=== PATIENT | male | born 1965 | race Caucasian/White ===

== ENCOUNTER → 2020-05-12 07:14 | Outpatient (CLI) | payer BC, SELFPAY ==
--- NOTE | 2020-05-12 07:21 | CT_ITS ---
PROCEDURE: CT LUNG SCREENING CLINICAL INDICATION: H/O NICOTINE DEPENDENCE COMPARISON: No exams were available for comparison TECHNIQUE: The exam was performed on a GE Light Speed [address] scanner using 2.90 mGy CTDI. A low dose helical CT CHEST was performed on a multi-detector scanner. All CT scans at the facility use one or more dose reduction, viz: automated exposure control, ma/kV adjustment per patient size (including targeted exams where dose is matched to indication, i.e. head), or iterative reconstruction technique. The LDCT was performed in a facility that meets the criteria for the screening program. Data regarding this exam was submitted to ACR which is an approved registry. The order for this exam indicates that it came as a result of a lung cancer screening counseling shard decision-making visit that included all the elements required of such a visit including smoking cessation. The radiologist interpreting this exam meets the CMS criteria for the LDCT lung cancer screening program. The exam is reported using the Lung-RADS classification scale and reported to the ACR registry. NOTE: This study was performed for the specific purposes of lung cancer screening and is not an alternative to diagnostic chest CT. RADIATION DOSE: CTDI vol(CT dose Index-volume) = 2.90mG DLP (Dose Length Product) = mGcm FINDINGS: Centrilobular and paraseptal emphysematous changes are noted bilaterally. Calcified granuloma in the left upper lobe. No lobar consolidation, pleural effusions or pneumothorax. The central tracheobronchial tree is patent. No suspicious lung nodules. The heart size is normal. Atherosclerotic vascular calcification of the thoracic aorta and the coronary arteries. No significant mediastinal adenopathy. Evaluation of hilar is limited due to lack of intravenous contrast although no gross lymphadenopathy is noted. Cholecystectomy is noted. Otherwise the visualized upper abdominal solid organs are unremarkable within the limitations of unenhanced low-dose study. Visualized osseous structures are unremarkable. The visualized thyroid gland is unremarkable. IMPRESSION: Lung-RADS Category 1 Negative Follow-up: Follow-up low-dose CT in 12 months. Dictated by: Luz King 05/12/2020 12:47 Luz King in [place] 05/12/2020 12:47
== END ==
PROVIDERS: PCP Family Medicine; Visit Provider Family Medicine
DX: Z87.891 Personal history of nicotine dependence (principal); Z12.2 Encounter for screening for malignant neoplasm of respiratory organs
CPT/HCPCS: 71271

== ENCOUNTER → 2021-05-21 15:13 | Outpatient (CLI) | payer BC, SELFPAY ==
--- NOTE | 2021-05-21 15:16 | CT_ITS ---
FINAL REPORT CLINICAL HISTORY: smoker 1 ppd x 40 years. copd, cad COMPARISON: May 12, 2020 FINDINGS: Low-Dose Chest CT CTDI vol (mGy): 2.90 DLP (mGy-cm): 98.47 Axial images were obtained from the lung apex to the mid abdomen by computed tomography. Low-dose protocol was utilized. FINDINGS: CHEST: There is no axillary adenopathy. There is no hilar or mediastinal adenopathy. The heart is proper size. There are moderate coronary artery calcifications. There is no pericardial or pleural effusion. Limited images of the upper abdomen are unremarkable. Lung window images demonstrate no suspicious infiltrate or nodule. There are mild changes of emphysema with mild pulmonary scarring. There is calcified granuloma in the left lung. IMPRESSION: Lung RADS category 1. Recommend 12 month follow-up low-dose chest CT. Reviewed, Interpreted and Dictated by Filipe Brown III, MD Transcribed by Piper Tolbert Authenticated by Filipe Brown III, MD on 05/21/2021 04:30:[address] [facility]
== END ==
PROVIDERS: PCP Family Medicine; Visit Provider Nurse Practitioner
DX: Z87.891 Personal history of nicotine dependence (principal); Z12.2 Encounter for screening for malignant neoplasm of respiratory organs
CPT/HCPCS: 71271

== ENCOUNTER → 2021-05-31 16:45 | Outpatient (CLI) | payer BC, SELFPAY | PROVIDERS: PCP Family Medicine; Visit Provider Internal Medicine | DX: Z11.52 Encounter for screening for COVID-19 (principal) | CPT/HCPCS: C9803; U0003; U0005 ==

== ENCOUNTER 2021-06-02 08:46 | Day surgery (SDC) | payer BC, SELFPAY ==
[2021-05-31 13:29] VITALS: BMI 26.4
[2021-06-02 09:12] VITALS: BP 147/99; PULSE 79; RESP 18; TEMP 36.7; O2SAT 96
--- NOTE | 2021-06-02 10:17 | HMH.ANESCL ---
[facility] Anesthesia Checklist - Patient Identification Patient Identification: Arm Band - Structural Data Admitted From: Home Planned Operative Procedure/s: colonoscopy Consent for Planned Operative Procedure(s) Verified: Yes Verified Documents: Surgical Consent, History and Physical - NPO Status Verified Time NPO: 00:00 - Additional verifications Anesthesia Reactions: No - Airway Assessment C-Spine Mobility Assessed: Yes (mp2) TMJ Mobility Assessed: Yes Dentition: Good Dentition - Neurological Assessment Level of Consciousness: Awake, Alert - Anesthesia Plan Anesthesia Risk discussed: Yes Anesthesia Plan: Verified ASA Class: III Anesthesia Type: MAC [facility] History I have reviewed the patient's past medical history: Yes Medical History: Reports:: Cancer (lung), Coronary Artery Disease, Diabetes Mellitus Type 2, Hyperlipidemia, Hypertension Denies:: Diabetes Mellitus Type 1, Internal Pacemaker, MRSA, Seizures *Have you ever received a pneumonia vaccine?: No *Have you received a flu vaccine this season?: No Anesthesia experience/problems:: nac Laterality Cases: Left: Arthroscopy Knee, Bilateral: Tonsillectomy Other Surgeries: Yes: Cholecystectomy. No: Pacemaker Amputation: No - *Social History Last grade of school completed: High school graduate Smoking Status: Current every day smoker Tobacco Type: cigarettes # Packs/Day (cigarettes): 1 Alcohol Intake: never Substance Use Type: denies use *Occupational Status:: employed Housing: house Household Members: spouse *Travel in the last 8 weeks: None Family Hx:: No significant family history
[2021-06-02 10:22] VITALS: O2SAT 96
[2021-06-02 11:00] VITALS: BP 108/68; PULSE 76; RESP 18; TEMP 36.4; O2SAT 94
--- NOTE | 2021-06-02 11:00 | HMH.SCOPE ---
- Procedure: Date: 06/02/21 Patient Date of :: 1965 Procedure Performed:: Colonoscopy Indications:: The patient is a 55 year old with a positive cologuard test Performing Provider:: Deejay Burrell MD Referring Provider:: Jorge Ling MD Sedation:: See RN notes Procedure:: After placing the patient in the left lateral decubitus position, the colonoscopy was gently inserted into the rectum and under direct visualization advanced to the cecum which was identified by transillumination in the right lower quadrant, identification of the ileocecal valve, appendiceal orifice, and cecal strap. Color, texture, mucosa, and anatomy of the colon were carefully examined with the scope. Findings:: Anal canal: normal Rectum: Internal hemorrhoids Sigmoid colon: Pedunculatd polyp approximately 2-2.5 cm in size at rectosigmoid junction. Removed with snare cautery polypectomy. Polyp was retrieved. Sessile polyp 5-6 mm in size. Removed with snare cautery polypectomy. Polyp was retrieved. Few small diverticula Descending colon: Sessile polyp 5 mm in size. Removed with snare cautery polypectomy. Polyp was retrieved Splenic flexure: normal Transverse colon: normal without polyps or inflammatory changes Hepatic flexure: normal Ascending colon: normal without polyps or inflammatory changes Cecum: normal Terminal ileum: not visualized Fair bowel preparation. Time was spent irrigating and cleansing mucosa Recommendations:: Await pathology results Repeat colonoscopy in 2 years Complications:: None Estimated blood obtained (mL): 0
[2021-06-02 11:10] VITALS: BP 117/76; PULSE 71; RESP 18; TEMP 36.4; O2SAT 97
[2021-06-02 11:20] VITALS: BP 109/68; PULSE 70; RESP 18; TEMP 36.4; O2SAT 96
[2021-06-02 11:30] VITALS: BP 111/68; PULSE 68; RESP 18; TEMP 36.4; O2SAT 97
[2021-11-11 10:59] LABS: POC Glucose,Bedside 178 (70-110)
== END 2021-06-02 11:30 | disposition home or self-care (01) ==
LOC: OUTP 08:47
PROVIDERS: PCP Family Medicine; Visit Provider Internal Medicine
PROC: 0DJD8ZZ Inspection of Lower Intestinal Tract, Via Natural or Artificial Opening Endoscopic (ICD-10-PCS; CPT 45378; principal; 2021-06-02 10:00)
DX: K64.9 Unspecified hemorrhoids (principal); K63.5 Polyp of colon; K57.32 Diverticulitis of large intestine without perforation or abscess without bleeding; I25.10 Atherosclerotic heart disease of native coronary artery without angina pectoris; E11.9 Type 2 diabetes mellitus without complications; E78.5 Hyperlipidemia, unspecified; I10 Essential (primary) hypertension; Z85.118 Personal history of other malignant neoplasm of bronchus and lung; Z72.0 Tobacco use; Z79.82 Long term (current) use of aspirin; Z79.899 Other long term (current) drug therapy
CPT/HCPCS: 45385; 45380; 82962; J2704

== ENCOUNTER → 2021-06-29 08:12 | Outpatient (CLI) | payer BC, SELFPAY | PROVIDERS: Visit Provider Internal Medicine | DX: Z01.812 Encounter for preprocedural laboratory examination (principal); Z11.52 Encounter for screening for COVID-19; Z86.010 Personal history of colon polyps | CPT/HCPCS: C9803; U0003; U0005 ==

== ENCOUNTER 2021-06-30 08:40 | Day surgery (SDC) | payer BC, SELFPAY ==
[2021-06-29 08:21] VITALS: BMI 26.4
[2021-06-30 08:53] VITALS: BP 157/98; PULSE 92; RESP 16; TEMP 36.5; O2SAT 98
--- NOTE | 2021-06-30 08:59 | HMH.ANESCL ---
[facility] Anesthesia Checklist - Patient Identification Patient Identification: Arm Band - Structural Data Admitted From: Home Planned Operative Procedure/s: Flex. sig Consent for Planned Operative Procedure(s) Verified: Yes - NPO Status Verified Time NPO: 00:00 - Additional verifications Anesthesia Reactions: No - Airway Assessment C-Spine Mobility Assessed: Yes TMJ Mobility Assessed: Yes Dentition: Dentures-good fit - Neurological Assessment Level of Consciousness: Awake Hx Seizures: No Numbness or tingling in extremities: No - Anesthesia Plan Anesthesia Risk discussed: Yes Anesthesia Plan: Verified ASA Class: III Anesthesia Type: MAC [facility] History I have reviewed the patient's past medical history: Yes Medical History: Reports:: Coronary Artery Disease, Diabetes Mellitus Type 2, Gastroesophageal Reflux Disease(GERD), Hyperlipidemia, Hypertension Denies:: Cancer, Diabetes Mellitus Type 1, Internal Pacemaker, MRSA, Seizures *Have you ever received a pneumonia vaccine?: No *Have you received a flu vaccine this season?: Yes Anesthesia experience/problems:: None Laterality Cases: Left: Arthroscopy Knee, Bilateral: Tonsillectomy Other Surgeries: Yes: Cholecystectomy. No: Pacemaker Amputation: No - *Social History Last grade of school completed: High school graduate Smoking Status: Current every day smoker Tobacco Type: cigarettes # Packs/Day (cigarettes): 1 Alcohol Intake: never Substance Use Type: denies use *Occupational Status:: employed Housing: house Household Members: spouse *Travel in the last 8 weeks: None Family Hx:: No significant family history
[2021-06-30 09:05] LABS: POC Glucose,Bedside 324 (70-110)
[2021-06-30 09:31] VITALS: O2SAT 98
--- NOTE | 2021-06-30 09:46 | HMH.SCOPE ---
- Procedure: Date: 06/30/21 Patient Date of :: 1965 Procedure Performed:: Flexible sigmoidoscopy Indications:: The patient had a screening colonoscopy recently and showed a large polyp at 25 cm. 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 Color, texture, mucosa, and anatomy of the colon were carefully examined with the scope. Findings:: At approximately 25 cm there was residual polyp tissue encountered which was less than 10 mm in size. Residual polyp was removed completely with snare cautery polypectomy and the polyp was retrieved. Recommendations:: Await pathology results Repeat fulll colonoscopy in 1 year Complications:: None Estimated blood obtained (mL): 0
[2021-06-30 09:47] VITALS: BP 124/79; PULSE 77; RESP 18; TEMP 36.3; O2SAT 96
[2021-06-30 09:57] VITALS: BP 121/80; PULSE 73; RESP 18; TEMP 36.3; O2SAT 98
[2021-06-30 10:07] VITALS: BP 121/72; PULSE 74; RESP 18; TEMP 36.3; O2SAT 98
[2021-06-30 10:17] VITALS: BP 130/81; PULSE 77; RESP 18; TEMP 36.3; O2SAT 99
== END 2021-06-30 10:17 | disposition home or self-care (01) ==
LOC: OUTP 08:42
PROVIDERS: PCP Family Medicine; Visit Provider Internal Medicine
PROC: 0DJD8ZZ Inspection of Lower Intestinal Tract, Via Natural or Artificial Opening Endoscopic (ICD-10-PCS; CPT 45330; principal; 2021-06-30 09:30)
DX: Z86.010 Personal history of colon polyps (principal); K63.5 Polyp of colon; I25.10 Atherosclerotic heart disease of native coronary artery without angina pectoris; E11.9 Type 2 diabetes mellitus without complications; K21.9 Gastro-esophageal reflux disease without esophagitis; E78.5 Hyperlipidemia, unspecified; I10 Essential (primary) hypertension; Z72.0 Tobacco use; Z79.82 Long term (current) use of aspirin; Z79.899 Other long term (current) drug therapy
CPT/HCPCS: 45338; 82962; J2704

== ENCOUNTER → 2022-02-07 10:30 | Outpatient (CLI) | payer BC, SELFPAY | PROVIDERS: PCP Nurse Practitioner; Visit Provider Nurse Practitioner | DX: R42 Dizziness and giddiness (principal) ==

== ENCOUNTER 2022-02-07 11:38 | Observation (INO) | payer BC, SELFPAY ==
[2022-02-07] VITALS (13 sets, daily range): BP systolic 146–175; BP diastolic 87–105; PULSE 68–94; RESP 18; TEMP 36.5–37.2; O2SAT 95–100; BMI 25.9
--- NOTE | 2022-02-07 11:53 | PC.NURSE ---
Checked patients blood sugar in [facility], it read HI. Pt is very unsteady and has been using a cane to get around which is not his normal.
--- NOTE | 2022-02-07 12:00 | ECG_ITS ---
APPROVED REPORT Exam: Resting ECG HR:73 bpm ECG Measurements Heart Rate 73 AXES MI 199 P 54 QRSd 96 QRS -10 QT 409 T -7 QTc 435 Conclusion SINUS RHYTHM MODERATE VOLTAGE CRITERIA FOR LVH, CONSIDER NORMAL VARIANT [MEETS CRITERIA IN ONE OF: R(aVL), S(V1), R(V5), R(V5/V6)+S(V1)] POSSIBLE SEPTAL MYOCARDIAL INFARCTION , PROBABLY OLD [30 ms Q WAVE IN V1/V2] BORDERLINE ECG UNCONFIRMED REPORT Electronically signed by : Ayo Guerrero MD 02/08/2022 20:12:27
[2022-02-07 12:07] LABS: VBG Base Excess 0.7 mmol/L (-2.4-2.3); VBG HCO3 26.9 mmol/L (23-30); VBG Oxygen Saturation 39.3 % (50-70); VBG PH 7.31 mmol/L (7.31-7.41); VBG Total CO2 28.6 mmol/L (23-27)
[2022-02-07 12:12] LABS: Chloride 85 mmol/L (98-107); Sodium 125 mmol/L (136-145)
[2022-02-07 12:14] LABS: Alanine Aminotransferase 43 U/L (12-78); Aspartate Amino Transferase 50 U/L (17-59); Blood Urea Nitrogen 13 mg/dl (9-20); Creatinine Clearance Estimated 147 mL/min (50-200); Estimated Glomerular Filt Rate 116 ml/min (>60); GFR (African American) 141 ML/MIN (>60)
[2022-02-07 12:15] LABS: Albumin Level 3.8 g/dl (3.5-5.0); Albumin/Globulin Ratio 1.2 (1.1-1.8); Alkaline Phosphatase 249 U/L (38-126); Bilirubin,Total 0.6 mg/dl (0.2-1.3); Calcium 9.7 mg/dl (8.4-10.2); Carbon Dioxide 32 mmol/L (22.0-30.0); Globulin 3.2 g/dL (1.3-3.2)
[2022-02-07 12:16] LABS: Basophils # 0.2 K/mm3 (0-0.2); Basophils % 1.4 % (0.1-2.0); Eosinophils # 0.2 K/mm3 (0.0-0.4); Eosinophils % 1.8 % (0.1-12.0); Hemoglobin 15.8 g/dL (14.1-18.0); Lymphocytes # 2.8 K/mm3 (0.7-4.5); Lymphocytes % 23.1 % (10-50); Mean Corpuscular HGB Conc 33.7 g/dL (31.8-35.4); Mean Corpuscular Hemoglobin 28.3 pg (27.0-31.2); Mean Platelet Volume 7.6 fl (7.4-10.4); Monocytes # 0.3 K/mm3 (0.1-1.0); Monocytes % 2.9 % (1.7-9.3); Neutrophils # 8.4 K/mm3 (1.8-7.8); Neutrophils % 70.8 % (37.0-80.0); Platelet Count 326 K/mm3 (142-424); Red Blood Count 5.59 M/mm3 (4.60-6.20); White Blood Count 11.9 K/mm3 (4.8-10.8)
[2022-02-07 12:24] LABS: Glucose 670 mg/dl (74-100)
--- NOTE | 2022-02-07 12:25 | PC.NURSE ---
CRITICAL LAB RECEIVED FROM [facility] IN LAB. GLUCOSE 670. PT NAME AND R/V. DR. HUFFMAN NOTIFIED
[2022-02-07 12:31] LABS: Acetone, Serum (Rapid) None Detected (None Detect)
[2022-02-07 12:40] LABS: Lactic Acid 2.4 mmol/L (0.7-2.1)
--- NOTE | 2022-02-07 12:52 | PC.NURSE ---
Pt up to the restroom to void at this time. Urine specimen collected and sent to lab.
[2022-02-07 12:55] LABS: Microscopic, Urine URINE MICROSCOPIC (MICROSCOPIC)
[2022-02-07 12:58] LABS: Appearance,Urine CLEAR (Clear); Bilirubin,Urine Negative (Negative); Blood, Urine Negative (Negative); Color,Urine YELLOW (Yellow); Glucose,Urine (UA) 3+ (Negative); Ketones,Urine Negative (Negative); Leukocyte Esterase,Urine Negative (Negative); Nitrate,Urine Negative (Negative); PH,Urine 5.5 (5.0-8.5); Protein,Urine Negative (Negative); Specific Gravity, Urine <= 1.005 (1.005-1.030); Urobilinogen,Urine 0.2 EU/dl (0.2)
[2022-02-07 13:10] LABS: Squamous Epithelial Cell,Urine Occasional #/hpf (0-5)
--- NOTE | 2022-02-07 13:22 | XR_ITS ---
PROCEDURE INFORMATION: Exam: XR Chest Exam date and time: 02/07/2022 1:47 PM Age: 56 years old Clinical indication: Cough TECHNIQUE: Imaging protocol: Radiologic exam of the chest. Views: 1 view. COMPARISON: CT LUNG SCREENING 05/21/2021 3:21 PM FINDINGS: Lungs: Unremarkable. No consolidation. Pleural spaces: Unremarkable. No pleural effusion. No pneumothorax. Heart/Mediastinum: Unremarkable. No cardiomegaly. Bones/joints: Unremarkable. IMPRESSION: No acute findings.
--- NOTE | 2022-02-07 13:22 | PC.NURSE ---
notified pharmacy of need for insulin drip for pt
--- NOTE | 2022-02-07 13:24 | CT_ITS ---
PROCEDURE INFORMATION: Exam: CT Head Without Contrast Exam date and time: 02/07/2022 1:39 PM Age: 56 years old Clinical indication: Dizziness; Additional info: Glucose >600, bidirectional nystagmus TECHNIQUE: Imaging protocol: Computed tomography of the head without contrast. Radiation optimization: All CT scans at this facility use at least one of these dose optimization techniques: automated exposure control; mA and/or kV adjustment per patient size (includes targeted exams where dose is matched to clinical indication); or iterative reconstruction. COMPARISON: No relevant prior studies available. FINDINGS: Brain: There is no acute intracranial hemorrhage or mass effect. Mild diffuse volume loss is within the range of normal for patient age. There are small vessel ischemic changes within the periventricular and subcortical white matter, but the normal pearce/white matter delineation is maintained. Cerebral ventricles: No ventriculomegaly. Paranasal sinuses: There is moderate right frontal sinus mucosal thickening. There is opacification of left scattered ethmoid air cells. There is moderate left sphenoid sinus mucosal thickening. Mastoid air cells: Visualized mastoid air cells are well aerated. Bones/joints: Unremarkable. No acute fracture. Soft tissues: Unremarkable. IMPRESSION: No acute hemorrhage or edema.
--- NOTE | 2022-02-07 13:25 | HMH.EDGENADL ---
Discharge Plan Disposition Patient Disposition: Admitted As Inpatient Condition: Serious Clinical Impressions Clinical Impression: Hyperosmolar hyperglycemic state (HHS) Discharge ED Provider: Tru Ponce General Adult HPI General Chief complaint: Hyper/Hypoglycemia Stated complaint: high sugar Time Seen by Provider: 02/07/22 13:00 History of Present Illness HPI narrative: Patient is a 56-year-old gentleman with past medical history of COPD not on home oxygen, [id number] diabetes on multimodal drug therapy who presents emergency department for evaluation of weakness. Over the last 48 hours patient has had dizziness, intermittent blurry vision, intermittent encephalopathy in the middle of the night transiently and oriented with return to baseline, patient has polyuria. Denies fevers, abdominal pain, vomiting. Patient states that he has a mild cough. No other acute complaints at this time. Related Data Home Medications Medication Instructions Recorded Confirmed aspirin 81 mg chewable tablet 81 mg PO DAILY heart health 06/01/21 02/07/22 zaleplon 5 mg capsule 5 mg PO HS sleep 06/01/21 02/07/22 amlodipine 10 mg-benazepril 20 mg 1 cap PO DAILY Hypertension 02/07/22 02/07/22 capsule cholecalciferol (vitamin D3) 1,250 1,250 mcg PO WEEKLY Supplement 02/07/22 02/07/22 mcg (50,000 unit) capsule clopidogrel 75 mg tablet 75 mg PO DAILY PLATELET INHIB[employer]OR 02/07/22 02/07/22 metoprolol tartrate 100 mg tablet 100 mg PO BID Hypertension 02/07/22 02/07/22 semaglutide 0.25 mg or 0.5 mg (2 0.25 mg SQ WEEKLY Diabetes 02/07/22 02/07/22 mg/1.5 mL) subcutaneous pen injector (Ozempic) Previous Rx's Medication Instructions Recorded cetirizine 10 mg capsule 10 mg PO DAILY allergies #90 caps 02/07/22 empagliflozin 25 mg tablet 25 mg PO DAILY Diabetes #90 tabs 02/07/22 fenofibric acid (choline) 135 mg 135 mg PO DAILY Cholesterol #90 02/07/22 capsule,delayed release caps glimepiride 2 mg tablet 2 mg PO BID Diabetes #180 tabs 02/07/22 lansoprazole 30 mg delayed 30 mg PO DAILY GERD #90 tabs 02/07/22 release,disintegrating tablet metformin 1,000 mg tablet 1,000 mg PO BID Diabetes #180 tabs 02/07/22 methocarbamol 750 mg tablet 750 mg PO TID PRN pain #270 tabs 02/07/22 rosuvastatin 40 mg tablet 40 mg PO DAILY Cholesterol #90 tabs 02/07/22 Allergies Allergy/AdvReac Type Severity Reaction Status Date / Time No Known Allergies Allergy Verified 02/07/22 10:17 [facility] Disclaimer: The information contained in this section may have been updated after the patient was seen, as this information can be updated by other users. Medical History (Updated 02/07/22 @ 18:15 by Kelton Aguirre MD) Allergic rhinitis Colon cancer COPD (chronic obstructive pulmonary disease) Diabetes mellitus, type 2 Dyslipidemia Essential hypertension GERD (gastroesophageal reflux disease) History of ASCVD History of gastroesophageal reflux (GERD) History of heart attack History of left heart catheterization (LHC) Hyperlipidemia Hypertension Osteoarthritis Pneumonia Primary generalized (osteo)arthritis Sleep apnea Tobacco use disorder Type 2 diabetes mellitus without complications Vitamin B12 deficiency Vitamin D deficiency Surgical History (Updated 02/07/22 @ 16:56 by Lissa Phan RN) History of cholecystectomy History of colonoscopy History of left knee surgery Family History (Updated 02/07/22 @ 16:57 by Lissa Phan RN) Father Family history of stroke Grandmother Family history of Alzheimer's disease Social History (Updated 02/07/22 @ 16:57 by Lissa Phan RN) Smoking Status: Current every day smoker tobacco type: cigarettes packs per day: 1 alcohol intake: never substance use type: denies use current occupational status: retired Travel in the last 8 weeks: None household members: spouse housing: house current occupational exposures/hazards: No caffeine: Yes ROS Obtained: Yes Systems r
--- NOTE | 2022-02-07 13:42 | PC.NURSE ---
Addendum entered by Winsome Eaton RN 02/07/22 13:42: PT BACK IN ROOM FROM CT Original Note: PT IN CT
--- NOTE | 2022-02-07 14:05 | PC.NURSE ---
CLARIFIED ORDER WITH ER MD FOR INSULIN DRIP AT 9 UNITS/HR, STATES TO RECHECK PT FSBS IN 30 MINUTES AFTER STARTING DRIP
[2022-02-07 14:07] LABS: Coronavirus 19, PCR Not Detected (NotDetected); Influenza A, PCR Not Detected (NotDetected); Influenza B, PCR Not Detected (NotDetected)
--- NOTE | 2022-02-07 14:39 | PC.NURSE ---
fsbs 532
[2022-02-07 14:43] LABS: POC Glucose,Bedside 538 (70-110)
--- NOTE | 2022-02-07 14:53 | PC.NURSE ---
notified ER of fsbs 538 states to decrease insulin drip rate to 5 units/hr
--- NOTE | 2022-02-07 15:07 | PC.NURSE ---
Spoke with trevor in care management regarding admission
[2022-02-07 15:18] LABS: POC Glucose,Bedside 523 (70-110)
--- NOTE | 2022-02-07 15:31 | HMH.PHAINT1 ---
Pharmacy Intervention Comments: MEDICATION RECONCILIATION COMPLETED ON PATIENT USING EXTERNAL FILL HISTORY FROM PHARMACY AND LIST FROM VISIT TODAY WITH MATA TORO. -THEA AYALA, JEWELLD
--- NOTE | 2022-02-07 15:44 | PC.NURSE ---
per supervisor wash house pt will be assigned to room 207, room will need to be cleaned first
--- NOTE | 2022-02-07 16:23 | PC.NURSE ---
re-checked blood sugar: 417 RODO vinson notified. pt given some more water, lights turned off and no other needs at this time
--- NOTE | 2022-02-07 16:24 | PC.NURSE ---
SPOKE WITH DR. QUIGLEY. HE STATED INSULIN GTT COULD BE D/C'D. HE WOULD TREAT PATIENT WITH IVF.
[2022-02-07 16:28] LABS: POC Glucose,Bedside 417 (70-110)
[2022-02-07 16:30] LABS: Reflex Lactic Add Lactic Reflex
--- NOTE | 2022-02-07 16:30 | PC.NURSE ---
report called to RODO Beckman on second floor at this time. States she will come down to transport pt.
--- NOTE | 2022-02-07 16:40 | PC.NURSE ---
pt to 2nd floor via WC with RN
--- NOTE | 2022-02-07 16:44 | PC.NURSE ---
patient arrived by wheelchair to floor from ED
--- NOTE | 2022-02-07 18:06 | EXP.HP ---
History of Present Illness *Admission Date: 02/07/22 *Reason for visit:: Weakness, dizziness, blurry vision *History of present illness: Patient is a 56-year-old male with past medical history of hypertension, type 2 diabetes, and COPD who came to the ER for feeling dizzy, tired, and intermittent blurry vision over the last 2 days. Patient is well sometimes feels confused and is urinating a lot. He is on several different medications for type 2 diabetes, although he has been out of his Jardiance as he is changing insurance. Patient reports he does not check his blood sugar very often. Review of systems is otherwise negative, no fever, chills, chest pain, shortness of breath. [facility] Disclaimer: The information contained in this section may have been updated after the patient was seen, as this information can be updated by other users. Medical History (Updated 02/07/22 @ 18:15 by Kelton Aguirre MD) Allergic rhinitis Colon cancer COPD (chronic obstructive pulmonary disease) Diabetes mellitus, type 2 Dyslipidemia Essential hypertension GERD (gastroesophageal reflux disease) History of ASCVD History of gastroesophageal reflux (GERD) History of heart attack History of left heart catheterization (LHC) Hyperlipidemia Hypertension Osteoarthritis Pneumonia Primary generalized (osteo)arthritis Sleep apnea Tobacco use disorder Type 2 diabetes mellitus without complications Vitamin B12 deficiency Vitamin D deficiency Surgical History (Updated 02/07/22 @ 16:56 by Lissa Phan RN) History of cholecystectomy History of colonoscopy History of left knee surgery Family History (Updated 02/07/22 @ 16:57 by Lissa Phan RN) Father Family history of stroke Grandmother Family history of Alzheimer's disease Social History (Updated 02/07/22 @ 16:57 by Lissa Phan RN) Smoking Status: Current every day smoker tobacco type: cigarettes packs per day: 1 alcohol intake: never substance use type: denies use current occupational status: retired Travel in the last 8 weeks: None household members: spouse housing: house current occupational exposures/hazards: No caffeine: Yes Review of Systems Constitutional Constitutional: Reports system reviewed and no additional complaints, except as documented, Denies anorexia, Denies body ache(s), Denies chills, Reports fatigue, Denies fever(s), Denies frequent falls, Denies headache(s), Reports lethargy and Reports weakness Eyes Eyes: Reports blurry vision and Reports change in vision ENT Ears, Nose, Mouth, and Throat: Reports disequilibrium, Reports dizziness and Denies headache(s) *Cardiovascular Cardiovascular: Denies chest pain, Denies chest pain at rest, Denies chest pain with activity, Denies claudication, Denies dyspnea, Denies dyspnea on exertion, Denies edema and Denies leg edema *Respiratory Respiratory: Denies chest congestion, Denies cough, Denies dyspnea, Denies dyspnea on exertion, Denies excessive phlegm production and Denies hemoptysis *Gastrointestinal Gastrointestinal: Denies abdominal pain, Denies belching, Denies bloating, Denies change in bowel habits, Denies constipation, Denies diarrhea, Denies dyspepsia, Denies heartburn, Denies hematemesis and Denies loose stools *Genitourinary Genitourinary: Denies difficulty urinating and Reports urinary frequency *Musculoskeletal Musculoskeletal: Reports abnormal gait and Denies myalgias *Neurologic Neurologic: Reports abnormal gait, Denies abnormal speech, Reports confusion, Reports disequilibrium, Reports dizziness, Denies localized weakness, Denies frequent falls, Denies headache(s) and Reports weakness Psychiatric Psychiatric: Denies anxiety, Reports confusion and Denies depression Endocrine Endocrine: Reports fatigue Meds Home Medications and Allergies Home Medications Medication Instructions Recorded Confirmed Type aspirin 81 mg chewable tablet 81 mg PO DAILY heart health 06/01/21 02/07/22 History zaleplon 5 mg
[2022-02-07 18:29] LABS: POC Glucose,Bedside 312 (70-110)
--- NOTE | 2022-02-07 18:47 | ECG_ITS ---
APPROVED REPORT Exam: Resting ECG HR:88 bpm ECG Measurements Heart Rate 88 AXES WA 179 P 62 QRSd 106 QRS -29 QT 386 T 67 QTc 431 Conclusion SINUS RHYTHM SEPTAL MYOCARDIAL INFARCTION , OF INDETERMINATE AGE [40+ ms Q WAVE IN V1/V2] ABNORMAL ECG UNCONFIRMED REPORT Electronically signed by : Ayo Guerrero MD 02/08/2022 20:11:30
[2022-02-07 19:00] LABS: Anion Gap 6.9 mEq/L (5-15); Blood Urea Nitrogen 12 mg/dl (9-20); Calcium 8.8 mg/dl (8.4-10.2); Carbon Dioxide 29 mmol/L (22.0-30.0); Chloride 99 mmol/L (98-107); Creatinine Clearance Estimated 171 mL/min (50-200); Estimated Glomerular Filt Rate 139 ml/min (>60); GFR (African American) 168 ML/MIN (>60); Glucose 345 mg/dl (74-100); Potassium 3.9 mmoL/L (3.5-5.1); Sodium 131 mmol/L (136-145)
[2022-02-07 20:56] LABS: Hemoglobin A1C > 14.0 % (4.0-6.0)
[2022-02-07 21:53] LABS: POC Glucose,Bedside 355 (70-110)
[2022-02-07 22:17] LABS: Chloride 99 mmol/L (98-107)
[2022-02-07 22:18] LABS: Potassium 3.2 mmoL/L (3.5-5.1); Sodium 132 mmol/L (136-145)
[2022-02-07 22:21] LABS: Anion Gap 9.2 mEq/L (5-15); Blood Urea Nitrogen 8 mg/dl (9-20); Calcium 8.5 mg/dl (8.4-10.2); Carbon Dioxide 27 mmol/L (22.0-30.0); Creatinine Clearance Estimated 205 mL/min (50-200); Estimated Glomerular Filt Rate 171 ml/min (>60); GFR (African American) 207 ML/MIN (>60); Glucose 289 mg/dl (74-100)
[2022-02-08] VITALS: BP 155/89; PULSE 71; RESP 20; TEMP 36.6; O2SAT 97
[2022-02-08 00:11] LABS: POC Glucose,Bedside 273 (70-110)
[2022-02-08 02:23] LABS: Anion Gap 8.4 mEq/L (5-15); Blood Urea Nitrogen 6 mg/dl (9-20); Calcium 8.5 mg/dl (8.4-10.2); Carbon Dioxide 24 mmol/L (22.0-30.0); Chloride 101 mmol/L (98-107); Creatinine Clearance Estimated 205 mL/min (50-200); Estimated Glomerular Filt Rate 171 ml/min (>60); GFR (African American) 207 ML/MIN (>60); Glucose 255 mg/dl (74-100); Potassium 3.4 mmoL/L (3.5-5.1); Sodium 130 mmol/L (136-145)
[2022-02-08 04:00] VITALS: BP 163/93; PULSE 77; RESP 18; TEMP 36.6; O2SAT 99; BMI 26.1
--- NOTE | 2022-02-08 04:11 | PC.NURSE ---
Pt. alert and oriented times 4. He is now a q6 hour finger sticke while he is NPO. He has iv fluids at 250 ML / HR. He is on Plavix and uses a cane to go to the restroom. He pulled out his iv last night and we started an new one in the Right AC 20G one stick.
[2022-02-08 05:50] LABS: POC Glucose,Bedside 276 (70-110)
--- NOTE | 2022-02-08 05:57 | PC.NURSE ---
Pt. had some slight swelling in his hands and feet. He wanted the fluids stopped and refused to have them going.
[2022-02-08 06:51] LABS: Basophils # 0.1 K/mm3 (0-0.2); Basophils % 1.2 % (0.1-2.0); Eosinophils # 0.2 K/mm3 (0.0-0.4); Eosinophils % 1.7 % (0.1-12.0); Hematocrit 43.4 % (42.0-52.0); Hemoglobin 14.6 g/dL (14.1-18.0); Lymphocytes # 2.6 K/mm3 (0.7-4.5); Lymphocytes % 22.9 % (10-50); Mean Corpuscular HGB Conc 33.7 g/dL (31.8-35.4); Mean Corpuscular Hemoglobin 27.8 pg (27.0-31.2); Mean Corpuscular Volume 82.5 fl (80-94); Mean Platelet Volume 7.2 fl (7.4-10.4); Monocytes # 0.3 K/mm3 (0.1-1.0); Monocytes % 2.4 % (1.7-9.3); Neutrophils # 8.2 K/mm3 (1.8-7.8); Neutrophils % 71.8 % (37.0-80.0); Platelet Count 306 K/mm3 (142-424); Red Blood Count 5.26 M/mm3 (4.60-6.20); Red Cell Distribution Width 13.4 % (11.5-17.5); White Blood Count 11.4 K/mm3 (4.8-10.8)
[2022-02-08 07:16] LABS: Chloride 98 mmol/L (98-107); Potassium 3.4 mmoL/L (3.5-5.1); Sodium 129 mmol/L (136-145)
[2022-02-08 07:18] LABS: Alanine Aminotransferase 30 U/L (12-78); Aspartate Amino Transferase 34 U/L (17-59); Blood Urea Nitrogen 5 mg/dl (9-20); Creatinine Clearance Estimated 258 mL/min (50-200); Estimated Glomerular Filt Rate 222 ml/min (>60); GFR (African American) 268 ML/MIN (>60); Magnesium 1.6 mg/dl (1.6-2.3)
[2022-02-08 07:19] LABS: Albumin Level 3.3 g/dl (3.5-5.0); Albumin/Globulin Ratio 1.3 (1.1-1.8); Alkaline Phosphatase 199 U/L (38-126); Anion Gap 10.4 mEq/L (5-15); Bilirubin,Total 0.6 mg/dl (0.2-1.3); Calcium 8.8 mg/dl (8.4-10.2); Carbon Dioxide 24 mmol/L (22.0-30.0); Globulin 2.6 g/dL (1.3-3.2); Glucose 255 mg/dl (74-100); Total Protein,Serum 5.9 g/dl (6.3-8.2)
--- NOTE | 2022-02-08 07:42 | EXP.ACUTE.PN ---
Subjective *Date: 02/08/22 *Time: 07:42 Medical Exam Vital signs and Labs for Last 24 Hours: Vital Signs Temp Pulse Pulse Resp BP BP Pulse Ox 02/08/22 04:00 97.9 F 77 18 163/93 H 99 02/08/22 00:00 97.9 F 71 20 155/89 H 97 02/07/22 23:17 68 02/07/22 23:17 68 02/07/22 20:00 98.0 F 94 H 18 165/101 H 96 02/07/22 16:00 97.7 F 77 18 155/90 H 100 02/07/22 16:31 75 18 151/94 H 95 02/07/22 16:01 80 18 146/98 H 95 02/07/22 15:00 82 18 162/87 H 95 02/07/22 14:30 82 18 157/90 H 98 02/07/22 16:44 98.9 F 75 18 151/94 H 02/07/22 11:39 98.9 F 75 18 175/105 H 97 02/07/22 14:09 70 02/07/22 14:09 79 02/07/22 14:00 78 161/95 H 96 02/07/22 13:30 77 150/96 H 98 02/07/22 12:30 75 163/92 H 96 Intake and Output 02/07/22 02/07/22 02/08/22 15:59 23:59 07:59 Intake Total 355 / 355 1999 Output Total 700 / 1000 100 / 1000 200 / 200 Balance -700 / -645 255 / -645 1800 / 1800 Intake: Intake, Total IV Amount 355 / 355 1999 / 1999 0.9 % Sodium Chloride 1,000 ml 355 / 355 1999 / 1999 @ 250 mls/hr IV .Q4H [facility] Rx#: [id number] Output: Output, Urine Amount 700 / 1000 100 / 1000 200 / 200 Other: Weight 89.358 kg 89.086 kg 89.403 kg Patient Weight 02/08/22 23:59 Weight 89.403 kg Laboratory Results - last 24 hr 02/07/22 10:30: Urine Microalbumin 60.900 H 02/07/22 11:55: WBC 11.9 H, RBC 5.59, Hgb 15.8, Hct 47.0, MCV 84.0, MCH 28.3, MCHC 33.7, RDW 13.0, Plt Count 326, MPV 7.6, Neut % (Auto) 70.8, Lymph % (Auto) 23.1, [place] % (Auto) 2.9, Eos % (Auto) 1.8, Baso % (Auto) 1.4, Neut # (Auto) 8.4 H, Lymph # (Auto) 2.8, [place] # (Auto) 0.3, Eos # (Auto) 0.2, Baso # (Auto) 0.2 02/07/22 11:55: Sodium 125 L, Potassium 4.0, Chloride 85 L, Carbon Dioxide 32 H, Anion Gap 12.0, BUN 13, Creatinine 0.70, Estimated Creat Clear 147, Estimated GFR 116, Est GFR ( Amer) 141, Glucose 670 H*, Calcium 9.7, Total Bilirubin 0.6, AST 50, ALT 43, Alkaline Phosphatase 249 H, Total Protein 7.0, Albumin 3.8, Globulin 3.2, Albumin/Globulin Ratio 1.2, Acetone Level None detected 02/07/22 11:55: SARS-CoV-2 (PCR) Not detected, Influenza A Untype (PCR) Not detected, Influenza Type B (PCR) Not detected 02/07/22 12:03: VBG pH 7.31, VBG pCO2 55.0 H, VBG pO2 21.0 L, VBG HCO3 26.9, VBG Total CO2 28.6 H, VBG O2 Saturation 39.3 L, VBG Base Excess 0.7 02/07/22 12:17: Lactate 2.4 H 02/07/22 12:46: Urine Color Yellow, Urine Appearance Clear, Urine pH 5.5, Ur Specific [place] <= 1.005, Urine Protein Negative, Urine Glucose (UA) 3+, Urine Ketones Negative, Urine Blood Negative, Urine Nitrate Negative, Urine Bilirubin Negative, Urine Urobilinogen 0.2, Ur Leukocyte Esterase Negative, Urine RBC None, Urine WBC None, Ur Squamous Epith Cells Occasional 02/07/22 14:36: POC Glucose 538 H* 02/07/22 15:11: POC Glucose 523 H* 02/07/22 16:21: POC Glucose 417 H* 02/07/22 18:16: POC Glucose 312 H* 02/07/22 18:33: Lactate 1.0 02/07/22 18:33: Hemoglobin A1c > 14.0 H 02/07/22 18:33: Sodium 131 L, Potassium 3.9, Chloride 99, Carbon Dioxide 29, Anion Gap 6.9, BUN 12, Creatinine 0.60 L, Estimated Creat Clear 171, Estimated GFR 139, Est GFR ( Amer) 168, Glucose 345 H D, Calcium 8.8 02/07/22 20:11: POC Glucose 355 H* 02/07/22 22:00: Sodium 132 L, Potassium 3.2 L, Chloride 99, Carbon Dioxide 27, Anion Gap 9.2, BUN 8 L D, Creatinine 0.50 L, Estimated Creat Clear 205, Estimated GFR 171, Est GFR ( Amer) 207 D, Glucose 289 H, Calcium 8.5 02/08/22 00:02: POC Glucose 273 H 02/08/22 02:05: Sodium 130 L, Potassium 3.4 L, Chloride 101, Carbon Dioxide 24, Anion Gap 8.4, BUN 6 L, Creatinine 0.50 L, Estimated Creat Clear 205, Estimated GFR 171, Est GFR ( Amer) 207, Glucose 255 H, Calcium 8.5 02/08/22 05:36: POC Glucose 276 H 02/08/22 06:40: WBC 11.4 H, RBC 5.26, Hgb 14.6, Hct 43.4, MCV 82.5, MCH 27.8, MCHC 33.7, RDW 13.4, Plt Count 306, MPV 7.2 L, Neut % (Auto
[2022-02-08 08:00] VITALS: BP 178/101; PULSE 91; RESP 22; TEMP 36.3; O2SAT 97
--- NOTE | 2022-02-08 10:54 | PC.NURSE ---
Notified Dr. Serra of [facility]. Told to give sliding scale insulin as ordered.
[2022-02-08 11:13] LABS: POC Glucose,Bedside 493 (70-110)
[2022-02-08 11:33] VITALS: PULSE 87
--- NOTE | 2022-02-08 14:13 | EXP.DC.SUM ---
General Admission date:: 02/07/22 Discharge date: 02/08/22 HPI HPI HPI: Patient is a 56-year-old male with past medical history of hypertension, type 2 diabetes, and COPD who came to the ER for feeling dizzy, tired, and intermittent blurry vision over the last 2 days. Patient is well sometimes feels confused and is urinating a lot. He is on several different medications for type 2 diabetes, although he has been out of his Jardiance as he is changing insurance. Patient reports he does not check his blood sugar very often. Review of systems is otherwise negative, no fever, chills, chest pain, shortness of breath. Hospital Course Hospital Course Hospital Course: Patient is a 56-year-old male with past medical history of hypertension, type 2 diabetes, and COPD who is admitted for hyperosmolar hyperglycemic state. Responded well to Enslin drip with improvement in glucose. Initiated on basal regimen. Recommend resuming remainder of home diabetes regimen and having close follow-up with his PCP. Medically stable for discharge. Problems addressed as follows: //HHS -Initial presentation with glucose of 670. No acidosis on VBG. Was initiated on insulin drip and IV fluids and monitored overnight. Patient responded very well with no significant anion gap. Initiated on insulin glargine morning after admission, tolerated well. Has the ability to check his blood sugar at home. As he is feeling better he is requesting to go home. Recommended increasing his Lantus this evening to 20 units. Had extensive discussion with about insulin regimen adjustments. Goal is to have morning glucose between 100-150. Recommend increasing to 30 units Monday evening. Starting morning if morning glucose is above 150, increase by 5 units of Lantus daily with a goal of morning glucose less than 150. Hold at 50 units nightly if achieves this level without quite being at goal yet. Further management per PCP in the outpatient setting. Resume home regimen including glimepiride, metformin, Ozempic. -No confusion on day of discharge. Baseline mentation - Of note, A1c greater than 14 on presentation. Will need close follow-up and further monitoring in the outpatient //COPD - VBG does show some hypercapnia, additionally patient is a current smoker with wheezes on exam. -Started on duo nebs, responded well. Sent home with patient, has a nebulizer at home. //HTN -Resumed home medications including amlodipine/benazepril 10?20, metoprolol tartrate 100 mg p.o. twice daily. Exam Data for Last 24 hours Vital signs and Labs for Last 24 Hours: Temp Pulse Resp BP Pulse Ox 97.3 F L 87 22 178/101 H 97 02/08/22 08:00 02/08/22 11:33 02/08/22 08:00 02/08/22 08:00 02/08/22 08:00 Laboratory Results - last 24 hr 02/07/22 10:30: Urine Microalbumin 60.900 H 02/07/22 11:55: SARS-CoV-2 (PCR) Not detected, Influenza A Untype (PCR) Not detected, Influenza Type B (PCR) Not detected 02/07/22 14:36: POC Glucose 538 H* 02/07/22 15:11: POC Glucose 523 H* 02/07/22 16:21: POC Glucose 417 H* 02/07/22 18:16: POC Glucose 312 H* 02/07/22 18:33: Lactate 1.0 02/07/22 18:33: Hemoglobin A1c > 14.0 H 02/07/22 18:33: Sodium 131 L, Potassium 3.9, Chloride 99, Carbon Dioxide 29, Anion Gap 6.9, BUN 12, Creatinine 0.60 L, Estimated Creat Clear 171, Estimated GFR 139, Est GFR ( Amer) 168, Glucose 345 H D, Calcium 8.8 02/07/22 20:11: POC Glucose 355 H* 02/07/22 22:00: Sodium 132 L, Potassium 3.2 L, Chloride 99, Carbon Dioxide 27, Anion Gap 9.2, BUN 8 L D, Creatinine 0.50 L, Estimated Creat Clear 205, Estimated GFR 171, Est GFR ( Amer) 207 D, Glucose 289 H, Calcium 8.5 02/08/22 00:02: POC Glucose 273 H 02/08/22 02:05: Sodium 130 L, Potassium 3.4 L, Chloride 101, Carbon Dioxide 24, Anion Gap 8.4, BUN 6 L, Creatinine 0.50 L, Estimated Creat Clear 205, Estimated GFR 171, Est GFR ( Amer) 207, Glucose 255 H, Calcium 8.5 02/08/22 05:36: POC Glucose 276 H 02/08/22 06:
[2022-02-08 14:44] VITALS: BP 139/91
--- NOTE | 2022-02-09 14:02 | CARE MANAGER ---
Spoke with patient for post-discharge phone interview, patient is aware of appointment and has his medications.
== END 2022-02-08 15:01 | disposition home or self-care (01) ==
LOC: ER 13:23 → 2ND 17:11
PROVIDERS: Admitting Provider Emergency Medicine; Emergency Provider Emergency Medicine; PCP Nurse Practitioner; Visit Provider Emergency Medicine
DX: R42 Dizziness and giddiness (principal); J44.9 Chronic obstructive pulmonary disease, unspecified; F17.210 Nicotine dependence, cigarettes, uncomplicated; K21.9 Gastro-esophageal reflux disease without esophagitis; I10 Essential (primary) hypertension; Z79.02 Long term (current) use of antithrombotics/antiplatelets; Z79.84 Long term (current) use of oral hypoglycemic drugs; Z79.899 Other long term (current) drug therapy; E11.00 Type 2 diabetes mellitus with hyperosmolarity without nonketotic hyperglycemic-hyperosmolar coma (NKHHC); E55.9 Vitamin D deficiency, unspecified; E53.8 Deficiency of other specified B group vitamins
CPT/HCPCS: 36415; 70450; 71045; 80048; 80053; 81001; 82009; 82043; 82803; 82962; 83036; 83605; 83735; 85025; 87040; 93005; 94640; 99285; C9803; G0378; U0003; U0005

== ENCOUNTER → 2022-02-15 12:30 | Outpatient (CLI) | payer BC, SELFPAY ==
[2022-02-15 20:06] LABS: Basophils # 0.1 K/mm3 (0-0.2); Basophils % 0.7 % (0.1-2.0); Eosinophils # 0.2 K/mm3 (0.0-0.4); Eosinophils % 1.1 % (0.1-12.0); Hematocrit 48.2 % (42.0-52.0); Hemoglobin 15.5 g/dL (14.1-18.0); Lymphocytes # 3.7 K/mm3 (0.7-4.5); Lymphocytes % 27.8 % (10-50); Mean Corpuscular HGB Conc 32.2 g/dL (31.8-35.4); Mean Corpuscular Hemoglobin 28.1 pg (27.0-31.2); Mean Corpuscular Volume 87.2 fl (80-94); Mean Platelet Volume 8.6 fl (7.4-10.4); Monocytes # 0.5 K/mm3 (0.1-1.0); Monocytes % 3.9 % (1.7-9.3); Neutrophils # 8.9 K/mm3 (1.8-7.8); Neutrophils % 66.5 % (37.0-80.0); Platelet Count 448 K/mm3 (142-424); Red Blood Count 5.53 M/mm3 (4.60-6.20); White Blood Count 13.4 K/mm3 (4.8-10.8)
[2022-02-15 20:08] LABS: Alanine Aminotransferase 29 U/L (12-78); Albumin/Globulin Ratio 1.3 (1.1-1.8); Alkaline Phosphatase 182 U/L (38-126); Anion Gap 15.1 mEq/L (5-15); Aspartate Amino Transferase 31 U/L (17-59); Bilirubin,Total 0.4 mg/dl (0.2-1.3); Blood Urea Nitrogen 21 mg/dl (9-20); Calcium 9.9 mg/dl (8.4-10.2); Carbon Dioxide 23 mmol/L (22.0-30.0); Chloride 100 mmol/L (98-107); Estimated Glomerular Filt Rate 116 ml/min (>60); GFR (African American) 141 ML/MIN (>60); Glucose 208 mg/dl (74-100); Potassium 4.1 mmoL/L (3.5-5.1); Sodium 134 mmol/L (136-145)
== END ==
PROVIDERS: PCP Nurse Practitioner; Visit Provider Nurse Practitioner
DX: E11.9 Type 2 diabetes mellitus without complications (principal); J44.9 Chronic obstructive pulmonary disease, unspecified; Z79.4 Long term (current) use of insulin
CPT/HCPCS: 80053; 85025

== ENCOUNTER 2023-03-01 18:18 | Outpatient (CLI) | payer BC, SELFPAY ==
[2023-03-01 17:41] LABS: Basophils # 0.2 K/mm3 (0-0.2); Eosinophils # 0.3 K/mm3 (0.0-0.4); Eosinophils % 2.3 % (0.1-12.0); Hematocrit 46.9 % (42.0-52.0); Hemoglobin 15.8 g/dL (14.1-18.0); Lymphocytes # 2.5 K/mm3 (0.7-4.5); Lymphocytes % 17.4 % (10-50); Mean Corpuscular HGB Conc 33.6 g/dL (31.8-35.4); Mean Corpuscular Hemoglobin 27.4 pg (27.0-31.2); Mean Corpuscular Volume 81.4 fl (80-94); Monocytes # 0.6 K/mm3 (0.1-1.0); Monocytes % 4.4 % (1.7-9.3); Neutrophils # 10.7 K/mm3 (1.8-7.8); Neutrophils % 74.9 % (37.0-80.0); Platelet Count 292 K/mm3 (142-424); Red Blood Count 5.75 M/mm3 (4.60-6.20); Red Cell Distribution Width 14.5 % (11.5-17.5); White Blood Count 14.3 K/mm3 (4.8-10.8)
[2023-03-01 18:07] LABS: Potassium 3.7 mmoL/L (3.5-5.1)
[2023-03-01 18:08] LABS: Alanine Aminotransferase 41 U/L (12-78); Albumin Level 4.1 g/dl (3.5-5.0); Albumin/Globulin Ratio 1.5 (1.1-1.8); Alkaline Phosphatase 156 U/L (38-126); Anion Gap 14.7 mEq/L (5-15); Aspartate Amino Transferase 39 U/L (17-59); Bilirubin,Total 0.5 mg/dl (0.2-1.3); Blood Urea Nitrogen 7 mg/dl (9-20); Calcium 9.1 mg/dl (8.4-10.2); Carbon Dioxide 24 mmol/L (22.0-30.0); Chloride 102 mmol/L (98-107); Chol/HDL Ratio 10.1 (1-3.5); Cholesterol 243 mg/dl (140-200); Estimated Glomerular Filt Rate 99 ml/min (>60); GFR (African American) 120 ML/MIN (>60); Globulin 2.8 g/dL (1.3-3.2); Glucose 208 mg/dl (74-100); HDL Cholesterol 24 mg/dl (40-60); Sodium 137 mmol/L (136-145); Total Protein,Serum 6.9 g/dl (6.3-8.2); Triglycerides 483 mg/dl (30-150)
[2023-03-01 18:19] LABS: Direct LDL Cholesterol 138.01 mg/dL (100-129)
[2023-03-01 18:51] LABS: 25-OH Vitamin D, Total 29.8 ng/mL (30-100)
[2023-03-01 18:54] LABS: Creatinine,Urine Random 45 mg/dL (Not Estab.); Microalbumin/Creatinine Ratio 160.2
[2023-03-01 19:03] LABS: Hemoglobin A1C 7.1 % (4.0-6.0)
[2023-03-01 19:12] LABS: Thyroid Stimulating Hormone 0.66 uIU/mL (0.465-4.68)
[2023-03-01 19:31] LABS: Vitamin B12 368 pg/mL (239-931)
== END 2023-03-01 23:59 ==
PROVIDERS: PCP Nurse Practitioner; Visit Provider Nurse Practitioner
DX: E11.9 Type 2 diabetes mellitus without complications (principal); E53.8 Deficiency of other specified B group vitamins; E55.9 Vitamin D deficiency, unspecified; E78.5 Hyperlipidemia, unspecified; I10 Essential (primary) hypertension; K21.9 Gastro-esophageal reflux disease without esophagitis; Z12.5 Encounter for screening for malignant neoplasm of prostate; Z79.84 Long term (current) use of oral hypoglycemic drugs
CPT/HCPCS: 80053; 80061; 82043; 82306; 82570; 82607; 83036; 84443; 85025; G0103

== ENCOUNTER 2023-07-31 15:09 | Outpatient (CLI) | payer BC, SELFPAY ==
--- NOTE | 2023-07-31 15:12 | XR_ITS ---
FINAL REPORT CLINICAL HISTORY: cough, decreased breath sounds LLL, congestion x 1 week. smoker. COMPARISON: 01/29/2020 FINDINGS: No acute pulmonary density is evident. There is no evidence of effusion or other pleural disease. The mediastinum has a normal appearance. The cardiac silhouette is unremarkable. IMPRESSION: Unremarkable chest exam. Reviewed, Interpreted and Dictated by Dhiraj Davenport MD Transcribed by Cheyenne Rasheed Authenticated and . [facility]
[2023-07-31 19:22] LABS: Basophils # 0.1 K/mm3 (0-0.2); Basophils % 0.6 % (0.1-2.0); Eosinophils # 0.4 K/mm3 (0.0-0.4); Eosinophils % 2.7 % (0.1-12.0); Hematocrit 46.6 % (42.0-52.0); Hemoglobin 15.7 g/dL (14.1-18.0); Lymphocytes # 2.5 K/mm3 (0.7-4.5); Mean Corpuscular HGB Conc 33.6 g/dL (31.8-35.4); Mean Corpuscular Volume 83.2 fl (80-94); Mean Platelet Volume 8.1 fl (7.4-10.4); Monocytes # 0.7 K/mm3 (0.1-1.0); Monocytes % 5.2 % (1.7-9.3); Neutrophils # 10.4 K/mm3 (1.8-7.8); Neutrophils % 73.5 % (37.0-80.0); Platelet Count 315 K/mm3 (142-424); Red Cell Distribution Width 15.1 % (11.5-17.5); White Blood Count 14.1 K/mm3 (4.8-10.8)
[2023-07-31 19:36] LABS: Alanine Aminotransferase 27 U/L (12-78); Albumin Level 4.3 g/dl (3.5-5.0); Albumin/Globulin Ratio 1.5 (1.1-1.8); Alkaline Phosphatase 142 U/L (38-126); Anion Gap 15.5 mEq/L (5-15); Aspartate Amino Transferase 24 U/L (17-59); Bilirubin,Total 0.8 mg/dl (0.2-1.3); Blood Urea Nitrogen 8 mg/dl (9-20); Carbon Dioxide 24 mmol/L (22.0-30.0); Chloride 102 mmol/L (98-107); Estimated Glomerular Filt Rate 116 ml/min (>60); GFR (African American) 140 ML/MIN (>60); Globulin 2.9 g/dL (1.3-3.2); Glucose 204 mg/dl (74-100); Potassium 3.5 mmoL/L (3.5-5.1); Sodium 138 mmol/L (136-145); Total Protein,Serum 7.2 g/dl (6.3-8.2)
[2023-07-31 19:48] LABS: 25-OH Vitamin D, Total 75.1 ng/mL (30-100)
[2023-07-31 20:18] LABS: Hemoglobin A1C 6.7 % (4.0-6.0)
== END 2023-07-31 23:59 | disposition home or self-care (01) ==
LOC: RAD 15:09
PROVIDERS: PCP Nurse Practitioner; Visit Provider Nurse Practitioner
DX: R06.89 Other abnormalities of breathing (principal); R05.9 Cough, unspecified; J44.9 Chronic obstructive pulmonary disease, unspecified; A49.9 Bacterial infection, unspecified; S90.822A Blister (nonthermal), left foot, initial encounter; E11.9 Type 2 diabetes mellitus without complications; I10 Essential (primary) hypertension; E55.9 Vitamin D deficiency, unspecified; Z79.84 Long term (current) use of oral hypoglycemic drugs; Z79.85 Long-term (current) use of injectable non-insulin antidiabetic drugs; F17.210 Nicotine dependence, cigarettes, uncomplicated
CPT/HCPCS: 71046; 80053; 82306; 83036; 85025; 87070; 87077; 87205

== ENCOUNTER 2024-02-29 18:22 | Outpatient (CLI) | payer BC, SELFPAY ==
[2024-02-29 18:44] LABS: Basophils # 0.1 K/mm3 (0-0.2); Basophils % 0.6 % (0.1-2.0); Eosinophils # 0.4 K/mm3 (0.0-0.4); Eosinophils % 2.9 % (0.1-12.0); Hematocrit 47.8 % (42.0-52.0); Hemoglobin 15.8 g/dL (14.1-18.0); Lymphocytes # 3.7 K/mm3 (0.7-4.5); Lymphocytes % 30.5 % (10-50); Mean Corpuscular HGB Conc 33.1 g/dL (31.8-35.4); Mean Corpuscular Hemoglobin 26.9 pg (27.0-31.2); Mean Corpuscular Volume 81.3 fl (80-94); Mean Platelet Volume 9.7 fl (7.4-10.4); Monocytes # 0.8 K/mm3 (0.1-1.0); Monocytes % 6.5 % (1.7-9.3); Neutrophils # 7.1 K/mm3 (1.8-7.8); Neutrophils % 59.2 % (37.0-80.0); Platelet Count 341 K/mm3 (142-424); Red Blood Count 5.88 M/mm3 (4.60-6.20); White Blood Count 12.1 K/mm3 (4.8-10.8)
[2024-02-29 19:04] LABS: Alanine Aminotransferase 37 U/L (12-78); Albumin Level 4.4 g/dl (3.5-5.0); Albumin/Globulin Ratio 1.6 (1.1-1.8); Alkaline Phosphatase 147 U/L (38-126); Anion Gap 13.1 mEq/L (5-15); Aspartate Amino Transferase 34 U/L (17-59); Bilirubin,Total 0.5 mg/dl (0.2-1.3); Blood Urea Nitrogen 15 mg/dl (9-20); Calcium 9.9 mg/dl (8.4-10.2); Carbon Dioxide 26 mmol/L (22.0-30.0); Chloride 102 mmol/L (98-107); Cholesterol 240 mg/dl (140-200); Estimated Glomerular Filt Rate 99 ml/min (>60); GFR (African American) 120 ML/MIN (>60); Globulin 2.7 g/dL (1.3-3.2); Glucose 90 mg/dl (74-100); HDL Cholesterol 24 mg/dl (40-60); Potassium 4.1 mmoL/L (3.5-5.1); Sodium 137 mmol/L (136-145); Total Protein,Serum 7.1 g/dl (6.3-8.2)
[2024-02-29 19:15] LABS: Direct LDL Cholesterol 133.88 mg/dL (100-129)
[2024-02-29 19:20] LABS: 25-OH Vitamin D, Total 29.3 ng/mL (30-100)
[2024-02-29 19:30] LABS: Triglycerides 474 mg/dl (30-150)
[2024-02-29 19:35] LABS: Prostate Specific Ag Screen 1.8 ng/ml (0.0-4.0); Thyroid Stimulating Hormone 0.78 uIU/mL (0.465-4.68)
[2024-02-29 19:43] LABS: HIV Combo NEGATIVE (Negative)
[2024-02-29 19:52] LABS: Hepatitis C Ab Qual. W/ RFX NEGATIVE (Negative)
[2024-02-29 19:54] LABS: Vitamin B12 379 pg/mL (239-931)
== END 2024-02-29 23:59 | disposition home or self-care (01) ==
LOC: LAB.DROPOF 18:24
PROVIDERS: PCP Nurse Practitioner; Visit Provider Nurse Practitioner
DX: E11.9 Type 2 diabetes mellitus without complications (principal); J44.9 Chronic obstructive pulmonary disease, unspecified; E53.8 Deficiency of other specified B group vitamins; E55.9 Vitamin D deficiency, unspecified; E78.5 Hyperlipidemia, unspecified; K21.9 Gastro-esophageal reflux disease without esophagitis; I10 Essential (primary) hypertension; Z12.5 Encounter for screening for malignant neoplasm of prostate; Z11.4 Encounter for screening for human immunodeficiency virus [HIV]; Z11.59 Encounter for screening for other viral diseases
CPT/HCPCS: 80053; 80061; 82306; 82607; 83036; 84443; 85025; 86803; 87389; G0103

== ENCOUNTER 2024-03-01 09:20 | Outpatient (CLI) | payer BC, SELFPAY | END 2024-03-01 23:59 | disposition home or self-care (01) | LOC: LAB.DROPOF 09:21 | PROVIDERS: PCP Nurse Practitioner; Visit Provider Nurse Practitioner | DX: Z02.9 Encounter for administrative examinations, unspecified (principal) ==

== ENCOUNTER 2024-03-15 12:51 | Outpatient (CLI) | payer BC, SELFPAY ==
--- NOTE | 2024-03-15 12:52 | CT_ITS ---
FINAL REPORT TECHNIQUE: Axial CT images of the chest were obtained without contrast. Low-dose protocol was utilized. This study was performed with techniques to keep radiation doses as low as reasonably achievable (ALARA). Individualized dose reduction techniques using automated exposure control or adjustment of mA and/or kV according to the patient's size were employed. CLINICAL HISTORY: lung cancer screening, smoker for 45 years, 1.5ppd COMPARISON: 05/21/2021 FINDINGS: CT CHEST WITHOUT, LOW DOSE SCREENING CT Di Vol: 2.90 mGy DLP: 106.55 mGy*cm There is no mediastinal mass or adenopathy. The heart size is normal. There is no pleural or pericardial effusion. The lung windows show no suspicious mass or nodule. Calcified granuloma is seen in the left upper lobe. Limited images of the upper abdomen demonstrate no acute findings. The gallbladder is surgically absent. IMPRESSION: No suspicious pulmonary mass or nodule. LR Category 1: 12 month follow-up low-dose chest CT is recommended per Fleischner criteria. Reviewed, Interpreted and Dictated by Andrea Giron MD Transcribed by Cheyenne Rasheed Authenticated and . [facility]
== END 2024-03-15 23:59 | disposition home or self-care (01) ==
LOC: RAD 12:52
PROVIDERS: PCP Nurse Practitioner; Visit Provider Nurse Practitioner
DX: Z87.891 Personal history of nicotine dependence (principal)
CPT/HCPCS: 71271

== ENCOUNTER 2024-04-12 07:42 | Outpatient (CLI) | payer BC, SELFPAY ==
--- NOTE | 2024-04-12 07:47 | CA_ITS ---
APPROVED REPORT EXAM: Comprehensive 2D, Doppler, and color-flow Echocardiogram Dinkey Engine Mechanic: Tiki Miramontes RT(R) Ht: 6 ft 1 in Wt: 211lbs BSA: 2.20 BP: 134/86 mmHg Indications: HTN, edema, smoker, DM, HLD, CAD, hx [place] 39 years aold, hx colon cancer 2D Dimensions LVEF (Salazar's) 44.70 % M: 52 - 72 LV Volume 115.30 mL M: 62 - 150 LV Volume Index 52.4 mL/m2 M: 34 - 74 LA Volume 44.20 mL LA Volume Index 20.09 mL/m2 (M/F) 16-34 EF AP4 50.70 % EF AP2 36.2 % EF BP 44.7 % GL Strain -13.6 % M-Mode Dimensions RVDd 4.26 cm (0.9-2.6) LA Diam 2.59 cm (1.9-4.0) LVDd 3.77 cm (3.5-5.7) LVDs 2.82 cm (3.5-5.7) IVSd 0.88 cm (0.6-1.1) PWd 0.84 cm (0.6-1.1) EF (Teich) 50.50% FS 25.20% EDV (Teich) 60.80 mL ESV (Teich) 30.10 mL LV Diastology E Decel Time 230 (160-240 msec) E/A Ratio 0.7 Aortic Valve WANDER Index 0.77 cm2/m2 AoV Peak Hiren. 199.0 (50-130 cm/s) AO Peak GR. 15.90 mmHg AO Mean GR. 7.80 (<5 mmHg) AO VTI 38.6 (18-25 cm) WANDER (VTI) 1.73 (2.5-4.5 cm2) Mitral Valve MV E Max Hiren. 68.0 (40-130 cm/s) MV A Velocity 102.0 (40-130 cm/s) E/A Ratio 0.67 MV PHT 67.0 ms Left Ventricle The left ventricle is normal size. The left ventricular systolic function is normal. The left ventricular ejection fraction is within the normal range. There is increased LV wall thickness. There is normal LV segmental wall motion. Transmitral Doppler flow pattern suggests impaired LV relaxation. LVEF is 55%. Right Ventricle The right ventricle is normal size. The right ventricular systolic function is normal. Atria The left atrium size is normal. The right atrium size is normal. No Doppler evidence of interatrial shunt. Aortic Valve The aortic valve is mildly Mild aortic stenosis is present. WANDER by continuity equation is 1.6 cm???. Peak velocity is 2.2 m/s. Mean AV gradient is 10 mmHg. Max AV gradient is 26 mmHg. Mild aortic regurgitation. Mitral Valve The mitral valve leaflets are mildly thickened. No evidence of mitral valve stenosis. Trace mitral regurgitation. Tricuspid Valve Tricuspid valve is grossly normal in structure and function. Trace tricuspid regurgitation. There is insufficient TR jet to estimate RVSP. Pulmonic Valve The pulmonary valve is normal in structure. Great Vessels The aortic root is normal in size. IVC is normal in size and collapses >50% with inspiration. Pericardium There is no pericardial effusion. Other Information Study Quality: Fair Conclusion Normal biventricular systolic function. Mild (WANDER by continuity equation is 1.6 cm???. Peak velocity is 2.2 m/s. Mean AV gradient is 10 mmHg. Max AV gradient is 26 mmHg). Mild AI, mild NV. Electronically signed by : Eunice Leos MD 04/23/2024 09:36:29
== END 2024-04-12 23:59 | disposition home or self-care (01) ==
LOC: RT 07:43
PROVIDERS: PCP Nurse Practitioner; Visit Provider Nurse Practitioner Family
DX: Z01.810 Encounter for preprocedural cardiovascular examination (principal); I35.2 Nonrheumatic aortic (valve) stenosis with insufficiency; I37.1 Nonrheumatic pulmonary valve insufficiency; R94.31 Abnormal electrocardiogram [ECG] [EKG]; R06.09 Other forms of dyspnea; E78.5 Hyperlipidemia, unspecified; K21.9 Gastro-esophageal reflux disease without esophagitis; I10 Essential (primary) hypertension; E11.9 Type 2 diabetes mellitus without complications
CPT/HCPCS: 93306

== ENCOUNTER 2024-04-16 12:12 | Outpatient (CLI) | payer BC, SELFPAY ==
--- NOTE | 2024-04-16 12:13 | NM_ITS ---
APPROVED REPORT Exam: Nuclear Stress Test Indication: high bp..high cholesterol..diabetes Patient Location: Outpatient Stress Tech: Elena Grimm AR Tech:Arielle Agustin, ARRT, RT (R)(N) Ht: 6 ft 1 in Wt: 200 lbs HR: 83 bpm BP: 155/92 mmHg BSA: 2.15 m2 TID: 1.05 BMI: 26.3 History: high bp..high cholesterol..diabetes Procedure: Patient received 0.4 mg of intravenous Lexiscan, resting heart rate 83 bpm, resting blood pressure 155/92 mmHg, with Lexiscan maximum heart rate achieved was 112 bpm which is 85 % of the maximum predicted heart rate and blood pressure was 156/91 mmHg. With Lexiscan, patient denied any complaint of chest pain. Cardiac Stress and Resting SPECT Images: Cardiac Stress and Resting SPECT images were obtained using technetium 99m Myoview 30.0 mCi stress and 10.48 mCi at rest. Resting and stress imaging in supine and prone positions demonstrate a large sized, moderate, predominantly fixed perfusion defect in the inferior LV wall. There is a small region of reversibility towards the inferoapical wall. Gated imaging demonstrates mild reduction in global LV systolic function. There is moderate hypokinesis of the basal to mid inferior LV wall. LVEF is calculated at 48%. Conclusion: Large sized, moderate, predominantly fixed perfusion defect in the inferior LV wall. There is a small region of reversibility towards the inferoapical wall. Findings are suggestive of partial reversible ischemia. Gated imaging demonstrates mild reduction in global LV systolic function. There is moderate hypokinesis of the basal to mid inferior LV wall. LVEF is calculated at 48%. Electronically signed by : Eunice Leos MD 04/17/2024 23:54:20
[2024-04-16] MEDS: REGADENOSON 0.4MG/5ML SYRINGE 0.4 MG IV (15:39)
== END 2024-04-16 23:59 | disposition home or self-care (01) ==
LOC: RAD 12:12
PROVIDERS: PCP Nurse Practitioner; Visit Provider Nurse Practitioner Family
DX: R94.31 Abnormal electrocardiogram [ECG] [EKG] (principal); I25.118 Atherosclerotic heart disease of native coronary artery with other forms of angina pectoris
CPT/HCPCS: 78452; 93017; 93018; J2785

== ENCOUNTER 2024-05-01 08:39 | Day surgery (SDC) | payer BC, SELFPAY ==
[2024-05-01] VITALS (13 sets, daily range): BP systolic 129–189; BP diastolic 77–108; PULSE 66–80; RESP 16–18; TEMP 36.9; O2SAT 91–98; BMI 27.7
--- NOTE | 2024-05-01 07:13 | IR_ITS ---
APPROVED REPORT Patient Location: Outpatient Channel Sales Manager: RAEGAN Feldman RT (R) PROCEDURES Selective coronary angiogram INDICATION Abnormal Myoview, Known ischemic heart disease, Preoperative evaluation Informed consent was obtained prior to the procedure. COMPLICATIONS NONE Estimated Blood Loss: LESS THAN 10 ML TECHNIQUE One percent lidocaine used to anesthetize the right anterior aspect of the wrist. The right radial artery was accessed via the Seldinger technique. A 6 Swedish sheath was placed in the right radial artery. 2.5 mg of Verapamil, 800 mcg of nitroglycerin, 1mg Lidocaine and 5000 U Heparin were given through the arterial sheath. The 6 Swedish JL 3 guide catheter was used to perform selective coronary angiogram. At the end of the procedure the sheath was removed good hemostasis was achieved using Traclet band, patient was transferred to the postop holding area in stable condition. ANGIOGRAPHIC RESULTS The left main artery Normal The left anterior descending artery Has a proximal eccentric 60% stenosis with mid vessel 70 and 80% stenosis The circumflex artery Is nondominant has a stent in the proximal to mid segment which has concentric 80 to 90% in-stent restenosis The right coronary artery Is dominant proximally occluded and fills via [id number] collaterals The [place] ventriculogram reveals Not performed The left ventricular end-diastolic pressure Not measured IMPRESSION Severe three-vessel coronary disease as described above PLAN 1. Recommend patient be evaluated for coronary bypass surgery at [facility] 2. LDL less than 55 to achieve that high intensity statin 3. Avoidance of tobacco products Electronically signed by : West Dunham MD 05/01/2024 15:24:46
[2024-05-01 09:06] LABS: Basophils # 0.1 K/mm3 (0-0.2); Basophils % 0.6 % (0.1-2.0); Eosinophils # 0.3 K/mm3 (0.0-0.4); Eosinophils % 2.7 % (0.1-12.0); Hematocrit 48.5 % (42.0-52.0); Lymphocytes % 29.7 % (10-50); Mean Corpuscular Hemoglobin 26.5 pg (27.0-31.2); Mean Corpuscular Volume 80.3 fl (80-94); Mean Platelet Volume 9.2 fl (7.4-10.4); Monocytes # 0.7 K/mm3 (0.1-1.0); Monocytes % 7.3 % (1.7-9.3); Neutrophils # 6.1 K/mm3 (1.8-7.8); Neutrophils % 59.5 % (37.0-80.0); Platelet Count 294 K/mm3 (142-424); Red Blood Count 6.04 M/mm3 (4.60-6.20); Red Cell Distribution Width 13.6 % (11.5-17.5); White Blood Count 10.2 K/mm3 (4.8-10.8)
[2024-05-01 09:24] LABS: Chloride 101 mmol/L (98-107); Sodium 137 mmol/L (136-145)
[2024-05-01 09:27] LABS: Blood Urea Nitrogen 12 mg/dl (9-20); Carbon Dioxide 30 mmol/L (22.0-30.0); Creatinine Clearance Estimated 107 mL/min (50-200); Estimated Glomerular Filt Rate 76 ml/min (>60); GFR (African American) 93 ML/MIN (>60)
[2024-05-01 09:28] LABS: Calcium 9.5 mg/dl (8.4-10.2); Glucose 156 mg/dl (74-100)
[2024-05-01] MEDS: LIDOCAINE 1% 10ML MDV 20 ML IJ (10:35)
[2024-05-01] MEDS: HEPARIN 1,000 UNITS/ML 10ML VIAL (CATH LAB) 10000 UNIT IV (10:36)
[2024-05-01] MEDS: VERAPAMIL 2.5MG/ML 2ML VIAL 2.5 MG IV (10:36)
[2024-05-01] MEDS: diphenhydrAMINE 50MG/ML VIAL 50 MG IV (10:36)
[2024-05-01] MEDS: HEPARIN 1,000 UNITS/500ML NS (CATH LAB) 3000 UNIT IV (10:37)
[2024-05-01] MEDS: 0.9 % SODIUM CHLORIDE 500 ML 25 ML IV (10:37)
[2024-05-01] MEDS: NITROGLYCERIN 800MCG/8ML SYR (CATH LAB) 800 MCG IA (10:38)
[2024-05-01] MEDS: FENTANYL 100MCG/2ML VIAL 50 MCG IV (11:29)
[2024-05-01] MEDS: MIDAZOLAM HCL 1MG/ML 5ML VIAL 1 MG IV (11:29)
[2024-05-01] MEDS: IOPAMIDOL-370 (76%);100ML BOTTLE 50 ML IV (13:46)
== END 2024-05-01 15:11 | disposition home or self-care (01) ==
LOC: CATHLAB 08:40
PROVIDERS: PCP Nurse Practitioner; Visit Provider Internal Medicine
DX: I25.118 Atherosclerotic heart disease of native coronary artery with other forms of angina pectoris (principal); I10 Essential (primary) hypertension; E78.5 Hyperlipidemia, unspecified; E11.9 Type 2 diabetes mellitus without complications; E55.9 Vitamin D deficiency, unspecified; J44.9 Chronic obstructive pulmonary disease, unspecified; F17.210 Nicotine dependence, cigarettes, uncomplicated; Z79.85 Long-term (current) use of injectable non-insulin antidiabetic drugs; Z79.84 Long term (current) use of oral hypoglycemic drugs; R06.02 Shortness of breath; Z79.899 Other long term (current) drug therapy
CPT/HCPCS: 80048; 85025; 93454; 99152; C1725; C1760; C1769; J1200; J1644; J3010; Q9967

== ENCOUNTER 2024-07-09 12:51 | Outpatient (RCR) | payer BC, SELFPAY | END 2024-08-08 11:00 | disposition home or self-care (01) | LOC: CR 12:51 | PROVIDERS: Visit Provider Thoracic Surgery (Cardiothoracic Vascular Surgery) | DX: Z48.812 Encounter for surgical aftercare following surgery on the circulatory system (principal); Z95.1 Presence of aortocoronary bypass graft | CPT/HCPCS: 93798 ==

== ENCOUNTER 2024-08-08 09:02 | Outpatient (CLI) | payer BC, SELFPAY ==
--- OUTSIDE RECORDS SUMMARY | 2024-06-13 14:40 | XMS_ITS | Encounter Summary ---
Author Organization [facility] Address [address] 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 (CMS/HCC) Eloise Jaramillo PA [address] [address] Phone: tel: fax: Referral ID Status Reason Start Date Expiration Date V isits Requested Visits Authorized [id number] Authorized 06/13/2024 12/13/2025 1 1 Reason for Visit * Reason Comments Diabetes * Consultation (Routine) - Closed Specialty Diagnoses / Procedures Referred By Contac t Referred To Contact Endocrinology Diagnoses Type 2 diabetes mellitus with hyperglycemia, unspecified whether skilled nursing insulin use (CMS/HCC) Jennifer Rhodes, [facility] [address] [address] Phone: tel: fax: [facility] [address] [place] [address] Phone: tel: fax: Referral ID Status Reason Start Date Expiration Date V isits Requested Visits Authorized [id number] Closed Specialty Services Required 05/30/2024 11/29/2025 1 1 Encounter Details Date Type Department Care Team (Late st Contact Info) Description 06/13/2024 2:40 PM EDT Office Visit [facility] [address] [place] [address] Eloise Jaramillo PA [address] [place] [address] Type 2 diabetes mellitus with hyperglycemia, with long-term current use of insulin (CMS/HCC) (Primary Dx); Type 2 diabetes mellitus with hyperglycemia, unspecified whether skilled nursing insulin use (CMS/HCC) Social History Tobacco Use Types Packs/Day Years Used Date Smoking Tobacco: Former Cigarettes Q uit: 1996 Passive Smoke Exposure: Past Smokeless Tobacco: Never Comments:1 ppd since 13 yo Passive Exposure Comments:Patient trying to quit. Down to 1/2 ppd Alcohol Use Standard Drinks/Week Comments Not Asked 0 (1 standard drink = 0.6 oz pur e alcohol) rare Humiliation, Afraid, Rape, and Kick questionnair e Answer Date Recorded Within the last year, have y ou been afraid of your partner or ex-partner? No 05/23/2024 Within the last year, have y ou been humiliated or emotionally abused in other ways by your partner or ex-partner? No Within the last year, have y ou been kicked, hit, slapped, or otherwise physically hurt by your partner or ex-partner? No 05/23/2024 Within the last year, have y ou been raped or forced to have any kind of sexual activity by your partner or ex-partner? No 05/23/2024 Hunger Vital Sign Answer Date Recorded Within the past 12 months, y ou worried that your food would run out before you got the money to buy more. Never true 05/24/19 25 Within the past 12 months, t he food you bought just didn't last and you didn't have money to get more. Never true 05/23/2024 PRAPARE - Transportation Answer Date Re corded In the past 12 months, has l ack of transportation kept you from medical appointments or from getting medications? No 05/14 In the past 12 months, has l ack of transportation kept you from meetings, work, or from getting things needed for daily living? No 05/23/2024 Housing Stability Vital Sign Answer Sebastien e Recorded In the last 12 months, was t here a time when you were not able to pay the mortgage or rent on time? No 05/23/2024 Number of Times Moved in the Last Year Not on fi le 05/23/2024 At any time in the past 12 m [facility], were you homeless or living in a custodial (including now)? No 05/23/2024 Utilities Answer Date Recorded In the past 12 months has th e [employer], gas, oil, or water company threatened to shut off services in your home? No 05/23/2024 Sex and Gender Information Value Date Recorded Sex Assigned at Not on file Legal Sex Male 1:17 PM EDT Gender Identity Not on file Sexual Orientation Not on file documented as of this encounter Last Filed Vital Signs Vital Sign Reading Time Taken Comments Blood Pressure 108/72 06/13/2024 2:24 PM EDT Pulse 71 06/13/2024 2:24 PM EDT Temperature - - Respiratory Rate - - Oxygen Saturation - - Inhaled Oxygen Concentration - - Weight 94 kg (207 lb 3.7 oz) 06/13/2024 2:24 PM EDT Height 185.4 cm (6' 1 ) 06/13/2024 2:24 PM EDT Body Mass Index 27.34 06/13/2024 2:24 PM EDT documented in this encounter Miscellaneous Notes * Patient Instructions - lEoise Jaramillo PA - 06/13/2024 2:40 PM EDT -Restart ozempic at 0.5 mg weekly for at least 4 weeks to get your body used to this again. Then you can increase to 1 mg (using home supply) but will also need to let us know to send you a new prescription for this dose. Watch your blood glucose with restarting as will likely need to reduce your insulin doses, but continue doses for now. -Please call the diabetes education team with any questions or concerns [phone] Goal is for A1C to be 7% or less, which corresponds to an average blood glucose of 150 OR 70% or greater Time in Range. * Progress Notes - Eloise Jaramillo PA - 06/13/2024 1:40 PM EDT Inés Duran is a 58 y.o. male who presents for a consult of Diabetes Mellitis Type 2 at the request of Jennifer Rhodes APRN. Current symptoms/problems include hyperglycemia. Past medical history includes HTN, HLD, COPD, CAD, PCI with stent to LAD, GERD, CAROLYN HPI Recent JOHNSON. Per cardiology note, underwent CABG x4 with Dr Kishan St. Operative course was non-complicated. Following the procedure, patient was taken to the CVICU where CCM was consulted for ongoing critical care management. Endocrinology consulted for glycemic management. Post-operative course was complicated by A-fib w/ RVR requiring Amiodarone bolus and load. -review of inpatient endocrinology and discharge note indicates can at reassess restarting Ozempic 1 mg weekly outpatient, appears cost was concern and had not injected in 3 weeks prior to JOHNSON. Home diabetes regimen included jardiance 25 mg once daily, Metformin 1000 mg twice daily, glimepiride 2 mgtwice daily. A1c: 7.6% on 05/09/2024 Last labs: CMP- 04/2024; TFT, fasting lipid panel not up to date Current treatment includes oral agents and intensive insulin injection program -Glargine 32 units every night, inconsistent timing when using AM. Required 40 units once daily during JOHNSON. -Lispro 12 units before meals plus CF 1:50 during JOHNSON. Admits forgetting to take out with him but only occurred 2-3 times overall since discharge. -Jardiance 25 mg once daily -Metformin 1000 mg twice daily -Holding glimepiride as instructed. Compliance at present is estimated to be good. Known diabetic complications: cardiovascular disease Cardiovascular risk factors: advanced age (older than 55 for men, 65 for women), diabetes mellitus,dyslipidemia, male gender, and smoking/ tobacco exposure Has stopped smoking. On LULA or ARB: Yes On Statin: Yes Current diet: in general, a healthy diet and on average, 3 meals per day. He she has made significant diet changes including reducing concentrated sugars and increasing vegetable/fruit intake. Drinking diet soda, previously drinking 1-2 packs of regular soda per week. Current exercise: no regular exercise Home blood sugar records: CGM data review: Dexcom Dates: 05/31-06/13 Data: AV GMI 8.8% Time in Range: 18%, high 47%, very high 35%, low 0%, very low 0% Interpretation: widespread hyperglycemia on average. Date of Last Eye Exam: 03/2024 Date of Last Foot Exam: 09/2023 When was your last flu shot?: doesn't get inj When did you have labs last?: 05/2024 The following portions of the chart were reviewed this encounter and updated as appropriate: Tobacco Allergies Meds Problems Med Hx Surg Hx Fam Hx Review of Systems Constitutional: Negative. HENT: Negative. Eyes: Negative. Respiratory: Negative. Cardiovascular: Negative. Gastrointestinal: Negative. Endocrine: See HPI Genitourinary: Negative. Musculoskeletal: Negative. Skin: Positive for wound (2/2 CABG, no concerns today, admits itching otherwise no complaints.). Neurological: Negative. Psychiatric/Behavioral: Negative. Objective Physical Exam Vitals reviewed. Constitutional: General: He is not in acute distress. Appearance: Normal appearance. He is not ill-appearing. HENT: Head: Normocephalic. Nose: Nose normal. Cardiovascular: Rate and Rhythm: Normal rate. Pulmonary: Effort: Pulmonary effort is normal. Musculoskeletal: General: Normal range of motion. Cervical back: Normal range of motion. Skin: General: Skin is warm and dry. Neurological: Mental Status: He is alert and oriented to person, place, and time. Psychiatric: Mood and Affect: Mood normal. Behavior: Behavior normal. Thought Content: Thought content normal. Judgment: Judgment normal. Lab Review Glucose, Plasma (mg/dL) Date Value 05/30/2024 223 (H) 05/29/2024 236 (H) 05/27/2024 279 (H) Hemoglobin A1c (%) Date Value 05/09/2024 7.6 (H) CO2, Plasma (mmol/L) Date Value 05/30/2024 27 05/29/2024 28 05/27/2024 29 BUN, Plasma (mg/dL) Date Value 05/30/2024 11 05/29/2024 9 05/27/2024 14 Creatinine, Plasma (mg/dL) Date Value 05/30/2024 0.89 05/29/2024 0.79 05/27/2024 0.73 Assessment/Plan Diabetes Mellitis Type 2, is uncontrolled. Prescription changes: Increase Lantus approximately 10% to 36 units every night due to widespread hyperglycemia, reviewed data and titration with the patient and today. Restarting Ozempic at 0.5mg weekly as he has been off medication for greater than 4 weeks and notes this was his initial starting dose; we did discuss in event of side effects could reduce to 0.25 mg weekly for 4 weeks, reviewed titration up to prior dose 1 mg weekly, the patient to use home supply of 1 mg weekly and [facility] when refills required. -continue current lispro dosing, jardiance 25 mg once daily, Metformin 1000 mg twice daily, refilled. We discussed renal and CV benefits of GLP1 and SGLT2i classes. -Continue using CGM to test BG 3+ times daily to adjust insulin doses for MDI, G7 refilled. -discussed blood glucose and A1C goals for continued management. -Provided patient above recommendations in writing via AVS for home reference and review -Patient educated at length on complications related to uncontrolled diabetes. Elevated HgA1C levels impact all body systems with increased risk for worsening of conditions including renal function, heart disease, eye disease, neuropathy, foot ulcerations, lower extremity amputation, gastroparesis,and overall increased risk for mortality. Educated on need for consistency with medications/insulindosing for optimal glycemic control and in order to appropriately adjust doses. -encouraged the patient to continue reduced sweets and healthy diabetes diet. -Routine care up to date -follow up 3 months with a1c The following Diabetes education was reviewed: []SBGM to evaluate dose needs []Insulin coverage with carbohydrate intake []Site rotation [] Exercise impact on glucose levels []Driving safety related to diabetes []Sick day management []Ketone testing []Over treatment of hypoglycemia [] Hypoglycemia management []Call-in line use []Insulin pump pros and cons []Sensor home use []Pump class offerings []Elizabeth phenomena []Somogyi effect [] Alcohol related to diabetes []Benefits of written records []Pre-meal Bolusing []Daily foot care [] Healthy diet and regular exercise []Long-term complications related to poor diabetes management [] Injection timing related to changes in activity/exercise -Time spent with patient does not include time spent reviewing CGM. I personally spent a total of 45 minutes on this encounter. This time includes face to face with patient, counseling and discussion and/or coordination of care. Electronically signed by: ANILA Jeronimo [facility] [address] [place] [address]. [phone] PHONE [phone] FAX: [phone] documented in this encounter Plan of Treatment Upcoming Encounters Date Type Department Care Team (Late st Contact Info) Description 09/20/2024 12:20 PM EDT [facility] [place] [address] Eloise Jaramillo PA [address] [place] [address] Scheduled Referrals Name Type Priority Associated Diagnoses Orde r Schedule Follow Up [facility] Outpatient Referral Routine Type 2 diabetes mellitus with hyperglycemia, with long-term current use of insulin (CMS/[facility]) Expected: 09/13/2024, Expires: 07/14/2025 documented as of this encounter Visit Diagnoses Diagnosis Type 2 diabetes mellitus with hyperglycemia, unspecified whether skilled nursing insulin use (CMS/HCC) documented in this encounter Additional Health Concerns Assessment Noted Time A fall risk assessment has been complete d for the patient 05/09/2024 9:53 AM EDT A Body Mass Index follow-up plan has been documented for the patient 06/13/2024 3:02 PM EDT documented as of this encounter Care Teams Talent Acquisition Project Manager Relationship Specialty Start Date End Date Lennie Troy APRN [facility] [place] [address] PCP - General 05/03/24 documented as of this encounter
--- OUTSIDE RECORDS SUMMARY | 2024-06-20 14:13 | XMS_ITS | Encounter Summary ---
Author Organization Healthcare Address [address] [place] [address] Care Team Providers Care Fiber Design Engineer Name Role Phone WoodrowLennie bae Néstor QUINTERO Primary Care Provider [phone] Encounter Details Date Type Department Care Team (Latest Contact Info) Description 06/20/2024 2:13 PM EDT - 06/20/2024 11:59 PM EDT Hospital Encounter [facility] [address], [address] [place] [phone] Coronary artery disease involving [place] coronary artery of [place] heart without angina pectoris Discharge Disposition: Home or Self Care Social History Tobacco Use Types Packs/Day Years [...] any time in the past 12 m [facility], were you homeless or living in a fci (including now)? No 05/23/2024 Utilities Answer Date Recorded In the past 12 months has th e [employer], gas, oil, or water [employer] threatened to shut off services in your home? No 05/23/2024 Sex and Gender Information Value Date Recorded Sex Assigned at Not on file Legal Sex Male 1:17 PM EDT Gender Identity Not on file Sexual Orientation Not on file documented as of this encounter Medications at Time of Discharge acetaminophen (Tylenol) 325 MG tablet Take 2 tablets by mouth every 6 hours as needed for pain, headaches or fever. 100 tablet 05/30/2024 albuterol 108 (90 Base) MCG/ACT inhaler Inhale 2 puffs in the morning and 2 puffs at noon and 2 puffs in the evening and 2 puffs before bedtime. amiodarone (Pacerone) 200 MG tablet Take 2 tablets by mouth 2 (two) times a day for 1 day, THEN 1 tablet daily. 34 tablet 05/30/2024 amLODIPine-benaze pril (Lotrel) 10-20 MG capsule Take 1 capsule by mouth daily. 30 capsule 3 05/30/2024 apixaban (Eliquis) 5 MG tablet Take 1 tablet by mouth 2 (two) times a day. 60 tablet 05/30/2024 aspirin 81 MG EC tablet Take 1 tablet by mouth daily. 30 tablet 3 05/30/2024 [employer] Home miscIndications:T ype 2 diabetes mellitus with hyperglycemia, with long-term current use of insulin (CMS/[facility]) Use to dispose of insulin pen needles up to 4x daily. 1 each 06/13/2024 budesonide-formot ester (Symbicort) 80-4.5 MCG/ACT inhaler Inhale 2 puffs 2 (two) times a day. Rinse mouth with water after use to reduce aftertaste and incidence of candidiasis. Do not swallow. 6.9 g 1 05/30/2024 cetirizine (ZyrTEC) 10 MG tablet Take 1 tablet by mouth daily. cholecalciferol (Vitamin D-3) 5,000 Units tablet Take 1 tablet by mouth 3 (three) times a week. Continuous Glucose Sensor (CEL-SCI G7 Sensor) miscIndications:T ype 2 diabetes mellitus with hyperglycemia, with long-term current use of insulin (CMS/[facility]) Change every 10 days. 200 each 11 06/13/2024 docusate sodium 100 MG capsule Take 200 mg by mouth 2 (two) times a day as needed for constipation. 20 capsule 05/30/2024 empagliflozin (Jardiance) 25 MGIndications:Typ e 2 diabetes mellitus with hyperglycemia, with long-term current use of insulin (CMS/[facility]) Take 1 tablet by mouth daily. 90 tablet 1 06/13/2024 furosemide (Lasix) 40 MG tablet Take 1 tablet by mouth daily. 7 tablet 05/31/2024 insulin glargine (Lantus SoloStar) 100 UNIT/ML injection penIndications:Ty pe 2 diabetes mellitus with hyperglycemia, with long-term current use of insulin (CMS/[facility]) Inject 36 Units under the skin nightly. 15 mL 4 06/13/2024 5 insulin lispro 100 UNIT/ML injection penIndications:Ty pe 2 diabetes mellitus with hyperglycemia, with long-term current use of insulin (CMS/[facility]) Inject 10 Units under the skin 3 times a day with meals. Add a correction scale dose as follows: blood sugar 150-199 use 1 unit, 200-249 use 2 units, 250-299 use 3 units, 300-349 use 4 units, 350-399 use 5 units, >399 use 6 units and call provider. 15 mL 3 06/13/2024 lansoprazole (Prevacid) [address] capsule Take 1 capsule by mouth daily before breakfast. Do not crush or chew. methocarbamol (Robaxin) 500 MG tablet Take 2 tablets by mouth 4 (four) times a day. 40 tablet 05/30/2024 metoprolol tartrate (Lopressor) 100 MG tablet Take 1 tablet by mouth every 8 hours. 90 tablet 3 05/30/2024 naloxone (Narcan) 4 mg/0.1 mL nasal spray 1. Give 1 spray in nostril for no/slow breathing or cannot wake after opioid use 2. Call 911 3. Repeat in other nostril if symptoms continue 1 each 05/30/2024 pen needle, diabetic 31G X 5 MM miscIndications:T ype 2 diabetes mellitus with hyperglycemia, with long-term current use of insulin ([facility]) Use as directed with insulin pen. 100 each 11 06/13/2024 rosuvastatin (Crestor) 10 MG tablet Take 1 tablet by mouth daily. Semaglutide,0.25 or 0.5MG/DOS, (Ozempic, 0.25 or 0.5 MG/DOSE,) 2 MG/3ML solution pen-injectorIndic ations:Type 2 Diabetes Mellitus Inject 0.5 mg under the skin 1 time per week. Can titrate to 1 mg weekly after 4 weeks. 3 mL 5 06/13/2024 Tiotropium Sterling Monohydrate (Spiriva Respimat) 2.5 MCG/ACT inhaler Inhale 2 puffs daily. 4 g 1 05/31/2024 Varenicline Tartrate, Starter, 0.5 MG X 11 & 1 MG X 42 tablet therapy pack Take 1 tablet by mouth in the morning and 1 tablet before bedtime. 05/08/2024 metFORMIN (Glucophage) 500 MG tabletIndications :Type 2 diabetes mellitus with hyperglycemia, with long-term current use of insulin ([facility]) Take 2 tablets by mouth 2 times a day with meals. 60 tablet 3 06/13/2024 5 documented as of this encounter Plan of Treatment Upcoming Encounters Date Type Department Care Team (Late st Contact Info) Description 09/20/2024 12:20 PM EDT Office Visit [facility] Endocrinology [address] [place] [phone] Eloise Jaramillo PA [address] [place] [address] documented as of this encounter Procedures Procedure Name Priority Date/Time Associated Diagnosis Comments XR CHEST 2 VIEWS Routine 06/20/2024 2:25 PM EDT Coronary artery disease involving [place] coronary artery of [place] heart without angina pectoris documented in this encounter Results * XR Chest 2 Views (06/20/2024 2:25 PM EDT) Anatomical Region Laterality Modality Chest Digital Radiogra phy Impressions 06/20/2024 2:55 PM EDT Unremarkable postoperative appearance of the chest. CRITICAL RESULT: No. COMMUNICATION: Per this written report. Drafted by Kishan Ortega MD on 06/20/2024 2:54 PM Final report signed by Kishan Ortega MD on 06/20/2024 2:55 PM Narrative 06/20/2024 2:55 PM EDT CLINICAL INDICATION: cad TECHNIQUE: XR CHEST 2 VIEWS COMPARISON: May 30, 2024 FINDINGS: Linear scarring or atelectasis in the left lung. Previously noted perihilar opacities have resolved. Pleural effusions have resolved. No pulmonary edema. No pneumothorax. Procedure Note Kishan Ortega MD - 06/20/2024 CLINICAL INDICATION: cad TECHNIQUE: XR CHEST 2 VIEWS COMPARISON: May 30, 2024 FINDINGS: Linear scarring or atelectasis in the left lung. Previously notedperihilar opacities have resolved. Pleural effusions have resolved. Nopulmonary edema. No pneumothorax. IMPRESSION: Unremarkable postoperative appearance of the chest. CRITICAL RESULT: No. COMMUNICATION: Per this written report. Drafted by Kishan Ortega MD on 06/20/2024 2:54 PM Final report signed by Kishan Ortega MD on 06/20/2024 2:[address] MD IMG XR PROCEDURES Final Resu lt documented in this encounter Visit Diagnoses Diagnosis Coronary artery disease involving [place] coronary artery of [place] heart without angina pectoris documented in this encounter Additional Health Concerns Assessment Noted Time A fall risk assessment has been complete d for the patient 06/20/2024 2:47 PM EDT A Body Mass Index follow-up plan has been documented for the patient 06/29/2024 9:37 AM EDT documented as of this encounter Care Teams Fiber Design Engineer Relationship Specialty Start Date End Date Lennie Troy APRN [address] [place] [address] PCP - General 05/03/24 documented as of this encounter
--- OUTSIDE RECORDS SUMMARY | 2024-06-20 14:40 | XMS_ITS | Encounter Summary ---
Author Organization Healthcare Address [address] [place] [address] Care Team Providers Care Marketing Project Coordinator Name Role Phone Woodrow Lennie Palm APRN Primary Care Provider [phone] Encounter Details Date Type Department Care Team (Late st Contact Info) Description 06/20/2024 2:40 PM EDT Office Visit [facility] [address], [address] [place] [address] MD [address] [place] [address] Coronary artery disease involving [place] coronary artery of [place] heart without angina pectoris (Primary Dx) Social History Tobacco Use Types Packs/Day Years [...] any time in the past 12 m [facility], were you homeless or living in a correction (including now)? No 05/23/2024 Utilities Answer Date Recorded In the past 12 months has th e electric, gas, oil, or water company threatened to shut off services in your home? No 05/23/2024 Sex and Gender Information Value Date Recorded Sex Assigned at Not on file Legal Sex Male 1:17 PM EDT Gender Identity Not on file Sexual Orientation Not on file documented as of this encounter Last Filed Vital Signs Vital Sign Reading Time Taken Comments Blood Pressure 135/77 06/20/2024 2:40 PM EDT Pulse 69 06/20/2024 2:40 PM EDT Temperature - - Respiratory Rate - - Oxygen Saturation 97% 06/20/2024 2:40 PM EDT Inhaled Oxygen Concentration - - Weight 93.9 kg (207 lb 0.2 oz) 06/20/2024 2:40 P M EDT Height - - Body Mass Index 27.31 06/13/2024 2:24 PM EDT documented in this encounter Miscellaneous Notes * Progress Notes - Yonathan Smith MD - 06/20/2024 2:40 PM EDT CARDIAC SURGERY CLINIC Reason for visit / Chief Complaint: Postoperative Followup History of present illness: Vijay Duran is a 58 y.o. male that returns to clinic following Coronary Artery Bypass Grafting x4(ESQUIVEL-LAD, RSV-OM1-OM2, RSV-PDA) on 05/22/24. Operative course was uncomplicated. Postoperative course notable for atrial fibrillation with RVR that resolved with medical therapy. Discharged home on amiodarone and Eliquis. Has been doing well at home. Pain controlled. Ambulating daily. Has follow up w steven Dunham on Monday, will contact PCP, and awaiting Cardiac Rehab scheduling. Active Problems: Patient Active Problem List Diagnosis Date Noted Atrial fibrillation with rapid ventricular response ([facility]) 05/24/2024 Volume overload 05/23/2024 S/P CABG x 4 05/22/2024 Post-op pain 05/22/2024 Acute blood loss anemia 05/22/2024 ADD (attention deficit disorder) 05/09/2024 GERD (gastroesophageal reflux disease) 05/09/2024 HTN (hypertension) 05/09/2024 COPD (chronic obstructive pulmonary disease) ([facility]) 05/09/2024 Vitamin D deficiency 05/09/2024 Type 2 diabetes mellitus 05/09/2024 Hyperlipidemia with target LDL less than 100 08/15/2012 CAD (coronary artery disease) 05/03/2011 Sleep apnea 11/09/2009 Medical History: Past Medical History: Diagnosis Date Cancer ([facility]) July 2021 Polyps removed from colon COPD (chronic obstructive pulmonary disease) ([facility]) Coronary artery disease Diabetes mellitus ([facility]) GERD (gastroesophageal reflux disease) Hiatal hernia Hyperlipidemia Hypertension Myocardial infarction ([facility]) On mechanically assisted ventilation ([facility]) 05/22/2024 -Intubated for CABG -Plan for fast track extubation Sleep apnea Surgical History: Surgical History[1] Social History: Tobacco: Tobacco Use: Medium Risk (06/20/2024) Patient History Smoking Tobacco Use: Former Smokeless Tobacco Use: Never Passive Exposure: Past Alcohol: Alcohol Use: Not on file Illicit drug use: Social History Substance and Sexual Activity Drug Use Never Family History: family history includes Cancer in his father; Heart attack in his maternal grandfather; Hypertension in his father and mother; Stroke in his paternal grandfather. Allergies: Allergies[2] Medications: Prior to Admission medications Medication Sig Start Date End Date Taking? Authorizing Provider acetaminophen (Tylenol) 325 MG tablet Take 2 tablets by mouth every 6 hours as needed for pain, headaches or fever. 05/30/24 Yes Elian Courtney PA albuterol 108 (90 Base) MCG/ACT inhaler Inhale 2 puffs in the morning and 2 puffs at noon and 2 puffs in the evening and 2 puffs before bedtime. Yes ProviderDemetrius MD amiodarone (Pacerone) 200 MG tablet Take 2 tablets by mouth 2 (two) times a day for 1 day, THEN 1 tablet daily. 05/30/24 06/30/24 Yes Elian Courtney PA amLODIPine-benazepril (Lotrel) 10-20 MG capsule Take 1 capsule by mouth daily. 05/30/24 Yes Elian Courtney PA apixaban (Eliquis) 5 MG tablet Take 1 tablet by mouth 2 (two) times a day. 05/30/24 Yes Elian Courtney PA aspirin 81 MG EC tablet Take 1 tablet by mouth daily. 05/30/24 Yes Elian Courtney PA [employer] misc Use to dispose of insulin pen needles up to 4x daily. 06/13/24 Yes Eloise Jaramillo PA budesonide-formoterol (Symbicort) 80-4.5 MCG/ACT inhaler Inhale 2 puffs 2 (two) times a day. Rinse mouth with water after use to reduce aftertaste and incidence of candidiasis. Do not swallow. 05/30/24 Yes Elian Courtney PA cetirizine (ZyrTEC) 10 MG tablet Take 1 tablet by mouth daily. Yes ProviderDemetrius MD Continuous Glucose Sensor ([employer] G7 Sensor) misc Change every 10 days. 06/13/24 Yes Eloise Jaramillo PA empagliflozin (Jardiance) 25 MG Take 1 tablet by mouth daily. 06/13/24 12/10/24 Yes Eloise Jaramillo PA insulin glargine (Lantus SoloStar) 100 UNIT/ML injection pen Inject 36 Units under the skin nightly. 06/13/24 12/10/24 Yes Eloise Jaramillo PA insulin lispro 100 UNIT/ML injection pen Inject 10 Units under the skin 3 times a day with meals. Add a correction scale dose as follows: blood sugar 150-199 use 1 unit, 200-249 use 2 units, 250-299 use 3 units, 300-349 use 4 units, 350- 399 use 5 units, >399 use 6 units and call provider. 06/13/24Yes Eloise Jaramillo PA lansoprazole (Prevacid) [address] capsule Take 1 capsule by mouth daily before breakfast. Do not crush or chew. Yes ProviderDemetrius MD metFORMIN (Glucophage) 500 MG tablet Take 2 tablets by mouth 2 times a day with meals. 06/13/24 Yes Eloise Jaramillo PA methocarbamol (Robaxin) 500 MG tablet Take 2 tablets by mouth 4 (four) times a day. Patient taking differently: Take 2 tablets by mouth 4 times a day as needed. 05/30/24 Yes Elian Courtney PA metoprolol tartrate (Lopressor) 100 MG tablet Take 1 tablet by mouth every 8 hours. 05/30/24 Yes Elian Courtney PA pen needle, diabetic 31G X 5 MM misc Use as directed with insulin pen. 06/13/24 Yes Eloise Jaramillo PA rosuvastatin (Crestor) 10 MG tablet Take 1 tablet by mouth daily. Yes ProviderDemetrius MD Semaglutide,0.25 or 0.5MG/DOS, (Ozempic, 0.25 or 0.5 MG/DOSE,) 2 MG/3ML solution pen-injector Inject 0.5 mg under the skin 1 time per week. Can titrate to 1 mg weekly after 4 weeks. 06/13/24 12/10/24 Yes Eloise Jaramillo PA Tiotropium [place] Monohydrate (Spiriva Respimat) 2.5 MCG/ACT inhaler Inhale 2 puffs daily. 05/31/24Yes Elian Courtney PA cholecalciferol (Vitamin D-3) 5,000 Units tablet Take 1 tablet by mouth 3 (three) times a week. Patient not taking: Reported on 06/20/2024 Demetrius Urban MD docusate sodium 100 MG capsule Take 200 mg by mouth 2 (two) times a day as needed for constipation. Patient not taking: Reported on 06/20/2024 05/30/24 Elian Courtney PA furosemide (Lasix) 40 MG tablet Take 1 tablet by mouth daily. Patient not taking: Reported on 06/20/2024 05/31/24 Elian Courtney PA naloxone (Narcan) 4 mg/0.1 mL nasal spray 1. Give 1 spray in nostril for no/slow breathing or cannot wake after opioid use 2. Call 911 3. Repeat in other nostril if symptoms continue 05/30/24 Ruel Nichols APRN potassium chloride CR 10 MEQ PO ER tablet Take 1 tablet by mouth daily for 7 days. Do not crush or chew. Take while taking Lasix Patient not taking: Reported on 06/20/2024 05/30/24 06/13/24 Elian Courtney PA Varenicline Tartrate, Starter, 0.5 MG X 11 & 1 MG X 42 tablet therapy pack Take 1 tablet by mouth in the morning and 1 tablet before bedtime. Patient not taking: Reported on 06/20/2024 05/08/24 ProviderDemetrius MD Physical exam: Visit Vitals BP 135/77 Pulse 69 SpO2 97% Constitutional: well developed, well nourished, and in no acute distress Eye: equal, round, and reactive Ears, Nose, Throat: normal atraumatic, no neck masses Respiratory: Normal expansion. Clear to auscultation. No rales, rhonchi, or wheezing. Cardiac: Heart sounds are normal. Regular rate and rhythm without murmur, gallop or rub. Abdomen: Soft, non-tender, normal bowel sounds; no bruits, organomegaly or masses. Musculoskeletal: normal strength, tone, and muscle mass, no deformities Psychiatric: oriented to time, place and person, mood and affect are within normal limits Neurologic: normal sensation and reflexes and motor intact Skin: [place], warm, well perfused, Incisions well approximated Labs in last 18 hours: CBC WBC 10.02 Hb 12.0 (L) Plt 430 (H) Hct 39.7 (L) ANC ?? INR ??, PTT ??, Anti-Xa ?? BMP Na 135 (L) Cl 99 BUN 16 Glu 146 (H) K 4.2 Co2 25 Cr 1.11 Ca 10.1 iCa ?? Mg ??, Phos ?? Lactate ?? LFT AST ?? AlkPhos ?? T Prot ?? ALK ?? Bili ?? Alb ?? D.Bili ?? Imagin06/20/24 2v CXR: FINDINGS: Linear scarring or atelectasis in the left lung. Previously noted perihilar opacities have resolved. Pleural effusions have resolved. No pulmonary edema. No pneumothorax. IMPRESSION: Unremarkable postoperative appearance of the chest. Impression: Kelton Duran is a 58 y.o. male status post CABGx4 on 05/22/[address] He is recovering well from Cardiac Surgery. Plan: - Follow up with Dr. Dunham as scheduled - Will defer further management of Eliquis to Dr. Dunham, jasper to discontinue after 2-3 months ifin NSR from a surgical perspective - Can discontinue amiodarone once he runs out - PCP follow up and Cardiac Rehab recommended - Ongoing sternal precautions - Return to clinic as needed [1] Past Surgical History: Procedure Laterality Date CARDIAC CATHETERIZATION CHOLECYSTECTOMY COLONOSCOPY W/ POLYPECTOMY CORONARY ARTERY BYPASS GRAFT 05/22/2024 Median sternotomy, coronary artery bypass grafting times 4, endoscopic vein harvest-right lower extremity-greater saphenous. Vein from the ascending aorta to the posterior descending coronary artery Vein from the ascending aorta sequentially to the large OM 1 and small OM2 Left internal mammary artery skeletonized in Situ to the left anterior descending coronary artery.(Maciel) KNEE SURGERY Left ORTHOPEDIC SURGERY Left knee TONSILLECTOMY VASECTOMY [2] No Known Allergies Cosigned by Kishan St MD at 06/29/2024 9:37 AM EDT Associated attestation - Kishan St MD - 06/29/2024 9:37 AM EDT I saw and evaluated the patient with the resident/fellow. I discussed the case with the resident/fellow and agree with the findings and plan as documented. documented in this encounter Plan of Treatment Upcoming Encounters Date Type Department Care Team (Late st Contact Info) Description 09/20/2024 12:20 PM EDT Office Visit [facility] [address] [place] [id number] Eloise Jaramillo PA [address] [facility] [address] [place] [address] Scheduled Orders Name Type Priority Associated Diagnoses Orde r Schedule ECG Adult ECG Routine Coronary artery disease involving [place] coronary artery of [place] heart without angina pectoris Expected: 06/20/2024, Expires: 06/14/2025 documented as of this encounter Results * XR Chest 2 [...] Kishan Ortega MD on 06/20/2024 2:[address] MD IMG XR PROCEDURES Final Resu lt * (ABNORMAL) Basic Metabolic Panel, Plasma (06/20/2024 2:06 PM EDT) Glucose, Plasma 146(H) 74 - 99 mg/dL 06/20/2024 4:21 PM EDT [facility] BUN, Plasma 16 7 - 21 mg/dL 06/20/2024 4:21 PM EDT [facility] Creatinine, Plasma 1.11 0.70 - 1.20 mg/dL 06/20/2024 4:21 PM EDT [facility] BUN/Creatinine Ratio 14 06/20/2024 4:21 PM EDT [facility] Sodium, Plasma 135(L) 136 - 145 mmol/L 06/20/2024 4:21 PM EDT [facility] Potassium, Plasma 4.2 3.6 - 4.9 mmol/L 06/20/2024 4:21 PM EDT [facility] Chloride, Plasma 99 97 - 107 mmol/L 06/20/2024 4:21 PM EDT [facility] CO2, Plasma 25 22 - 29 mmol/L 06/20/2024 4:21 PM EDT [facility] Anion Gap 11 6 - 16 mmol/L 06/20/2024 4:21 PM EDT [facility] Total Calcium, Plasma 10.1 8.9 - 10.2 mg/dL 06/20/2024 4:21 PM EDT [facility] eGFRcr 76.5 mL/min/1.7 3m*2 06/20/2024 4:21 PM EDT [facility] Comment:Reported eGFRcr in m L/min/1.73m2 is based the CKD-EPI 2020 equation that does not use a race coefficient. Blood Venous blood specimen / Unknown Venipuncture / Unknown 06/20/2024 2:06 PM EDT 06/20/2024 2:06 PM EDT us Kishan St MD LAB BLOOD ORDERABLES Final R esult [facility] [address] [place] [address] * (ABNORMAL) CBC W/O Differential (06/20/2024 2:06 PM EDT) WBC Count 10.02 3.70 - 10.30 10*3/uL LAB HEMATOLOGY METHOD 06/20/2024 4:11 PM EDT [facility] RBC Count 4.96 4.60 - 6.10 10*6/uL LAB HEMATOLOGY METHOD 06/20/2024 4:11 PM EDT [facility] HGB 12.0(L) 13.7 - 17.5 g/dL LAB HEMATOLOGY METHOD 06/20/2024 4:11 PM EDT [facility] HCT 39.7(L) 40.0 - 51.0 % LAB HEMATOLOGY METHOD 06/20/2024 4:11 PM EDT [facility] Platelet Count 430(H) 155 - 369 10*3/uL LAB HEMATOLOGY METHOD 06/20/2024 4:11 PM EDT [facility] MCV 80 79 - 98 fL LAB HEMATOLOGY METHOD 06/20/2024 4:11 PM EDT [facility] MCH 24.2(L) 26.0 - 32.0 pg LAB HEMATOLOGY METHOD 06/20/2024 4:11 PM EDT [facility] MCHC 30.2(L) 30.7 - 35.5 g/dL LAB HEMATOLOGY METHOD 06/20/2024 4:11 PM EDT [facility] RDW 14.1 11.5 - 14.5 % LAB HEMATOLOGY METHOD 06/20/2024 4:11 PM EDT [facility] MPV 8.9 8.8 - 12.5 fL LAB HEMATOLOGY METHOD 06/20/2024 4:11 PM EDT [facility] nRBC 0.0 <=0.0 per 100 WBCs LAB HEMATOLOGY METHOD 06/20/2024 4:11 PM EDT [facility] Blood Venous blood specimen / Unknown Venipuncture / Unknown 06/20/2024 2:06 PM EDT 06/20/2024 2:06 PM EDT us Kishan St MD LAB BLOOD ORDERABLES Final R esult Performing Organization Address City/State/[facility] Co de Phone Number [facility] [address] [place] [address] documented in this encounter Visit Diagnoses Diagnosis Coronary artery disease involving [place] coronary artery of [place] heart without angina pectoris- Primary Coronary artery disease involving [place] coronary artery of [place] heart without angina pectoris documented in this encounter Additional Health Concerns Assessment Noted Time A fall risk assessment has been complete d for the patient 06/20/2024 2:47 PM EDT A Body Mass Index follow-up plan has been documented for the patient 06/29/2024 9:37 AM EDT documented as of this encounter Care Teams Marketing Project Coordinator Relationship Specialty Start Date End Date Lennie Troy APRN [address] [place] [address] PCP - General 05/03/24 documented as of this encounter
--- OUTSIDE RECORDS SUMMARY | 2024-08-08 09:05 | XMS_ITS | Encounter Summary ---
Author Organization [facility] Address [address] [place] [address] Care Team Providers Care Rail Transportation Tabeler Name Role Phone WoodrowLennie bae INGRID Primary Care Provider [phone] Encounter Details Date Type Department Care Team (Latest Contact Info) Description 06/13/2024 Travel Social History Tobacco Use Types Packs/Day Years [...] any time in the past 12 m [facility], were you homeless or living in a long-term (including now)? No 05/23/2024 Utilities Answer Date [...] on file documented as of this encounter Plan of Treatment Upcoming Encounters Date Type Department Care Team (Late st Contact Info) Description 09/20/2024 12:20 PM EDT Office Visit [facility] [address] [place] [address] Eloise Jaramillo PA [address] [facility] [address] [place] [address] documented as of this encounter Visit Diagnoses Not on filedocumented in this encounter Additional Health Concerns Assessment Noted Time A fall risk assessment has been complete d for the patient 05/09/2024 9:53 AM EDT A Body Mass Index follow-up plan has been documented for the patient 06/13/2024 3:02 PM EDT documented as of this encounter Care Teams Rail Transportation Tabeler Relationship Specialty Start Date End Date Lennie Troy APRN [facility] [place] [address] PCP - General 05/03/24 documented as of this encounter
--- OUTSIDE RECORDS SUMMARY | 2024-08-08 09:05 | XMS_ITS | Clinical Summary ---
Author Organization [facility] Address [address] [place] [address] Phone Care Team Providers Care Chuck Tender Name Role Phone Jaja, Mary Matta Primary Care Provider [phone] Allergies No known active allergies Medications Melatonin 5 mg CapIndications: Insomnia Take 5-10 mg by mouth nightly as needed (insomnia). 60 Cap 5 2 Active Additional Information Patient not taking.Reported on 11/09/2016 GLUCOSAMINE HCL/GLUC BROWNE (GLUCOSAMINE COMPLEX ORAL) Take by mouth 2 times daily. Active ALBUTEROL INHL Inhale into the lungs as needed. Active aspirin 81 mg tablet Take by mouth daily. Active metoprolol (LOPRESSOR) 100 mg tabletIndicatio ns:HTN (hypertension), Migraine Take 1 Tab by mouth 2 times daily. 60 Tab 5 3 Active clopidogrel (PLAVIX) 75 mg tabletIndicatio ns:CAD (coronary artery disease) Take 1 Tab by mouth daily. 30 Tab 5 3 Active hydrOXYzine (VISTARIL) 25 mgIndications:I nsomnia Take 1 Cap by mouth nightly. 30 Cap 5 3 Active Additional Information Patient not taking.Reported on 11/09/2016 topiramate (TOPAMAX) 100 mg tabletIndicatio ns:Migraine Take 1.5 Tabs by mouth nightly. 45 Tab 5 3 Active rosuvastatin (CRESTOR) 40 mg tabletIndicatio ns:Hyperlipidem ia LDL goal < 100,CAD (coronary artery disease) Take 1 Tab by mouth daily. Needs OV And lab work in Dec 30 Tab 5 3 Active amLODIPine (NORVASC) 10 mg tabletIndicatio ns:HTN (hypertension) Take 1 Tab by mouth daily. 30 Tab 5 3 Active Fenofibric Acid 135 mg CpDRIndications :CAD (coronary artery disease),Hyperl ipidemia LDL goal < 100 Take 135 mg by mouth daily. 30 Cap 5 3 Active esomeprazole (NEXIUM) 40 mg capsuleIndicati ons:GERD (gastroesophage al reflux disease) Take 1 Cap by mouth daily. 30 Cap 5 3 Active Additional Information Patient not taking.Reported on 11/09/2016 rizatriptan (MAXALT) 10 mgIndications:M igraine Take 1 Tab by mouth once as needed for 1 dose. May repeat in 2 hours if needed 6 Tab 2 3 Active testosterone (ANDROGEL) 20.25 mg/1.25 gram (1.62 %) GlPmIndications :Hypogonadism male Place 81 mg onto the skin daily. 1 Bottle 2 3 Active Additional Information Patient not taking.Reported on 11/09/2016 dextroamphetami ne-amphetamine (ADDERALL) 30 mg tabletIndicatio ns:ADD (attention deficit disorder) Take 1 Tab by mouth 2 times daily. Needs to start weaning down on these 60 Tab 0 3 Active Additional Information Patient not taking.Reported on 11/09/2016 naproxen (NAPROSYN) 500 mg Oral Tablet Take 1 Tab by mouth every 12 hours. With food 3 days, then as needed 20 Tab 7 Active Active Problems Patient Care Coordination No te Formatting of this note migh t be different from the original. CSTA 10/30/2012 SOAPP 10/30/2012 CONSENT 10/30/2012 HARDY 10/30/2012 Problem Noted Date Diagnosed Date Hyperlipidemia LDL goal < 100 08/15/2012 Hypertriglyceridemia 08/10/2011 CAD (coronary artery disease) 05/03/2011 Sleep apnea 11/09/2009 HTN (hypertension) ADD (attention deficit disorder) MAVIS (generalized anxiety disorder) Insomnia Fluid retention GERD (gastroesophageal reflux disease) Testosterone deficiency Migraine ADD (attention deficit disorder) Resolved Problems Problem Noted Date Diagnosed Date Resolved Date Migraine headache 02/15/2011 11/27/2012 Immunizations Immunization Administration Dates Next Due Tdap 10/25/2010 Surgical History Surgery Date Site/Laterality Comments GALLBLADDER SURGERY 2007 DENTAL SURGERY TONSILLECTOMY KNEE ARTHROSCOPY 04/2010, 06/16/2011 LEFT KNEE ARTHROSCOPY PARTIAL MEDIAL MENISECTOMY, CHONDROPLASTY, MEDIAL FEMORAL CONDYL LEFT KNEE; Surgeon: Aquilino Moon MD; Location: [facility]; Service: Orthopedics CARDIAC SURGERY 2006 STENT KNEE SURGERY 2004 LEFT, for meniscus CHOLECYSTECTOMY KNEE ARTHROSCOPY 09/23/2011 Left LEFT KNEE ARTHROSCOPY DEBRIDEMENT MEDIAL MENISECTOMY AND CHONDROPLASTY ; Surgeon: Teodoro Dockery MD; [facility]; Service: Orthopedics Medical History Medical History Date Comments Allergy GERD (gastroesophageal reflux disease) Asthma slight Hypertension [place] (myocardial infarction) (HCC) 03/2005 Hyperlipidemia Ulcer in past Unspecified sleep apnea cpap Bronchitis CAD (coronary artery disease) 03/[address] x1 Arthritis knee Migraine headache 02/15/2011 Anemia slightly Diaphragmatic hernia without mention of obstruct ion or gangrene Hyperlipidemia LDL goal < 100 08/15/2012 Diabetes mellitus (HCC) Family History Medical History Relation Name Comments Prostate Cancer Father Relation Name Status Comments Father Social History Tobacco Use Types Packs/Day Years Used Date Smoking Tobacco: Every Day Cigarettes 1.5 30 Smokeless Tobacco: Never Tobacco Cessation:Ready to Q uit: No; Counseling Given: Yes Comments:info refused Alcohol Use Standard Drinks/Week Comments No 0 (1 standard drink = 0.6 oz pur e alcohol) Sex and Gender Information Value Date Recorded Sex Assigned at Not on file Legal Sex Male 12:11 AM EDT Gender Identity Not on file Sexual Orientation Not on file Obstetrics History Last Filed Vital Signs Vital Sign Reading Time Taken Comments Blood Pressure 168/95 11/09/2016 8:15 PM EDT Pulse 98 11/09/2016 8:15 PM EDT Temperature 36.7 C (98.1 F) 11/09/2016 8:15 PM EDT Respiratory Rate 20 11/09/2016 8:15 PM EDT Oxygen Saturation 99% 11/09/2016 8:15 PM EDT Inhaled Oxygen Concentration - - Weight 97.5 kg (215 lb) 11/09/2016 8:15 PM EDT Height 185.4 cm (6' 1 ) 11/09/2016 8:15 PM EDT Body Mass Index 28.37 11/09/2016 8:15 PM EDT Plan of Treatment Health Maintenance Due Date Last Done Comments Annual Wellness Exam 12/05/1967 Hepatitis C Screening 1982 Hepatitis B Vaccine (1 of 3 - 19+ 3-dose series) 12/05/1983 Cologuard 2009 Colon Cancer Screening 2009 Colonoscopy 2009 FIT 2009 Sigmoidoscopy 2009 Virtual Colonography 2009 Low Dose Lung Cancer Screening 2014 Pneumococcal Vaccine 50+ (1 of 1 - PCV) 2014 Zoster (1 of 2) 2014 DTaP/TDaP/Td (2 - Td or Tdap) 10/25/2020 10/25/2010 COVID-19 Vaccine ( - 2023-2 5 season) 2023 Influenza Vaccine (Season Ended) 2024 Meningococcal B Vaccine Aged Out No l onger eligible based on patient's age to complete this topic [facility] Care Teams Chuck Tender Relationship Specialty Start Date End Date Mary Wilkinson [address] [place] [address] [address] [place] [id number] PCP - General Family Medicine 03/17/14
--- OUTSIDE RECORDS SUMMARY | 2024-08-08 09:06 | XMS_ITS | Clinical Summary ---
Author Organization [facility] Address [address] [place] [address] Care Team Providers Care Business Attorney Name Role Phone Lennie Troy APRN Primary Care Provider [phone] [place] MD Unavailable [phone] Allergies No known active allergies Medications albuterol 108 (90 Base) MCG/ACT inhaler Inhale 2 puffs in the morning and 2 puffs at noon and 2 puffs in the evening and 2 puffs before bedtime. Active cetirizine (ZyrTEC) 10 MG tablet Take 1 tablet by mouth daily. Active cholecalciferol (Vitamin D-3) 5,000 Units tablet Take 1 tablet by mouth 3 (three) times a week. Active lansoprazole (Prevacid) [address] capsule Take 1 capsule by mouth daily before breakfast. Do not crush or chew. Active rosuvastatin (Crestor) 10 MG tablet Take 1 tablet by mouth daily. Active Varenicline Tartrate, Starter, 0.5 MG X 11 & 1 MG X 42 tablet therapy pack Take 1 tablet by mouth in the morning and 1 tablet before bedtime. 5 Active naloxone (Narcan) 4 mg/0.1 mL nasal spray 1. Give 1 spray in nostril for no/slow breathing or cannot wake after opioid use 2. Call 911 3. Repeat in other nostril if symptoms continue 1 each 5 Active aspirin 81 MG EC tablet Take 1 tablet by mouth daily. 30 tablet 3 5 Active amLODIPine-benaz epril (Lotrel) 10-20 MG capsule Take 1 capsule by mouth daily. 30 capsule 3 5 Active methocarbamol (Robaxin) 500 MG tablet Take 2 tablets by mouth 4 (four) times a day. 40 tablet 5 Active Additional Information Patient taking differently:1,000 mg Oral4 times daily PRN, Reported on 06/20/2024 metoprolol tartrate (Lopressor) 100 MG tablet Take 1 tablet by mouth every 8 hours. 90 tablet 3 5 Active acetaminophen (Tylenol) 325 MG tablet Take 2 tablets by mouth every 6 hours as needed for pain, headaches or fever. 100 tablet 5 Active amiodarone (Pacerone) 200 MG tablet Take 2 tablets by mouth 2 (two) times a day for 1 day, THEN 1 tablet daily. 34 tablet 5 Active apixaban (Eliquis) 5 MG tablet Take 1 tablet by mouth 2 (two) times a day. 60 tablet 5 Active docusate sodium 100 MG capsule Take 200 mg by mouth 2 (two) times a day as needed for constipation. 20 capsule 5 Active Additional Information Patient not taking.Reported on 06/20/2024 furosemide (Lasix) 40 MG tablet Take 1 tablet by mouth daily. 7 tablet 5 Active Additional Information Patient not taking.Reported on 06/20/2024 Tiotropium Tye Monohydrate (Spiriva Respimat) 2.5 MCG/ACT inhaler Inhale 2 puffs daily. 4 g 1 5 Active budesonide-formo terol (Symbicort) 80-4.5 MCG/ACT inhaler Inhale 2 puffs 2 (two) times a day. Rinse mouth with water after use to reduce aftertaste and incidence of candidiasis. Do not swallow. 6.9 g 1 5 Active Semaglutide,0.25 or 0.5MG/DOS, (Ozempic, 0.25 or 0.5 MG/DOSE,) 2 MG/3ML solution pen-injectorIndi cations:Type 2 Diabetes Mellitus Inject 0.5 mg under the skin 1 time per week. Can titrate to 1 mg weekly after 4 weeks. 3 mL 5 5 12/11/19 25 Active empagliflozin (Jardiance) 25 MGIndications:Ty pe 2 diabetes mellitus with hyperglycemia, with long-term current use of insulin ([facility]) Take 1 tablet by mouth daily. 90 tablet 1 5 12/11/19 25 Active insulin glargine (Lantus SoloStar) 100 UNIT/ML injection penIndications:T ype 2 diabetes mellitus with hyperglycemia, with long-term current use of insulin ([facility]) Inject 36 Units under the skin nightly. 15 mL 4 5 12/11/19 25 Active insulin lispro 100 UNIT/ML injection penIndications:T ype 2 diabetes mellitus with hyperglycemia, with long-term current use of insulin ([facility]) Inject 10 Units under the skin 3 times a day with meals. Add a correction scale dose as follows: blood sugar 150-199 use 1 unit, 200-249 use 2 units, 250-299 use 3 units, 300-349 use 4 units, 350-399 use 5 units, >399 use 6 units and call provider. 15 mL 3 5 Active Continuous Glucose Sensor (Dexcom G7 Sensor) miscIndications: Type 2 diabetes mellitus with hyperglycemia, with long-term current use of insulin (CMS/[facility]) Change every 10 days. 200 each 5 Active pen needle, diabetic 31G X 5 MM miscIndications: Type 2 diabetes mellitus with hyperglycemia, with long-term current use of insulin ([facility]) Use as directed with insulin pen. 100 each 5 Active [employer] miscIndications: Type 2 diabetes mellitus with hyperglycemia, with long-term current use of insulin ([facility]) Use to dispose of insulin pen needles up to 4x daily. 1 each 5 Active metFORMIN (Glucophage) 500 MG tabletIndication s:Type 2 diabetes mellitus with hyperglycemia, with long-term current use of insulin ([facility]) TAKE 2 TABLETS BY MOUTH 2 TIMES A DAY WITH MEALS. 360 tablet 1 5 Active Active Problems Problem Noted Date Diagnosed Date Atrial fibrillation with rapid ventricular respo nse 05/24/2024 Volume overload 05/23/2024 S/P CABG x 4 05/22/2024 Post-op pain 05/22/2024 Acute blood loss anemia 05/22/2024 ADD (attention deficit disorder) 05/09/2024 GERD (gastroesophageal reflux disease) HTN (hypertension) 05/09/2024 COPD (chronic obstructive pulmonary disease) Vitamin D deficiency 05/09/2024 Type 2 diabetes mellitus 05/09/2024 Hyperlipidemia with target LDL less than 100 04/2012 CAD (coronary artery disease) 05/03/2011 Sleep apnea 11/09/2009 Resolved Problems Problem Noted Date Diagnosed Date Resolved Date On supplemental oxygen by nasal cannula 05/23/2024 05/27/2024 NSTEMI (non-ST elevated myoc ardial infarction) 05/22/2024 05/27/2024 On mechanically assisted ventilation 05/22/2024 05/23/2024 Overview (05/22/2024): -Intubated for CABG -Plan for fast track extubation Electrolyte abnormality 05/22/202405/14 Leukocytosis 05/22/2024 05/28/2024 Encounters Date Type Department Care Team Description 07/04/2024 Refill [facility] Endocrinology [address] [place] [address] Eloise Jaramillo PA Type 2 diabetes mellitus with hyperglycemia, with long-term current use of insulin ([facility]) 06/20/2024 2:40 PM EDT Office Visit [facility] Cardiothoracic [address], [address] [place] [id number] MD Coronary artery disease involving grayling coronary artery of grayling heart without angina pectoris (Primary Dx) 06/20/2024 2:13 PM EDT - 06/20/2024 11:59 PM EDT Hospital Encounter [facility] Radiology [address], [address] [place] [address] Coronary artery disease involving grayling coronary artery of grayling heart without angina pectoris Discharge Disposition: Home or Self Care 06/20/2024 Travel 06/13/2024 2:40 PM EDT [facility] [address] [place] [address] Eloise Jaramillo PA Type 2 diabetes mellitus with hyperglycemia, with long-term current use of insulin ([facility]) (Primary Dx); Type 2 diabetes mellitus with hyperglycemia, unspecified whether halfway insulin use ([facility]) 06/13/2024 Travel 06/08/2024 Travel 05/31/2024 Telephone [facility] [address] [place] [address] Yani Dolan 05/30/2024 Travel 05/29/2024 Travel 05/27/2024 Travel 05/26/2024 Travel 05/25/2024 Travel 05/24/2024 Travel 05/23/2024 Travel 05/22/2024 8:46 AM EDT Anesthesia Event [facility] [address] [place] [phone] Lynne Chan MD Fairchild, Rebeckah J, MD 05/22/2024 8:45 AM EDT - 05/22/2024 5:25 PM EDT Surgery [facility] [address] [place] [phone] MD CABG, 2 OR MORE VESSELS [95052 (CPT )] 05/22/2024 5:24 AM EDT - 05/30/2024 2:37 PM EDT Hospital Encounter [facility] [address] [place] [address] MD Type 2 diabetes mellitus with hyperglycemia, unspecified whether halfway insulin use ([facility]) (Primary Dx); Electrolyte abnormality; Post-op pain; On mechanically assisted ventilation ([facility]); NSTEMI (non-ST elevated myocardial infarction) ([facility]); S/P CABG x 4; Coronary artery disease involving grayling coronary artery of grayling heart without angina pectoris; Type 2 diabetes mellitus with other specified complication, without long-term current use of insulin ([facility]); Chronic obstructive pulmonary disease, unspecified COPD type ([facility]); Hyperlipidemia with target LDL less than 100; Primary hypertension; Gastroesophageal reflux disease without esophagitis; Coronary artery disease of grayling artery of grayling heart with stable angina pectoris ([facility]); On supplemental oxygen by nasal cannula; Cardiac volume overload; Anemia, unspecified type; Leukocytosis, unspecified type; Type 2 diabetes mellitus with other specified complication, with long-term current use of insulin ([facility]); Atrial fibrillation with rapid ventricular response ([facility]); Coronary artery disease involving grayling heart, unspecified vessel or lesion type, unspecified whether angina present Discharge Disposition: Home or Self Care 05/22/2024 Travel 05/21/2024 Travel 05/15/2024 8:30 AM EDT Pre-Admission Testing [facility] Pre-op Clinic [address] [place] [address] 05/15/2024 Travel 05/09/2024 12:03 PM EDT - 05/09/2024 11:59 PM EDT Hospital Encounter [facility] Radiology [address], [address] [place] [address] Coronary artery disease involving grayling coronary artery of grayling heart without angina pectoris Discharge Disposition: Home or Self Care 05/09/2024 9:00 AM EDT Consult [facility] Cardiothoracic [address], [address] [place] [address] MD Coronary artery disease involving grayling coronary artery of grayling heart without angina pectoris (Primary Dx); Tobacco abuse; Primary hypertension 05/09/2024 Orders Only [facility] Cardiothoracic [address], [address] [place] [address] MD Coronary artery disease involving grayling coronary artery of grayling heart without angina pectoris (Primary Dx) 05/09/2024 Travel from Last 3 Months Immunizations Immunization Administration Dates Next Due Tdap 10/25/2010 Family History Medical History Relation Name Comments Cancer Father Hypertension Father Heart attack Maternal Grandfather Hypertension Mother Stroke Paternal Grandfather Anesthesia problems Neg Hx Malig Hyperthermia Neg Hx Relation Name Status Comments Father Maternal Grandfather Mother Paternal Grandfather Social History Tobacco Use Types Packs/Day Years [...] any time in the past 12 m [facility], were you homeless or living in a skilled nursing (including now)? No 05/23/2024 Utilities Answer Date Recorded In the past 12 months has th e [employer], gas, oil, or water company threatened to shut off services in your home? No 05/23/2024 Sex and Gender Information Value Date Recorded Sex Assigned at Not on file Legal Sex Male 1:17 PM EDT Gender Identity Not on file Sexual Orientation Not on file Last Filed Vital Signs Vital Sign Reading Time Taken Comments Blood Pressure 135/77 06/20/2024 2:40 PM EDT Pulse 69 06/20/2024 2:40 PM EDT Temperature 36.5 C (97.7 F) 05/30/2024 11:15 AM EDT Respiratory Rate 18 05/30/2024 11:15 AM EDT Oxygen Saturation 97% 06/20/2024 2:40 PM EDT Inhaled Oxygen Concentration - - Weight 93.9 kg (207 lb 0.2 oz) 06/20/2024 2:40 P M EDT Height 185.4 cm (6' 1 ) 06/13/2024 2:24 PM EDT Body Mass Index 27.31 06/13/2024 2:24 PM EDT Plan of Treatment Upcoming Encounters Date Type Department Care Team (Late st Contact Info) Description 09/20/2024 12:20 PM EDT [facility] [address] [place] [address] Eloise Jaramillo PA [address] [place] [address] Health Maintenance Due Date Last Done Comments [facility]-Depression Screening 1964 [facility]-HIV Screening 1964 [facility]-Hepatitis C Screening 1964 [facility]-/Child/Adol SDOH Screenings 1964 Diabetes: Dental Exam 1974 [facility]-Hepatitis A Vaccines (1 of 2 - Risk 2-dose series) 12/05/1983 [facility]-Hepatitis B Vaccines (1 of 3 - 19+ 3-dose series) 12/05/1983 [facility]-Pneumococcal Vaccine: 50+ Years (1 of 2 - PCV) 12/05/1983 CT Colonography 2009 Colonoscopy 2009 FIT 2009 FOBT 2009 Sigmoidoscopy 2009 [facility]-Zoster Vaccines (1 of 2) 2014 [facility]-DTaP,Tdap,and Td Vaccines (2 - Td or Tdap) 10/25/2020 10/25/2010 ASC-RBVVS-75 Vaccine (4 - 2024-25 season) 2023 01/25/2021, 05/06/2020, 04/08/2020 FIT-DNA 05/18/2024 05/18/2021 [facility]-Colorectal Cancer Screening 05/18/2024 [facility]-Diabetes: Hemoglobin A1C 08/08/2024 05/09/2024 [facility]-Influenza Vaccine (Season Ended) 2024 [facility]- SDOH Screenings 11/22/2024 [facility]-Adult SDOH Screenings 11/22/2024 05/23/2024 [facility]-Obesity Intervention Completed 025, 06/13/2024, 05/09/2024, Additional history exists HPV Vaccines Aged Out No longer eligi ble based on patient's age to complete this topic [facility]-HIB Vaccines Aged Out No longer e ligible based on patient's age to complete this topic [facility]-IPV Vaccines Aged Out No longer e ligible based on patient's age to complete this topic [facility]-Rotavirus Vaccines Aged Out No lo nger eligible based on patient's age to complete this topic Procedures Procedure Name Priority Date/Time Associated Diagnosis Comments XR CHEST 2 VIEWS Routine 06/20/2024 2:25 PM EDT Coronary artery disease involving grayling coronary artery of grayling heart without angina pectoris CBC W/O DIFFERENTIAL Routine 06/20/2024 2:06 PM EDT Coronary artery disease involving grayling coronary artery of grayling heart without angina pectoris BASIC METABOLIC PANEL, PLASMA Routine 06/20/2024 2:06 PM EDT Coronary artery disease involving grayling coronary artery of grayling heart without angina pectoris POCT GLUCOSE METER UNSOLICITED RESULTS Routine 05/30/2024 12:31 PM EDT POCT GLUCOSE METER UNSOLICITED RESULTS Routine 05/30/2024 8:26 AM EDT XR CHEST 1 VIEW Routine 05/30/2024 4:55 AM EDT MAGNESIUM, PLASMA Pending Discharge 05/30/2024 2:04 AM EDT BASIC METABOLIC PANEL, PLASMA Pending Discharge 05/30/2024 2:04 AM EDT CBC W/O DIFFERENTIAL Pending Discharge 05/30/2024 2:04 AM EDT POCT GLUCOSE METER UNSOLICITED RESULTS Routine 05/29/2024 8:15 PM EDT OXYGEN THERAPY Routine 05/29/2024 6:00 PM EDT POCT GLUCOSE METER UNSOLICITED RESULTS Routine 05/29/2024 5:23 PM EDT POCT GLUCOSE METER UNSOLICITED RESULTS Routine 05/29/2024 12:40 PM EDT POCT GLUCOSE METER UNSOLICITED RESULTS Routine 05/29/2024 8:59 AM EDT OXYGEN THERAPY Routine 05/29/2024 8:00 AM EDT XR CHEST 2 VIEWS Routine 05/29/2024 6:00 AM EDT POCT GLUCOSE METER UNSOLICITED RESULTS Routine 05/29/2024 3:38 AM EDT MAGNESIUM, PLASMA Routine 05/29/2024 2:1 6 AM EDT BASIC METABOLIC PANEL, PLASMA Routine 05/29/2024 2:16 AM EDT CBC W/O DIFFERENTIAL Routine 05/29/2024 2:16 AM EDT POCT GLUCOSE METER UNSOLICITED RESULTS Routine 05/28/2024 10:04 PM EDT POCT GLUCOSE METER UNSOLICITED RESULTS Routine 05/28/2024 9:05 PM EDT OXYGEN THERAPY Routine 05/28/2024 6:00 PM EDT POCT GLUCOSE METER UNSOLICITED RESULTS Routine 05/28/2024 5:10 PM EDT POCT GLUCOSE METER UNSOLICITED RESULTS Routine 05/28/2024 12:19 PM EDT POCT GLUCOSE METER UNSOLICITED RESULTS Routine 05/28/2024 8:31 AM EDT OXYGEN THERAPY Routine 05/28/2024 8:00 AM EDT MAGNESIUM, PLASMA Pending Discharge 05/28/2024 7:25 AM EDT POCT GLUCOSE METER UNSOLICITED RESULTS Routine 05/27/2024 8:04 PM EDT OXYGEN THERAPY Routine 05/27/2024 6:00 PM EDT POCT GLUCOSE METER UNSOLICITED RESULTS Routine 05/27/2024 5:45 PM EDT POCT GLUCOSE METER UNSOLICITED RESULTS Routine 05/27/2024 11:38 AM EDT OXYGEN THERAPY Routine 05/27/2024 8:00 AM EDT POCT GLUCOSE METER UNSOLICITED RESULTS Routine 05/27/2024 7:36 AM EDT XR CHEST 1 VIEW Routine 05/27/2024 2:25 AM EDT CBC W/O DIFFERENTIAL Routine 05/27/2024 12:05 AM EDT BASIC METABOLIC PANEL, PLASMA Routine 05/27/2024 12:05 AM EDT PHOSPHORUS, PLASMA Routine 05/27/2024 12:05 AM EDT MAGNESIUM, PLASMA Routine 05/27/2024 12:05 AM EDT POCT GLUCOSE METER UNSOLICITED RESULTS Routine 05/26/2024 9:42 PM EDT OXYGEN THERAPY Routine 05/26/2024 6:00 PM EDT POCT GLUCOSE METER UNSOLICITED RESULTS Routine 05/26/2024 4:42 PM EDT POCT GLUCOSE METER UNSOLICITED RESULTS Routine 05/26/2024 11:15 AM EDT DIGOXIN LEVEL Timed 05/26/2024 11:13 AM EDT OXYGEN THERAPY Routine 05/26/2024 8:00 AM EDT POCT GLUCOSE METER UNSOLICITED RESULTS Routine 05/26/2024 7:59 AM EDT POCT GLUCOSE METER UNSOLICITED RESULTS Routine 05/26/2024 3:26 AM EDT XR CHEST 1 VIEW Routine 05/26/2024 1:24 AM EDT CBC W/O DIFFERENTIAL Routine 05/26/2024 12:17 AM EDT BASIC METABOLIC PANEL, PLASMA Routine 05/26/2024 12:17 AM EDT PHOSPHORUS, PLASMA Routine 05/26/2024 12:17 AM EDT MAGNESIUM, PLASMA Routine 05/26/2024 12:17 AM EDT PEP THERAPY Routine 05/26/2024 12:00 AM EDT POCT GLUCOSE METER UNSOLICITED RESULTS Routine 05/25/2024 8:35 PM EDT PEP THERAPY Routine 05/25/2024 8:00 PM EDT OXYGEN THERAPY Routine 05/25/2024 6:00 PM EDT POCT GLUCOSE METER UNSOLICITED RESULTS Routine 05/25/2024 4:56 PM EDT IONIZED CALCIUM, WHOLE BLOOD Routine 05/25/2024 4:37 PM EDT MAGNESIUM, PLASMA Routine 05/25/2024 4:3 7 PM EDT RENAL FUNCTION PANEL, PLASMA Routine 05/25/2024 4:37 PM EDT PEP THERAPY Routine 05/25/2024 4:00 PM EDT PEP THERAPY Routine 05/25/2024 12:00 PM EDT POCT GLUCOSE METER UNSOLICITED RESULTS Routine 05/25/2024 11:52 AM EDT PEP THERAPY Routine 05/25/2024 9:00 AM EDT OXYGEN THERAPY Routine 05/25/2024 8:00 AM EDT PEP THERAPY Routine 05/25/2024 7:02 AM EDT PEP THERAPY Routine 05/25/2024 7:02 AM EDT PEP THERAPY Routine 05/25/2024 7:02 AM EDT PEP THERAPY Routine 05/25/2024 7:02 AM EDT PEP THERAPY Routine 05/25/2024 7:02 AM EDT XR CHEST 1 VIEW Routine 05/25/2024 2:10 AM EDT POCT GLUCOSE METER UNSOLICITED RESULTS Routine 05/25/2024 12:15 AM EDT PHOSPHORUS, PLASMA Routine 05/25/2024 12:05 AM EDT MAGNESIUM, PLASMA Routine 05/25/2024 12:05 AM EDT CBC W/O DIFFERENTIAL Routine 05/25/2024 12:05 AM EDT BASIC METABOLIC PANEL, PLASMA Routine 05/25/2024 12:05 AM EDT POCT GLUCOSE METER UNSOLICITED RESULTS Routine 05/24/2024 9:00 PM EDT OXYGEN THERAPY Routine 05/24/2024 6:00 PM EDT POCT GLUCOSE METER UNSOLICITED RESULTS Routine 05/24/2024 4:11 PM EDT MAGNESIUM, PLASMA Routine 05/24/2024 2:5 2 PM EDT RENAL FUNCTION PANEL, PLASMA Routine 05/24/2024 2:52 PM EDT POCT GLUCOSE METER UNSOLICITED RESULTS Routine 05/24/2024 12:11 PM EDT [facility] CRITICAL CARE, E/M 30-74 MINUTES Routine 05/24/2024 10:42 AM EDT S/P CABG x 4 Primary hypertension On supplemental oxygen by nasal cannula Cardiac volume overload Type 2 diabetes mellitus with other specified complication, with long-term current use of insulin ([facility]) Atrial fibrillation with rapid ventricular response ([facility]) Coronary artery disease involving grayling heart, unspecified vessel or lesion type, unspecified whether angina present POCT GLUCOSE METER UNSOLICITED RESULTS Routine 05/24/2024 10:23 AM EDT OXYGEN THERAPY Routine 05/24/2024 8:00 AM EDT POCT GLUCOSE METER UNSOLICITED RESULTS Routine 05/24/2024 7:54 AM EDT POCT GLUCOSE METER UNSOLICITED RESULTS Routine 05/24/2024 6:33 AM EDT PEP THERAPY Routine 05/24/2024 6:00 AM EDT POCT GLUCOSE METER UNSOLICITED RESULTS Routine 05/24/2024 4:39 AM EDT XR CHEST 1 VIEW Routine 05/24/2024 2:15 AM EDT POCT GLUCOSE METER UNSOLICITED RESULTS Routine 05/24/2024 2:11 AM EDT CBC W/O DIFFERENTIAL Routine 05/24/2024 12:15 AM EDT BASIC METABOLIC PANEL, PLASMA Routine 05/24/2024 12:15 AM EDT PHOSPHORUS, PLASMA Routine 05/24/2024 12:15 AM EDT MAGNESIUM, PLASMA Routine 05/24/2024 12:15 AM EDT POCT GLUCOSE METER UNSOLICITED RESULTS Routine 05/24/2024 12:11 AM EDT POCT GLUCOSE METER UNSOLICITED RESULTS Routine 05/23/2024 10:09 PM EDT PEP THERAPY Routine 05/23/2024 10:00 PM EDT POCT GLUCOSE METER UNSOLICITED RESULTS Routine 05/23/2024 8:15 PM EDT POCT GLUCOSE METER UNSOLICITED RESULTS Routine 05/23/2024 6:19 PM EDT OXYGEN THERAPY Routine 05/23/2024 6:00 PM EDT PEP THERAPY Routine 05/23/2024 6:00 PM EDT POCT GLUCOSE METER UNSOLICITED RESULTS Routine 05/23/2024 5:30 PM EDT POCT GLUCOSE METER UNSOLICITED RESULTS Routine 05/23/2024 4:09 PM EDT MAGNESIUM, PLASMA Routine 05/23/2024 2:0 8 PM EDT RENAL FUNCTION PANEL, PLASMA Routine 05/23/2024 2:08 PM EDT POCT GLUCOSE METER UNSOLICITED RESULTS Routine 05/23/2024 2:02 PM EDT PEP THERAPY Routine 05/23/2024 2:00 PM EDT POCT GLUCOSE METER UNSOLICITED RESULTS Routine 05/23/2024 12:13 PM EDT PEP THERAPY Routine 05/23/2024 10:00 AM EDT POCT GLUCOSE METER UNSOLICITED RESULTS Routine 05/23/2024 9:55 AM EDT NH CRITICAL CARE, E/M 30-74 MINUTES Routine 05/23/2024 9:50 AM EDT Post-op pain S/P CABG x 4 Coronary artery disease involving grayling coronary artery of grayling heart without angina pectoris Type 2 diabetes mellitus with other specified complication, without long-term current use of insulin ([facility]) Chronic obstructive pulmonary disease, unspecified COPD type ([facility]) Hyperlipidemia with target LDL less than 100 Primary hypertension Gastroesophageal reflux disease without esophagitis Coronary artery disease of grayling artery of grayling heart with stable angina pectoris ([facility]) On supplemental oxygen by nasal cannula Cardiac volume overload Anemia, unspecified type Leukocytosis, unspecified type Type 2 diabetes mellitus with other specified complication, with long-term current use of insulin ([facility]) POCT GLUCOSE METER UNSOLICITED RESULTS Routine 05/23/2024 8:06 AM EDT OXYGEN THERAPY Routine 05/23/2024 8:00 AM EDT PEP THERAPY Routine 05/23/2024 6:00 AM EDT POCT GLUCOSE METER UNSOLICITED RESULTS Routine 05/23/2024 6:00 AM EDT POCT GLUCOSE METER UNSOLICITED RESULTS Routine 05/23/2024 4:04 AM EDT BASIC METABOLIC PANEL, PLASMA Routine 05/23/2024 4:00 AM EDT CBC W/O DIFFERENTIAL Routine 05/23/2024 4:00 AM EDT BLOOD GAS PANEL, ARTERIAL Routine 05/23/2024 4:00 AM EDT ECG ADULT Routine 05/23/2024 3:52 AM EDT XR CHEST 1 VIEW Routine 05/23/2024 3:48 AM EDT POCT GLUCOSE METER UNSOLICITED RESULTS Routine 05/23/2024 2:06 AM EDT POCT GLUCOSE METER UNSOLICITED RESULTS Routine 05/23/2024 12:26 AM EDT PHOSPHORUS, PLASMA Routine 05/23/2024 12:22 AM EDT MAGNESIUM, PLASMA Routine 05/23/2024 12:22 AM EDT POTASSIUM, PLASMA Timed 05/23/2024 12:22 AM EDT HEMATOCRIT, BLOOD Timed 05/23/2024 12:22 AM EDT HEMOGLOBIN Timed 05/23/2024 12:22 AM EDT BLOOD GAS PANEL, ARTERIAL Timed 05/23/2024 12:21 AM EDT PEP THERAPY Routine 05/22/2024 10:00 PM EDT POCT GLUCOSE METER UNSOLICITED RESULTS Routine 05/22/2024 9:56 PM EDT POTASSIUM, PLASMA Timed 05/22/2024 7:5 5 PM EDT HEMATOCRIT, BLOOD Timed 05/22/2024 7:5 5 PM EDT HEMOGLOBIN Timed 05/22/2024 7:55 PM EDT BLOOD GAS PANEL, ARTERIAL Timed 05/22/2024 7:54 PM EDT BLOOD GAS PANEL, ARTERIAL Timed 05/22/2024 6:12 PM EDT OXYGEN THERAPY Routine 05/22/2024 6:00 PM EDT PEP THERAPY Routine 05/22/2024 6:00 PM EDT XR CHEST 1 VIEW STAT 05/22/2024 5:51 PM EDT OXYGEN THERAPY Routine 05/22/2024 5:21 PM EDT OXYGEN THERAPY Routine 05/22/2024 5:21 PM EDT EXTUBATION Routine 05/22/2024 5:21 PM EDT BLOOD GAS PANEL, ARTERIAL Routine 05/22/2024 4:54 PM EDT NH CRITICAL CARE, E/M 30-74 MINUTES Routine 05/22/2024 4:34 PM EDT Electrolyte abnormality Post-op pain On mechanically assisted ventilation ([facility]) NSTEMI (non-ST elevated myocardial infarction) ([facility]) S/P CABG x 4 Coronary artery disease involving grayling coronary artery of grayling heart without angina pectoris Type 2 diabetes mellitus with other specified complication, without long-term current use of insulin ([facility]) Chronic obstructive pulmonary disease, unspecified COPD type ([facility]) Hyperlipidemia with target LDL less than 100 Primary hypertension Gastroesophageal reflux disease without esophagitis Coronary artery disease of grayling artery of grayling heart with stable angina pectoris ([facility]) ECG ADULT STAT 05/22/2024 4:04 PM EDT APTT STAT 05/22/2024 3:45 PM EDT PROTHROMBIN TIME(PT) / INR STAT 05/22/2024 3:45 PM EDT PHOSPHORUS, PLASMA STAT 05/22/2024 3: 45 PM EDT MAGNESIUM, PLASMA STAT 05/22/2024 3:4 5 PM EDT BASIC METABOLIC PANEL, PLASMA STAT 05/22/2024 3:45 PM EDT CBC W/O DIFFERENTIAL STAT 05/22/2024 3:45 PM EDT BLOOD GAS PANEL, ARTERIAL STAT 05/22/2024 3:45 PM EDT PHUONG AURIS SURVEILLANCE BY PCR Routine 05/22/2024 3:45 PM EDT MULTI DRUG RESISTANCE TEST Routine 05/22/2024 3:45 PM EDT PEP THERAPY Routine 05/22/2024 3:42 PM EDT PEP THERAPY Routine 05/22/2024 3:42 PM EDT PEP THERAPY Routine 05/22/2024 3:42 PM EDT PEP THERAPY Routine 05/22/2024 3:42 PM EDT PEP THERAPY Routine 05/22/2024 3:42 PM EDT QPLUS Routine 05/22/2024 2:29 PM EDT POCT ACT UNSOLICITED RESULTS Routine 05/22/2024 2:20 PM EDT POCT ARTERIAL BLOOD GAS GEM UNSOLICITED RESULTS Routine 05/22/2024 2:20 PM EDT POCT ACT UNSOLICITED RESULTS Routine 05/22/2024 2:15 PM EDT POCT ARTERIAL BLOOD GAS GEM UNSOLICITED RESULTS Routine 05/22/2024 1:58 PM EDT POCT ACT UNSOLICITED RESULTS Routine 05/22/2024 1:55 PM EDT POCT ARTERIAL BLOOD GAS GEM UNSOLICITED RESULTS Routine 05/22/2024 1:24 PM EDT POCT ACT UNSOLICITED RESULTS Routine 05/22/2024 1:18 PM EDT POCT ARTERIAL BLOOD GAS GEM UNSOLICITED RESULTS Routine 05/22/2024 12:49 PM EDT POCT ACT UNSOLICITED RESULTS Routine 05/22/2024 12:45 PM EDT POCT ARTERIAL BLOOD GAS GEM UNSOLICITED RESULTS Routine 05/22/2024 12:19 PM EDT POCT ACT UNSOLICITED RESULTS Routine 05/22/2024 12:15 PM EDT POCT ARTERIAL BLOOD GAS GEM UNSOLICITED RESULTS Routine 05/22/2024 11:52 AM EDT POCT ACT UNSOLICITED RESULTS Routine 05/22/2024 11:47 AM EDT PB ANESTHESIA NON-TIMED PROCEDURE PLACEHOLDER Routine 05/22/2024 11:45 AM EDT POCT ARTERIAL BLOOD GAS GEM UNSOLICITED RESULTS Routine 05/22/2024 11:21 AM EDT POCT ACT UNSOLICITED RESULTS Routine 05/22/2024 11:16 AM EDT NH INSERT/PLACE FLOW DIRECT CATH Routine 05/22/2024 9:59 AM EDT ANESTHESIA ULTRASOUND GUIDED Routine 05/22/2024 9:59 AM EDT PB ANESTHESIA NON-TIMED PROCEDURE PLACEHOLDER Routine 05/22/2024 9:59 AM EDT NH AN CENTRAL LINE DOUBLE LUMEN Routine 05/22/2024 9:59 AM EDT PB ANESTHESIA NON-TIMED PROCEDURE PLACEHOLDER Routine 05/22/2024 9:50 AM EDT PB ANESTHESIA PLACEHOLDER Routine 05/22/2024 9:04 AM EDT NH AN ELECTIVE ENDOTRACHEAL AIRWAY Routine 05/22/2024 9:04 AM EDT POCT ACT UNSOLICITED RESULTS Routine 05/22/2024 8:55 AM EDT NH CABG, ARTERIAL, SINGLE 05/22/2024 8:30 AM EDT Coronary artery disease involving grayling coronary artery of grayling heart without angina pectoris Cirrhosis of liver without ascites, unspecified hepatic cirrhosis type (CMS/HCC) Hypertrophic cardiomyopathy (CMS/HCC) Severe hypertension TYPE AND SCREEN Routine 05/22/2024 6:31 AM EDT PREPARE RBC Routine 05/22/2024 6:01 AM EDT POCT GLUCOSE METER UNSOLICITED RESULTS Routine 05/22/2024 5:58 AM EDT XR CHEST 2 VIEWS Routine 05/09/2024 12:14 PM EDT Coronary artery disease involving grayling coronary artery of grayling heart without angina pectoris CBC WITH AUTO DIFFERENTIAL Routine 05/09/2024 11:59 AM EDT Coronary artery disease involving grayling coronary artery of grayling heart without angina pectoris COMPREHENSIVE METABOLIC PANEL, PLASMA Routine 05/09/2024 11:59 AM EDT Coronary artery disease involving grayling coronary artery of grayling heart without angina pectoris HEMOGLOBIN A1C Routine 05/09/2024 11:59 AM EDT Coronary artery disease involving grayling coronary artery of grayling heart without angina pectoris PROTHROMBIN TIME(PT) / INR Routine 05/09/2024 11:59 AM EDT Coronary artery disease involving grayling coronary artery of grayling heart without angina pectoris APTT Routine 05/09/2024 11:59 AM EDT Coronary artery disease involving grayling coronary artery of grayling heart without angina pectoris TYPE AND SCREEN 30 DAYS Routine 05/09/2024 11:59 AM EDT Coronary artery disease involving grayling coronary artery of grayling heart without angina pectoris from Last 3 Months Results * XR Chest 2 Views (06/20/2024 2:25 PM EDT) Only the most recent of3 resultswithin the time period is included. Anatomical Region Laterality Modality Chest Digital Radiogra [...] XR PROCEDURES Final Resu lt * (ABNORMAL) CBC W/O Differential (06/20/2024 2:06 PM EDT) Only the most recent of9 resultswithin the time period is included. WBC Count 10.02 3.70 - 10.30 10*3/uL LAB HEMATOLOGY METHOD 06/20/2024 4:11 PM EDT [facility] RBC Count 4.96 4.60 - 6.10 10*6/uL LAB HEMATOLOGY METHOD 06/20/2024 4:11 PM EDT [facility] HGB 12.0(L) 13.7 - 17.5 g/dL LAB HEMATOLOGY METHOD 06/20/2024 4:11 PM EDT [facility] HCT 39.7(L) 40.0 - 51.0 % LAB HEMATOLOGY METHOD 06/20/2024 4:11 PM EDT [facility] Platelet Count 430(H) 155 - 369 10*3/uL LAB HEMATOLOGY METHOD 06/20/2024 4:11 PM EDT [facility] MCV 80 79 - 98 fL LAB HEMATOLOGY METHOD 06/20/2024 4:11 PM EDT [facility] MCH 24.2(L) 26.0 - 32.0 pg LAB HEMATOLOGY METHOD 06/20/2024 4:11 PM EDT [facility] MCHC 30.2(L) 30.7 - 35.5 g/dL LAB HEMATOLOGY METHOD 06/20/2024 4:11 PM EDT [facility] RDW 14.1 11.5 - 14.5 % LAB HEMATOLOGY METHOD 06/20/2024 4:11 PM EDT [facility] MPV 8.9 8.8 - 12.5 fL LAB HEMATOLOGY METHOD 06/20/2024 4:11 PM EDT [facility] nRBC 0.0 <=0.0 per 100 WBCs LAB HEMATOLOGY METHOD 06/20/2024 4:11 PM EDT [facility] Blood Venous blood specimen / Unknown Venipuncture / Unknown 06/20/2024 2:06 PM EDT 06/20/2024 2:06 PM EDT us Kishan St MD LAB BLOOD ORDERABLES Final R esult [facility] [address] [place] [address] * (ABNORMAL) Basic Metabolic Panel, Plasma (06/20/2024 2:06 PM EDT) Only the most recent of9 resultswithin the time period is included. Glucose, Plasma 146(H) 74 - 99 mg/dL 06/20/2024 4:21 PM EDT [facility] BUN, Plasma 16 7 - 21 mg/dL 06/20/2024 4:21 PM EDT [facility] Creatinine, Plasma 1.11 0.70 - 1.20 mg/dL 06/20/2024 4:21 PM EDT [facility] BUN/Creatinine Ratio 14 06/20/2024 4:21 PM EDT [facility] Sodium, Plasma 135(L) 136 - 145 mmol/L 06/20/2024 4:21 PM EDT [facility] Potassium, Plasma 4.2 3.6 - 4.9 mmol/L 06/20/2024 4:21 PM EDT [facility] Chloride, Plasma 99 97 - 107 mmol/L 06/20/2024 4:21 PM EDT [facility] CO2, Plasma 25 22 - 29 mmol/L 06/20/2024 4:21 PM EDT [facility] Anion Gap 11 6 - 16 mmol/L 06/20/2024 4:21 PM EDT [facility] Total Calcium, Plasma 10.1 8.9 - 10.2 mg/dL 06/20/2024 4:21 PM EDT [facility] eGFRcr 76.5 mL/min/1.7 3m*2 06/20/2024 4:21 PM EDT [facility] Comment:Reported eGFRcr in m L/min/1.73m2 is based the CKD-EPI 2020 equation that does not use a race coefficient. Blood Venous blood specimen / Unknown Venipuncture / Unknown 06/20/2024 2:06 PM EDT 06/20/2024 2:06 PM EDT us Kishan St MD LAB BLOOD ORDERABLES Final R esult Performing Organization Address City/[facility] Co de Phone Number [facility] [address] [place] [address] * (ABNORMAL) POCT glucose meter (05/30/2024 12:31 PM EDT) Only the most recent of49 resultswithin the time period is included. POCT Glucose 153(H) 74 - 99 mg/dL 05/30/2024 12:32 PM EDT [facility] Comment:Accuracy of a glucos e result obtained from a capillary whole blood specimen relies upon adequate, non-compromised capillary blood flow. If the capillary glucose result is not consistent with the patient's clinical signs and symptoms, glucose testing should be repeated with either an arterial or venous sample on the glucometer or sent to the main labortory for testing. Comment 05/30/2024 12:32 PM EDT [facility] Cell Plasterer ID Lupe Keane 05/31/19 25 12:32 PM EDT [facility] Device ID [id number] 05/30/2024 12:32 PM EDT [facility] Specimen Type POC Capillary 05/30/2024 12:32 PM EDT [facility] Blood Capillary blood specimen / Unknown 05/30/2024 12:31 PM EDT 05/30/2024 12:32 PM EDT us Kishan [facility] MD LAB POINT OF CARE TE ST DOCKED DEVICE UNSOLICITED RESULTS Final Result Performing Organization Address [facility] Co de Phone Number [facility] [address] [place] [address] * XR Chest 1 View (05/30/2024 4:55 AM EDT) Only the most recent of7 resultswithin the time period is included. Anatomical Region Laterality Modality Chest Digital Radiogra phy Impressions 05/30/2024 9:39 AM EDT Stable exam. CRITICAL RESULT: No. COMMUNICATION: Per this written report. Drafted by Kishan Ortega MD on 05/30/2024 9:38 AM Final report signed by Kishan Ortega MD on 05/30/2024 9:39 AM Narrative 05/30/2024 9:39 AM EDT CLINICAL INDICATION: eval lung pacheco TECHNIQUE: XR CHEST 1 VIEW COMPARISON: 05/29/2024 FINDINGS: Small pleural effusions and basilar atelectasis, similar in appearance. No edema or pneumothorax. Procedure Note Kishan Ortega MD - 05/30/2024 CLINICAL INDICATION: eval lung pacheco TECHNIQUE: XR CHEST 1 VIEW COMPARISON: 05/29/2024 FINDINGS: Small pleural effusions and basilar atelectasis, similar in appearance. Noedema or pneumothorax. IMPRESSION: Stable exam. CRITICAL RESULT: No. COMMUNICATION: Per this written report. Drafted by Kishan Ortega MD on 05/30/2024 9:38 AM Final report signed by Kishan Ortega MD on 05/30/2024 9:39 AM Elian [facility] IMG XR PROCEDURES Final Resu lt * Magnesium (05/30/2024 2:04 AM EDT) Only the most recent of12 resultswithin the time period is included. Magnesium, Plasma 1.9 1.9 - 2.4 mg/dL 05/30/2024 2:40 AM EDT [facility] Blood Venous blood specimen / Unknown Venipuncture / Unknown 05/30/2024 2:04 AM EDT 05/30/2024 2:11 AM EDT Sb HIGH LAB BLOOD ORDERABLES Final Result [facility] [address] [place] [address] * Phosphorus, Plasma (05/27/2024 12:05 AM EDT) Only the most recent of6 resultswithin the time period is included. Phosphorus, Plasma 3.2 2.5 - 4.5 mg/dL 05/27/2024 12:59 AM EDT [facility] Blood Venous blood specimen / Unknown Venipuncture / Unknown 05/27/2024 12:05 AM EDT 05/27/2024 12:27 AM EDT us Kristie Rasheed RECORDS MANAGEMENT TECHNICIAN, TRANSPORTATION COORDINATOR, DNP LAB BLOOD ORDERABL ES Final Result Performing Organization Address [facility] Co de Phone Number [facility] [address] [place] [address] * (ABNORMAL) Digoxin (05/26/2024 11:13 AM EDT) Digoxin 0.6(L) 0.8 - 2.0 ng/mL 05/26/2024 1:31 PM EDT [facility] Comment: Therapeutic: 0.8 to 2.0 ng/mL Supratherapeutic: >2.0 ng/mL Blood Venous blood specimen / Unknown Venipuncture / Unknown 05/26/2024 11:13 AM EDT 05/26/2024 12:31 PM EDT us Britta Dawn APRN LAB BLOOD ORDERABLES Final Result Performing Organization Address [facility] Co de Phone Number [facility] [address] [place] [address] * (ABNORMAL) Ionized calcium, whole blood (05/25/2024 4:37 PM EDT) [facility] Ionized Calcium, Whole Blood 4.4(L) 4.6 - 5.1 mg/dL LAB HEMATOLOGY METHOD 05/25/2024 5:07 PM EDT [facility] Blood Venous blood specimen / Unknown Venipuncture / Unknown 05/25/2024 4:37 PM EDT 05/25/2024 5:04 PM EDT us Kishan [facility] MD LAB BLOOD ORDERABLES Final R esult Performing Organization Address [facility] Co de Phone Number [facility] [address] [place] [address] * (ABNORMAL) Renal function panel (05/25/2024 4:37 PM EDT) Only the most recent of3 resultswithin the time period is included. Glucose, Plasma 282(H) 74 - 99 mg/dL 05/25/2024 5:34 PM EDT [facility] BUN, Plasma 18 7 - 21 mg/dL 05/25/2024 5:34 PM EDT [facility] Creatinine, Plasma 0.78 0.70 - 1.20 mg/dL 05/25/2024 5:34 PM EDT [facility] BUN/Creatinine Ratio 23 05/25/2024 5:34 PM EDT [facility] Sodium, Plasma 131(L) 136 - 145 mmol/L 05/25/2024 5:34 PM EDT [facility] Potassium, Plasma 4.1 3.6 - 4.9 mmol/L 05/25/2024 5:34 PM EDT [facility] Chloride, Plasma 95(L) 97 - 107 mmol/L 05/25/2024 5:34 PM EDT [facility] CO2, Plasma 26 22 - 29 mmol/L 05/25/2024 5:34 PM EDT [facility] Anion Gap 10 6 - 16 mmol/L 05/25/2024 5:34 PM EDT [facility] Total Calcium, Plasma 8.6(L) 8.9 - 10.2 mg/dL 05/25/2024 5:34 PM EDT [facility] Phosphorus, Plasma 3.0 2.5 - 4.5 mg/dL 05/25/2024 5:34 PM EDT [facility] Albumin, Plasma 3.3(L) 3.5 - 5.2 g/dL 05/25/2024 5:34 PM EDT [facility] eGFRcr 102.7 mL/min/1.7 3m*2 05/25/2024 5:34 PM EDT [facility] Comment:Reported eGFRcr in m L/min/1.73m2 is based the CKD-EPI 2020 equation that does not use a race coefficient. Blood Venous blood specimen / Unknown Venipuncture / Unknown 05/25/2024 4:37 PM EDT 05/25/2024 5:03 PM EDT us Kishan [address] MD LAB BLOOD ORDERABLES Final R esult [facility] [address] [place] [address] * NH CRITICAL CARE, E/M 30-74 MINUTES (05/24/2024 10:42 AM EDT) Narrative Kristie Rasheed APRN, CNS, DNP - 05/24/2024 10:42 AM EDT Kristie Rasheed APRN, CNS, DNP 05/24/2024 10:52 AM Critical Care Performed by: Kristie Rasheed APRN, CNS, DNP Authorized by: Kristie Rasheed APRN, CNS, DNP Critical care provider statement: Critical care time (minutes): 40 Critical care was time spent personally by me on the following activities: Development of treatment plan with patient or surrogate, discussions with consultants, discussions with primary provider, evaluation of patient's response to treatment, examination of patient, ordering and performing treatments and interventions, ordering and review of laboratory studies, ordering and review of radiographic studies and review of old charts Comments: The patient is critically ill with: CAD s/p CABG, COPD, Afib RVR, on supplemental oxygen, cardiac volume overload, HTN, HLD, DM2, and post-op pain. They require complex decision making. The patient was seen on rounds with critical care physician, Dr. Domenico Hoff and they are in agreement with the plan of care. Pharmacy, respiratory and nursing services were present on rounds. PAVAN Bauer APRN, DNP IN CLINIC/BEDSIDE ORDERABLES Final Result * NH CRITICAL CARE, E/M 30-74 MINUTES (05/23/2024 9:50 AM EDT) Narrative Tasia Kraft APRN - 05/23/2024 9:50 AM EDT Tasia Kraft APRN 05/23/2024 9:57 AM Critical Care Performed by: Tasia Kraft APRN Authorized by: Tasia Kraft APRN Critical care provider statement: Critical care time (minutes): 46 Critical care was time spent personally by me on the following activities: Development of treatment plan with patient or surrogate, discussions with consultants, discussions with primary provider, evaluation of patient's response to treatment, examination of patient, ordering and performing treatments and interventions, ordering and review of laboratory studies and ordering and review of radiographic studies Comments: The patient is critically ill with: CAD s/p CABG, COPD, on supplemental oxygen, cardiac volume overload, electrolyte abnormality, anemia, leukocytosis, HTN, HLD, DM2, and post-op pain. They require complex decision making. The patient was seen on rounds with critical care physician, Dr. Domenico Hoff and they are in agreement with the plan of care. Pharmacy, respiratory and nursing services were present on rounds. us Tasia Kraft APRN IN CLINIC/BEDSIDE ORDERA BLES Final Result * (ABNORMAL) Blood gas, arterial (05/23/2024 4:00 AM EDT) Only the most recent of6 resultswithin the time period is included. pH, Arterial 7.43 7.35 - 7.45 LAB HEMATOLOGY METHOD 05/23/2024 4:16 AM EDT [facility] pCO2, Arterial 35 32 - 45 mmHg LAB HEMATOLOGY METHOD 05/23/2024 4:16 AM EDT [facility] pO2, Arterial 74(L) 83 - 108 mmHg LAB HEMATOLOGY METHOD 05/23/2024 4:16 AM EDT [facility] SO2, Measured, Arterial 97 94 - 98 % LAB HEMATOLOGY METHOD 05/23/2024 4:16 AM EDT [facility] Base Excess, Arterial -0.7 -2.0 - 3.0 mmol/L LAB HEMATOLOGY METHOD 05/23/2024 4:16 AM EDT [facility] Bicarbonate, Calculated, Arterial 23 22 - 26 mmol/L LAB HEMATOLOGY METHOD 05/23/2024 4:16 AM EDT [facility] Hematocrit, Whole Blood 34.8(L) 40.0 - 51.0 % LAB HEMATOLOGY METHOD 05/23/2024 4:16 AM EDT [facility] Sodium, Whole Blood 134(L) 136 - 145 mmol/L LAB HEMATOLOGY METHOD 05/23/2024 4:16 AM EDT [facility] Potassium, Whole Blood 4.0 3.6 - 4.9 mmol/L LAB HEMATOLOGY METHOD 05/23/2024 4:16 AM EDT [facility] Chloride, Whole Blood 105 97 - 107 mmol/L LAB HEMATOLOGY METHOD 05/23/2024 4:16 AM EDT [facility] Glucose, Whole Blood 162(H) 74 - 99 mg/dL LAB HEMATOLOGY METHOD 05/23/2024 4:16 AM EDT [facility] Ionized Calcium, Whole Blood 4.4(L) 4.6 - 5.1 mg/dL LAB HEMATOLOGY METHOD 05/23/2024 4:16 AM EDT [facility] Lactate, Arterial, Whole Blood 1.5 0.5 - 1.6 mmol/L LAB HEMATOLOGY METHOD 05/23/2024 4:16 AM EDT [facility] Blood Arterial blood specimen / Unknown Arterial Puncture / Unknown 05/23/2024 4:00 AM EDT 05/23/2024 4:13 AM EDT Kelton [facility] LAB BLOOD ORDERABLES Final Resu lt Performing Organization Address City/[facility] Co de Phone Number [facility] [address] [place] [address] * ECG Adult - POD 1 (05/23/2024 3:52 AM EDT) Only the most recent of2 resultswithin the time period is included. EKG DIAGNOSIS CLASS Abnormal MUSE ECG Ventricular Rate 94 BPM MUSE ECG Atrial Rate 94 BPM MUSE ECG NH Interval 160 ms MUSE ECG QRSD Interval 106 ms MUSE ECG QT Interval 400 ms MUSE ECG QTC Interval 500 ms MUSE ECG P [place] 36 degrees MUSE ECG R [place] -45 degrees MUSE ECG T Wave [place] 59 degrees MUSE ECG Diagnosis Normal sinus rhythm MUSE ECG Diagnosis Left axis deviation MUSE ECG Diagnosis Inferior infarct , age undetermined MUSE ECG Diagnosis Prolonged QT MUSE ECG Diagnosis Abnormal ECG MUSE ECG Diagnosis MUSE ECG Diagnosis Confirmed by Kelton Hastings ([id number]) on 05/24/2024 9:51:56 AM MUSE ECG 05/23/2024 3:52 AM EDT 05/24/2024 9:51 AM EDT [facility] ECG ORDERABLES Final Result Performing Organization Address City/[facility]/ZIP Co de Phone Number MUSE ECG * (ABNORMAL) Hemoglobin (05/23/2024 12:22 AM EDT) Only the most recent of2 resultswithin the time period is included. HGB 11.8(L) 13.7 - 17.5 g/dL LAB HEMATOLOGY METHOD 05/23/2024 1:11 AM EDT [facility] Blood Venous blood specimen / Unknown Venipuncture / Unknown 05/23/2024 12:22 AM EDT 05/23/2024 12:39 AM EDT us Kelton HIGH LAB BLOOD ORDERABLES Final Resu lt Performing Organization Address City/[facility]/ZIP Co de Phone Number [facility] [address] [place] [address] * (ABNORMAL) Hematocrit (05/23/2024 12:22 AM EDT) Only the most recent of2 resultswithin the time period is included. HCT 35.8(L) 40.0 - 51.0 % LAB HEMATOLOGY METHOD 05/23/2024 1:11 AM EDT [facility] Blood Venous blood specimen / Unknown Venipuncture / Unknown 05/23/2024 12:22 AM EDT 05/23/2024 12:39 AM EDT us Kelton HIGH LAB BLOOD ORDERABLES Final Resu lt Performing Organization Address City/[facility] [place] [place] [address] * Potassium, Plasma (05/23/2024 12:22 AM EDT) Only the most recent of2 resultswithin the time period is included. Potassium, Plasma 4.4 3.6 - 4.9 mmol/L 05/23/2024 1:04 AM EDT [facility] Blood Venous blood specimen / Unknown Venipuncture / Unknown 05/23/2024 12:22 AM EDT 05/23/2024 12:35 AM EDT us Kelton HIGH LAB BLOOD ORDERABLES Final Resu lt Performing Organization Address City/[facility]/ZIP Co de Phone Number [facility] [address] [place] [address] * NH CRITICAL CARE, E/M 30-74 MINUTES (05/22/2024 4:34 PM EDT) Narrative Tasia Kraft APRN - 05/22/2024 4:34 PM EDT Tasia Kraft APRN 05/22/2024 4:40 PM Critical Care Performed by: Tasia rKaft APRN Authorized by: Tasia Kraft APRN Critical care provider statement: Critical care time (minutes): 58 Critical care was time spent personally by me on the following activities: Development of treatment plan with patient or surrogate, discussions with consultants, discussions with primary provider, evaluation of patient's response to treatment, examination of patient, obtaining history from patient or surrogate, ordering and performing treatments and interventions, ordering and review of laboratory studies, ordering and review of radiographic studies, review of old charts and ventilator management Comments: The patient is critically ill with: CAD s/p CABG, on mechanical ventilator, electrolyte abnormality, HTN on nitroglycerin gtt, HLD, DM2, GERD, and post-op pain. They require complex decision making. The patient was seen on rounds with critical care physician, Dr. Domenico Hoff and they are in agreement with the plan of care. Pharmacy, respiratory and nursing services were present on rounds. us Tasia Kraft APRN IN CLINIC/BEDSIDE ORDERA BLES Final Result * Phuong auris Surveillance by PCR (05/22/2024 3:45 PM EDT) Phuong auris PCR Result Not Detected Not Detected 05/23/2024 11:36 AM EDT [facility] Swab (Axilla and Groin) Non-blood Collection / Unknown 05/22/2024 3:45 PM EDT 05/22/2024 4:28 PM EDT Narrative [facility] - 05/23/2024 11:36 AM EDT This PCR assay was developed and its performance characteristics determined by [facility] as appropriate for clinical purposes. This assay has not been cleared or approved by the FDA, but is performed in a CLIA regulated laboratory that is qualified to perform high-complexity testing. us Kelton M Tolbert [facility] LAB MICROBIOLOGY - GENERAL ORDE RABLOLA Final Result Performing Organization Address [facility] Co de Phone Number [facility] [address] [place] [address] * Multi Drug Resistance Test (05/22/2024 3:45 PM EDT) Culture No growth at day 1 05/23/2024 2:22 PM EDT [facility] Swab (Nares and Chari Rectal) Non-blood Collection / Unknown 05/22/2024 3:45 PM EDT 05/22/2024 4:28 PM EDT [facility] LAB MICROBIOLOGY - GENERAL ORDE RABLOLA Final Result Performing Organization Address [facility] [place] [address] * APTT (05/22/2024 3:45 PM EDT) Only the most recent of2 resultswithin the time period is included. aPTT 30 25 - 35 sec LAB COAGULATION METHOD 05/22/2024 4:56 PM EDT [facility] Blood Venous blood specimen / Unknown Venipuncture / Unknown 05/22/2024 3:45 PM EDT 05/22/2024 4:35 PM EDT [facility] LAB BLOOD ORDERABLES Final Resu lt Performing Organization Address [facility] Co de Phone Number [facility] [address] [place] [address] * (ABNORMAL) Protime-INR (05/22/2024 3:45 PM EDT) Only the most recent of2 resultswithin the time period is included. Prothrombin Time 15.6(H) 12.0 - 14.3 sec LAB COAGULATION METHOD 05/22/2024 4:56 PM EDT [facility] INR 1.2(H) 0.9 - 1.1 LAB COAGULATION METHOD 05/22/2024 4:56 PM EDT [facility] Blood Venous blood specimen / Unknown Venipuncture / Unknown 05/22/2024 3:45 PM EDT 05/22/2024 4:35 PM EDT Narrative [facility] - 05/22/2024 4:56 PM EDT OPTIMAL INR RANGES FOR PATIENT ON ORAL ANTICOAGULANT THERAPY Prevention of venous thromboembolism INR 2.0 to 3.0 In patients with heart disease: Atrial fibrillation INR 2.0 to 3.0 Valvular heart disease INR 2.0 to 3.0 Tissue heart valves INR 2.0 to 3.0 Mechanical prosthetic valves INR 2.5 to 3.5 Prevention of recurrent PR INR 2.5 to 3.5 us [place] [facility] BLOOD ORDERABLES Final Resu lt [facility] [address] [place] [address] * QPLUS (05/22/2024 2:29 PM EDT) Clot Time 142 104 - 166 Seconds 05/22/2024 2:43 PM EDT [facility] Clot Time Ratio 1.1 0.8 - 1.2 2:43 PM EDT [facility] Comment:The Clot Time Ratio (CTR) is a calculated parameter. CTR values of 0.8 1.2 are demonstrated to be typical of n ormal patient samples. Samples with CTR values > 1.4 are indicative of prolongation of the intrinsic pathway clotting time, likely due to the influence of unfractionated heparin. POCT Clot Stiffness 26.3 13.0 - 33.2 hectoPascals 05/22/2024 2:43 PM EDT [facility] Platelet Contribution to Clot Stiffnes 23.4 11.9 - 29.8 hectoPascals 05/22/2024 2:43 PM EDT [facility] Fibrinogen Contribution to Clot Stiffness 2.9 1.0 - 3.7 hectoPascals 05/22/2024 2:43 PM EDT [facility] Heparinase Clot Time 135 103 - 153 Seconds 05/22/2024 2:43 PM EDT [facility] Cell Plasterer ID Uli Chan 05/22/2024 2:43 PM EDT [facility] Device ID [id number] 05/22/2024 2:43 PM EDT [facility] Whole Blood 05/22/2024 2:29 PM EDT 05/22/2024 2:[address] MD LAB POINT OF CARE TE ST DOCKED DEVICE UNSOLICITED RESULTS Final Result Performing Organization Address [facility] de Phone Number [facility] [address] [place] [address] * POCT ACT (05/22/2024 2:20 PM EDT) Only the most recent of9 resultswithin the time period is included. ACT+ (HIGH RANGE) 120 68 - 600 Seconds 05/25/2024 3:06 AM EDT [facility] Cell Plasterer ID Michelle Crowell 05/25/2024 3:06 AM EDT [facility] ACT Device ID [id number] 05/25/2024 3:06 AM EDT [facility] Comment 05/25/2024 3:06 AM EDT [facility] Comment: ACT performed by staff at point of care. Results are reported immediately to the physician or primary caregiver. The activated clotting time is performed on patients with diverse clinical characteristics and treatment histories. Therefore, expected values are variable and results must be interpreted in the context of each individual patient. Blood Venous blood specimen / Unknown 05/22/2024 2:20 PM EDT 05/25/2024 3:[address] MD LAB POINT OF CARE TE ST DOCKED DEVICE UNSOLICITED RESULTS Final Result Performing Organization Address [facility] de Phone Number [facility] [address] [facility] [address] [place] [address] * (ABNORMAL) POCT arterial blood gas gem (05/22/2024 2:20 PM EDT) Only the most recent of7 resultswithin the time period is included. pH, Arterial 7.33(L) 7.35 - 7.45 05/22/2024 2:22 PM EDT [facility] pCO2, Arterial 38 32 - 45 mm Hg 05/22/2024 2:22 PM [facility] pO2, Arterial 97 83 - 108 mm Hg 05/22/2024 2:22 PM [facility] SO2, Arterial 99(H) 94 - 98 % 05/22/2024 2:22 PM [facility] Base Excess, Arterial -5.5(L) -2 - 3 mmol/L 05/22/2024 2:22 PM [facility] HCO3, Arterial 20.0(L) 22 - 26 mmol/L 05/22/2024 2:22 PM [facility] Total Hemoglobin, Arterial, Whole Blood 9.9(L) 13.7 - 17.5 g/dL 05/22/2024 2:22 PM [facility] Hematocrit, Arterial 30.0(L) 40 - 51.0 % 05/22/2024 2:22 PM [facility] Sodium, Arterial 134(L) 136 - 145 mmol/L 05/22/2024 2:22 PM [facility] Potassium, Arterial 4.8 3.6 - 4.9 mmol/L 05/22/2024 2:22 PM [facility] Chloride, Whole Blood 102 97 - 107 mmol/L 05/22/2024 2:22 PM [facility] Glucose, Arterial 406(H) 74 - 99 mg/dL 05/22/2024 2:22 PM [facility] Ionized Calcium, Arterial 5.0 4.6 - 5.1 mg/dL 05/22/2024 2:22 PM [facility] Lactate, Arterial 4.0(H) 0.5 - 1.6 mmol/L 05/22/2024 2:22 PM [facility] Body Temperature 37.0 Celsius 05/22/2024 2:22 PM [facility] pH, Temp Corrected, Arterial 7.33(L) 7.35 - 7.45 05/22/2024 2:22 PM [facility] pCO2, Temp Corrected, Arterial 38 32 - 45 mm Hg 05/22/2024 2:22 PM [facility] pO2, Temp Corrected, Arterial 97 83 - 108 mm Hg 05/22/2024 2:22 PM [facility] Cell Plasterer ID Michelle Crowell 05/22/2024 2:22 PM EDT [facility] Blood, Arterial Whole blood specimen / Unknown 05/22/2024 2:20 PM EDT 05/22/2024 2:22 PM EDT us Kishan [address] MD LAB POINT OF CARE TE ST DOCKED DEVICE UNSOLICITED RESULTS Final Result [facility] [address] [place] [address] * PB ANESTHESIA NON-TIMED PROCEDURE PLACEHOLDER (05/22/2024 11:45 AM EDT) BSA 2.2 m2 CAR DO NOT SEND Anatomical Region Laterality Modality Other Narrative 05/22/2024 11:45 AM EDT Lynne Chan MD 05/22/2024 4:11 PM Procedure Performed: RAMBO General Procedure Information Diagnostic Indications for RAMBO: hemodynamic monitoring, other indication Other indication: CABG with aortic stenosis Physician Requesting Echo: Kishan St MD Location performed: OR Modalities: 2D only, color flow mapping, continuous wave Dopper and pulse wave doppler Consent given by: PatientIntubated Bite block placed Heart visualized Probe Insertion: Easy Probe Type: Multiplane Preanesthesia Checklist: Patient identified, IV checked, risks and benefits discussed, surgical consent, monitors and equipment checked and pre-op evaluation. Echocardiographic and Doppler Measurements Ventricles Right Ventricle: Cavity size normal. Hypertrophy not present. Thrombus not present. Global function normal. Left Ventricle: Cavity size normal. Hypertrophy present. Thrombus not present. Global Function normal. Ejection Fraction 55%. Ventricular Regional Function: Wall Motion Comments: No RWMA Valves Aortic Valve: Annulus normal. Stenosis mild. Leaflets thickened. Leaflet motions restricted. Mitral Valve: Annulus normal. Stenosis not present. Regurgitation +1. Leaflets normal. Leaflet motions normal. Tricuspid Valve: Annulus normal. Stenosis not present. Regurgitation +1. Leaflets normal. Leaflet motions normal. Pulmonic Valve: Annulus normal. Stenosis not present. Regurgitation +2. Leaflets normal. Other Valve Findings: Mild and AI. PG 23, MG 12 mmHg. WANDER 1.4cm3. Left and right CC partly fused. Thickened leaflets. Mild central AI jet, Vena contracta 0.25cm. Unable to obtain AI PHT. Aorta Ascending Aorta: Size normal. Dissection not present. Plaque thickness less than 3 mm. Mobile plaque not present. Aortic Arch: Size normal. Dissection not present. Plaque thickness less than 3 mm. Mobile plaque not present. Descending Aorta: Size normal. Dissection not present. Plaque thickness greater than 3 mm. Mobile plaque not present. Other Aortic Findings: Atheroma in descending aorta, largest measuring 0.6cm. Atria Right Atrium: Size normal. Spontaneous echo contrast not present. Thrombus not present. Tumor not present. Device not present. Left Atrium: Size normal. Spontaneous echo contrast not present. Thrombus not present. Tumor not present. Device not present. Left atrial appendage normal. Septa Atrial Septum: Intra-atrial septal morphology normal. Ventricular Septum: Intra-ventricular septum morphology normal. Other Findings Pericardium: normal Pleural Effusion: none Pulmonary Arteries: normal Pulmonary Venous Flow: normal Postprocedure Post Cardiac Surgery/Repair: Right ventricular post CPB function is preserved. Left ventricular post CPB function is preserved. All valve function preserved. Status: Aorta intact after decannulation. Information obtained during RAMBO exam relayed to the referring surgeon/physician. Anesthesia Information Performed Anesthesiologist Anesthesiologist: Lynne Chan MD Lynne Chan MD ANESTHESIA ORDERABLES Edite d Result - Final * NH AN CENTRAL LINE DOUBLE LUMEN, PB ANESTHESIA NON-TIMED PROCEDURE PLACEHOLDER, ANESTHESIA ULTRASOUND GUIDED, NH INSERT/PLACE FLOW DIRECT CATH (05/22/2024 9:59 AM EDT) [facility] Lynne Chan MD - 05/22/2024 9:59 AM EDT Lynne Chan MD 05/22/2024 11:08 AM Central Venous Line: A central venous line was placed in the OR for the following indication(s): central venous access and CVP monitoring. Sterility preparation included the following: provider hand hygiene performed prior to central venous catheter insertion, all 5 sterile barriers used (gloves, gown, cap, mask, large sterile drape) during central venous catheter insertion, antiseptic used during central venous catheter insertion and skin prep agent completely dried prior to procedure. The patient was placed in Trendelenburg position. Right internal jugular vein was prepped. The site was prepped with Chlorhexidine. A 9 Fr (size), 20 (length), introducer double lumen was placed. This catheter was an oximetric catheter. During the procedure, the following specific steps were taken: target vein identified, needle advanced into vein and blood aspirated and guidewire advanced into vein. Seldinger technique used Procedure performed using ultrasound guidance Sterile gel and probe cover used in ultrasound-guided central venous catheter insertion. Intravenous verification was obtained by ultrasound and venous blood return. Post insertion care included: all ports aspirated, all ports flushed easily, guidewire removed intact, Biopatch applied, line sutured in place and dressing applied. During the procedure the patient experienced: patient tolerated procedure well with no complications and pneumothorax. PA Catheter Placed A oximetric, 8 (size) Pulmonary Artery Catheter (PAC) was placed through the Introducer CVL in the right internal jugular vein. The PAC placement was confirmed by pressure tracing changes and RAMBO. The patient experienced the following events during the procedure: patient tolerated procedure well with no complications. Staffing Performed: Anesthesiologist Anesthesiologist: Lynne Chan MD Lynne Chan MD ANESTHESIA ORDERABLES Final Result * PB ANESTHESIA NON-TIMED PROCEDURE PLACEHOLDER (05/22/2024 9:50 AM EDT) Lynne Yuan MD - 05/22/2024 9:50 AM EDT Lynne Chan MD 05/22/2024 11:08 AM Arterial Line: An arterial line was placed. Procedure performed using surface landmarks in the OB for the following indication(s): continuous blood pressure monitoring and blood sampling needed. A 20 gauge (size), 1 and 3/4 inch (length), Arrow (type) catheter was placed into the Left radial artery and secured by tape. Seldinger technique used Staffing Performed: Resident Anesthesiologist: Lynne Chan MD Resident: Esvin Graham MD Lynne Chan MD ANESTHESIA ORDERABLES Final Result * NH AN ELECTIVE ENDOTRACHEAL AIRWAY, PB ANESTHESIA PLACEHOLDER (05/22/2024 9:04 AM EDT) Lynne Yuan MD - 05/22/2024 9:04 AM EDT Lynne Chan MD 05/22/2024 11:08 AM Airway Date/Time: 05/22/2024 9:04 AM Reason: elective Airway not difficult General Information and Staff Patient location during procedure: OR Anesthesiologist: Lynne Chan MD Resident: Esvin Graham MD Performed: Resident Patient Condition Indications for airway management: anesthesia Patient position: sniffing Final Airway Details Final airway type: endotracheal airway Successful airway: ETT Cuffed: yes Successful intubation technique: direct laryngoscopy Adjuncts used in placement: intubating stylet Endotracheal tube insertion site: oral Blade: Perico ETT size (mm): 8.0 Cormack-Lehane Classification: grade I - full view of glottis Placement verified by: chest auscultation and capnometry Measured from: lips ETT to lips (cm): 23 Additional Comments Atraumatic. No change to dentition. Lynne Chan MD ANESTHESIA ORDERABLES Final Result * Type and Screen (05/22/2024 6:31 AM EDT) ABO/Rh O Positive 05/22/2024 6:03 AM EDT [facility] Antibody Screen Negative 05/22/2024 6:03 AM EDT [facility] Specimen Expiration 05/25/2024 23:59 05/22/2024 6:03 AM EDT [facility] Blood Venous blood specimen / Unknown Venipuncture / Unknown 05/22/2024 6:31 AM EDT 05/22/2024 6:[address] MD LAB BLOOD BANK TEST ORDERABL ES Final Result Performing Organization Address City/State/[facility] Co de Phone Number BLOOD BANK [address] [place] [address], * Type & Screen, 30 Days (05/09/2024 11:59 AM EDT) ABO/Rh O Positive 05/09/2024 11:48 AM EDT [facility] Antibody Screen Negative 11:48 AM EDT [facility] Specimen Expiration 05/12/2024 23:59 05/09/2024 11:48 AM EDT BLOOD BANK 30 Day Eligibility See Comment 05/09/2024 11:48 AM EDT [facility] Comment:This specimen is christal gible for a Type and Screen for up to 30 days from collection. On the day of surgery/procedure, please order and collect a new ABO/Rh specimen to confirm the blood type and to re-verify the patient's eligibility for a 30 day Type and Screen. Refer to policy A08-125 Blood or Blood Product Transfusions for more detailed instructions. Blood Venous blood specimen / Unknown Venipuncture / Unknown 05/09/2024 11:59 AM EDT 05/09/2024 11:59 AM EDT us [address]an [address] MD LAB BLOOD BANK TEST ORDERABL ES Final Result BLOOD BANK [address] [place] [address], * (ABNORMAL) CBC and Differential (05/09/2024 11:59 AM EDT) WBC Count 12.80(H) 3.70 - 10.30 10*3/uL LAB HEMATOLOGY METHOD 05/09/2024 1:36 PM EDT [facility] RBC Count 6.51(H) 4.60 - 6.10 10*6/uL LAB HEMATOLOGY METHOD 05/09/2024 1:36 PM EDT [facility] HGB 17.3 13.7 - 17.5 g/dL LAB HEMATOLOGY METHOD 05/09/2024 1:36 PM EDT [facility] HCT 52.0(H) 40.0 - 51.0 % LAB HEMATOLOGY METHOD 05/09/2024 1:36 PM EDT [facility] Platelet Count 361 155 - 369 10*3/uL LAB HEMATOLOGY METHOD 05/09/2024 1:36 PM EDT [facility] MCV 80 79 - 98 fL LAB HEMATOLOGY METHOD 05/09/2024 1:36 PM EDT [facility] MCH 26.6 26.0 - 32.0 pg LAB HEMATOLOGY METHOD 05/09/2024 1:36 PM EDT [facility] MCHC 33.3 30.7 - 35.5 g/dL LAB HEMATOLOGY METHOD 05/09/2024 1:36 PM EDT [facility] RDW 13.8 11.5 - 14.5 % LAB HEMATOLOGY METHOD 05/09/2024 1:36 PM EDT [facility] MPV 9.7 8.8 - 12.5 fL LAB HEMATOLOGY METHOD 05/09/2024 1:36 PM EDT [facility] nRBC 0.0 <=0.0 per 100 WBCs LAB HEMATOLOGY METHOD 05/09/2024 1:36 PM EDT [facility] Differential Type Automated LAB HEMATOLOGY METHOD 05/09/2024 1:36 PM EDT [facility] Neutrophils % 62 % LAB HEMATOLOGY METHOD 05/09/2024 1:36 PM EDT [facility] Lymphocytes % 28 % LAB HEMATOLOGY METHOD 05/09/2024 1:36 PM EDT [facility] Monocytes % 6 % LAB HEMATOLOGY METHOD 05/09/2024 1:36 PM EDT [facility] Eosinophils % 3 % LAB HEMATOLOGY METHOD 05/09/2024 1:36 PM EDT [facility] Basophils % 1 % LAB HEMATOLOGY METHOD 05/09/2024 1:36 PM EDT [facility] Immature Granulocytes % 0 % LAB HEMATOLOGY METHOD 05/09/2024 1:36 PM EDT [facility] Neutrophils Absolute 7.93(H) 1.60 - 6.10 10*3/uL LAB HEMATOLOGY METHOD 05/09/2024 1:36 PM EDT [facility] Lymphocytes Absolute 3.56 1.20 - 3.90 10*3/uL LAB HEMATOLOGY METHOD 05/09/2024 1:36 PM EDT [facility] Monocytes Absolute 0.78 0.30 - 0.90 10*3/uL LAB HEMATOLOGY METHOD 05/09/2024 1:36 PM EDT [facility] Eosinophils Absolute 0.39 0.00 - 0.50 10*3/uL LAB HEMATOLOGY METHOD 05/09/2024 1:36 PM EDT [facility] Basophils Absolute 0.10 0.00 - 0.10 10*3/uL LAB HEMATOLOGY METHOD 05/09/2024 1:36 PM EDT [facility] Immature Granulocytes Absolute 0.04 0.00 - 0.06 10*3/uL LAB HEMATOLOGY METHOD 05/09/2024 1:36 PM EDT [facility] Blood Venous blood specimen / Unknown Venipuncture / Unknown 05/09/2024 11:59 AM EDT 05/09/2024 11:59 AM EDT Narrative [facility] - 05/09/2024 1:36 PM EDT Therapeutic decision making should be based on absolute values, rather than percentages. [facility]b [facility] LAB BLOOD ORDERABLES Final Result Performing Organization Address [facility]/ZIP Co de Phone Number [facility] [address] [place] [address] * (ABNORMAL) Hemoglobin A1c (05/09/2024 11:59 AM EDT) Hemoglobin A1c 7.6(H) <5.7 % 05/09/2024 1:41 PM EDT [facility] Blood Venous blood specimen / Unknown Venipuncture / Unknown 05/09/2024 11:59 AM EDT 05/09/2024 11:59 AM EDT Narrative [facility] - 05/09/2024 1:41 PM EDT HA1C Interpretive Data: Diagnosis of Diabetes: Diabetic > or = 6.5% Pre-diabetic 5.7 to 6.4% Non-diabetic < or = 5.6% Glycemic Targets for Type I and Type II Diabetics: Non- Adults <7.0% Adults <6.0% Children and Adolescents <7.5% Source: [place] [employer]. Standards of medical care in diabetes,2017. Diabetes Care.2017:40 (suppl 1):S1-S135. HbA1c assay performed by an ion-exchange chromatography method that is certified traceable to the DCCT. [facility]b [facility] LAB BLOOD ORDERABLES Final Result Performing Organization Address City/[facility]/ZIP Co de Phone Number [facility] [address] [place] [address] * (ABNORMAL) Comprehensive metabolic panel (05/09/2024 11:59 AM EDT) Glucose, Plasma 162(H) 74 - 99 mg/dL 05/09/2024 2:18 PM EDT [facility] BUN, Plasma 13 7 - 21 mg/dL 05/09/2024 2:18 PM EDT [facility] Creatinine, Plasma 1.03 0.70 - 1.20 mg/dL 05/09/2024 2:18 PM EDT [facility] BUN/Creatinine Ratio 13 05/09/2024 2:18 PM EDT [facility] Sodium, Plasma 134(L) 136 - 145 mmol/L 05/09/2024 2:18 PM EDT [facility] Potassium, Plasma 3.8 3.6 - 4.9 mmol/L 05/09/2024 2:18 PM EDT [facility] Chloride, Plasma 94(L) 97 - 107 mmol/L 05/09/2024 2:18 PM EDT [facility] CO2, Plasma 25 22 - 29 mmol/L 05/09/2024 2:18 PM EDT [facility] Anion Gap 15 6 - 16 mmol/L 05/09/2024 2:18 PM EDT [facility] Total Calcium, Plasma 10.3(H) 8.9 - 10.2 mg/dL 05/09/2024 2:18 PM EDT [facility] Total Protein 7.8 6.3 - 7.9 g/dL 05/09/2024 2:18 PM EDT [facility] Albumin, Plasma 4.5 3.5 - 5.2 g/dL 05/09/2024 2:18 PM EDT [facility] AST, Plasma 33 10 - 50 U/L 05/09/2024 2:18 PM EDT [facility] ALT, Plasma 57(H) 10 - 50 U/L 05/09/2024 2:18 PM EDT [facility] Alkaline Phosphatase, Plasma 176(H) 40 - 115 U/L 05/09/2024 2:18 PM EDT [facility] Total Bilirubin, Plasma 0.5 0.2 - 1.1 mg/dL 05/09/2024 2:18 PM EDT [facility] eGFRcr 83.7 mL/min/1.7 3m*2 05/09/2024 2:18 PM EDT [facility] Comment:Reported eGFRcr in m L/min/1.73m2 is based the CKD-EPI 2020 equation that does not use a race coefficient. Blood Venous blood specimen / Unknown Venipuncture / Unknown 05/09/2024 11:59 AM EDT 05/09/2024 11:59 AM EDT [facility] BLOOD ORDERABLES Final Result [facility] [address] [place] [address] from Last 3 Months Insurance [employer]THE[employer] Advance Directives * Full Code (Latest Code Status on File) Date Activated Date Inactivated Comments 05/22/2024 3:42 PM 05/30/2024 4:37 PM Care Teams Business Attorney Relationship Specialty Start Date End Date Lennie Troy APRN [address] [place] [address] PCP - General 05/03/24 [place] Dunham MD [facility] [address] [address] Referring Physician 06/21/24
--- OUTSIDE RECORDS SUMMARY | 2024-08-08 09:06 | XMS_ITS | Encounter Summary ---
Author Organization [facility] Address [address] [place] [address] Care Team Providers Care Plate Filler Name Role Phone WoodrowLennie bae INGRID Primary Care Provider [phone] Encounter Details Date Type Department Care Team (Latest Contact Info) Description 06/20/2024 Travel Social History Tobacco Use Types Packs/Day [...] any time in the past 12 m [facility], were you homeless or living in a alf (including now)? No 05/23/2024 Utilities Answer Date [...] EDT Office Visit [facility] [address] [place] [address] Eloise Jaramillo PA [address] [facility] [address] [place] [address] documented as of this encounter Visit Diagnoses Not on filedocumented in this encounter Additional Health Concerns Assessment Noted Time A fall risk assessment has been complete d for the patient 06/20/2024 2:47 PM EDT A Body Mass Index follow-up plan has been documented for the patient 06/29/2024 9:37 AM EDT documented as of this encounter Care Teams Plate Filler Relationship Specialty Start Date End Date Lennie Troy APRN [facility] [place] [address] PCP - General 05/03/24 documented as of this encounter
--- OUTSIDE RECORDS SUMMARY | 2024-08-08 09:06 | XMS_ITS | Encounter Summary ---
Author Organization [facility] Address [address] [place] [address] Care Team Providers Care Nature Photographer Name Role Phone Lennie Troy APRN Primary Care Provider [phone] West Dunham MD Unavailable [phone] Reason for Visit * Reason Comments Med Change Request Encounter Details Date Type Department Care Team (Late st Contact Info) Description 07/04/2024 Refill [facility] [address] [place] [address] Eloise Jaramillo PA [address] [facility] [address] [place] [address] Type 2 diabetes mellitus with hyperglycemia, with long-term current use of insulin ([facility]) Social History Tobacco Use Types Packs/Day Years [...] any time in the past 12 m [facility], were you homeless or living in [...] on file documented as of this encounter Miscellaneous Notes * Telephone Encounter - Sharon Mccauley PharmD - 07/04/2024 9:33 AM EDT 1 medication(s) has been approved per protocol. documented in this encounter Plan of Treatment Upcoming Encounters Date Type Department Care Team (Late st Contact Info) Description 09/20/2024 12:20 PM EDT Office Visit [facility]ology [address] [place] [id number] Eloise Jaramillo PA [address] [place] [address] documented as of this encounter Visit Diagnoses Diagnosis Type 2 diabetes mellitus with hyperglycemia, with long-term current use of insulin ([facility]) documented in this encounter Additional Health Concerns Assessment Noted Time A fall risk assessment has been complete d for the patient 06/20/2024 2:47 PM EDT A Body Mass Index follow-up plan has been documented for the patient 06/29/2024 9:37 AM EDT documented as of this encounter Care Teams Nature Photographer Relationship Specialty Start Date End Date Lennie Troy APRN [address] [place] [address] PCP - General 05/03/24 West Dunham MD [address] [place] [address] Referring Physician 06/21/24 documented as of this encounter
--- NOTE | 2024-08-08 09:15 | CA_ITS ---
APPROVED REPORT EXAM: Comprehensive 2D, Doppler, and color-flow Echocardiogram Procedures Rn: Lali Pop CRT Ht: 6 ft 1 in Wt: 204lbs BSA: 2.17 BP: 129/78 mmHg Indications: LV FUNCTION S/P CABG 05/22/24 COPD, Diabetes, Hyperlipidemia, Hypertension/HDD, SMOKER 2D Dimensions LA Volume 26.50 mL LA Volume Index 11.90 mL/m2 (M/F) 16-34 M-Mode Dimensions RVDd 3.95 cm (0.9-2.6) LA Diam 3.61 cm (1.9-4.0) LVDd 4.47 cm (3.5-5.7) LVDs 3.26 cm (3.5-5.7) IVSd 2.30 cm (0.6-1.1) PWd 1.21 cm (0.6-1.1) EF (Teich) 53.00% FS 27.10% EDV (Teich) 91.00 mL TAPSE 1.01 (<1.7) ESV (Teich) 42.80 mL LV Diastology E Decel Time 207 (160-240 msec) E/A Ratio 0.91 MED A' 13.50 cm/s LAT A' 14.80 cm/s Aortic Valve WANDER Index 0.72 cm2/m2 AoV Peak Hiren. 204.0 (50-130 cm/s) AI PHT 553.00 ms AO Peak GR. 16.70 mmHg AO Mean GR. 9.90 (<5 mmHg) AO VTI 41.7 (18-25 cm) WANDER (VTI) 1.60 (2.5-4.5 cm2) Mitral Valve MV E Max Hiren. 87.0 (40-130 cm/s) MV A Velocity 95.0 (40-130 cm/s) E/A Ratio 0.91 MV PHT 61.0 ms Pulmonary Valve PV Peak Velocity 224.0 (50-150 cm/s) Tricuspid Valve TR P. Velocity 211.00 cm/s RAP Estimate 10.00 mmHg RVSP 27.90 mmHg Left Ventricle The left ventricle is normal size. The left ventricular systolic function is normal. The left ventricular ejection fraction is within the normal range. There is increased overall thickness. There is normal LV segmental wall motion. Transmitral Doppler flow pattern suggests impaired LV relaxation. LVEF is 55%. Right Ventricle The right ventricle is normal size. The right ventricular systolic function is normal. Atria The left atrium size is normal. The right atrium size is normal. There is no Doppler evidence of interatrial shunt. Aortic Valve The aortic valve is mildly thickened. Mild aortic stenosis. WANDER by continuity equation is 1.7 cm???. Peak velocity 2.1 m/s. Mean AV gradient 11 mmHg. Max AV gradient 17 mmHg. Mild aortic regurgitation. Mitral Valve The mitral valve leaflets are mildly thickened. No evidence of mitral valve stenosis. Trace mitral regurgitation. Tricuspid Valve Tricuspid valve is grossly normal in structure and function. Trace tricuspid regurgitation. There is insufficient TR jet to estimate RVSP. Pulmonic Valve The pulmonary valve is normal in structure. Mild pulmonic regurgitation. Great Vessels The aortic root is normal in size. IVC is normal in size and collapses >50% with inspiration. Pericardium There is no pericardial effusion. Other Information Study Quality: Fair Conclusion Normal biventricular systolic function. Mild AI. Mild (WANDER by continuity equation is 1.7 cm???. Peak velocity 2.1 m/s. Mean AV gradient 11 mmHg. Max AV gradient 17 mmHg). Mild PI. Electronically signed by : Eunice Leos MD 08/14/2024 12:46:02
== END 2024-08-08 23:59 | disposition home or self-care (01) ==
LOC: RT 09:02
PROVIDERS: PCP Nurse Practitioner; Visit Provider Nurse Practitioner Family
DX: I08.8 Other rheumatic multiple valve diseases (principal); I10 Essential (primary) hypertension; I25.10 Atherosclerotic heart disease of native coronary artery without angina pectoris; J44.9 Chronic obstructive pulmonary disease, unspecified; E78.5 Hyperlipidemia, unspecified; F17.200 Nicotine dependence, unspecified, uncomplicated; E11.9 Type 2 diabetes mellitus without complications; Z95.1 Presence of aortocoronary bypass graft
CPT/HCPCS: 93306

== ENCOUNTER 2024-08-27 13:00 | Outpatient (CLI) | payer BC, SELFPAY ==
[2024-08-27 15:37] LABS: Alanine Aminotransferase 30 U/L (12-78); Albumin Level 4.3 g/dl (3.5-5.0); Albumin/Globulin Ratio 1.5 (1.1-1.8); Alkaline Phosphatase 131 U/L (38-126); Anion Gap 21.2 mEq/L (5-15); Aspartate Amino Transferase 43 U/L (17-59); Bilirubin,Total 0.6 mg/dl (0.2-1.3); Blood Urea Nitrogen 10 mg/dl (9-20); Calcium 9.8 mg/dl (8.4-10.2); Carbon Dioxide 22 mmol/L (22.0-30.0); Chloride 98 mmol/L (98-107); Cholesterol 230 mg/dl (140-200); Creatinine,Serum 0.80 mg/dl (0.66-1.25); Estimated Glomerular Filt Rate 99 ml/min (>60); GFR (African American) 120 ML/MIN (>60); Globulin 2.9 g/dL (1.3-3.2); Glucose 158 mg/dl (74-100); HDL Cholesterol 26 mg/dl (40-60); Potassium 4.2 mmoL/L (3.5-5.1); Sodium 137 mmol/L (136-145); Total Protein,Serum 7.2 g/dl (6.3-8.2); Triglycerides 470 mg/dl (30-150)
[2024-08-27 15:52] LABS: 25-OH Vitamin D, Total 45.9 ng/mL (30-100)
[2024-08-27 15:55] LABS: Hemoglobin A1C 8.3 % (4.0-6.0)
--- OUTSIDE RECORDS SUMMARY | 2024-08-28 10:33 | XMS_ITS | Clinical Summary ---
Author Organization [facility] Primary Care Address [address] [place] [address] Phone Care Team Providers Care Button And Buckle Maker Name Role Phone Jaja, Mary Matta Primary Care Provider [phone] Allergies No known active allergies Medications Melatonin [...] CHONDROPLASTY ; Surgeon: Teodoro Dockery MD; [facility]; Service: Orthopedics Medical History Medical History Date Comments Allergy GERD (gastroesophageal reflux disease) Asthma slight Hypertension [place] (myocardial infarction) (HCC) 03/2005 Hyperlipidemia Ulcer in [...] Td or Tdap) 10/25/2020 10/25/2010 COVID-19 Vaccine (1 - 2023-2 5 season) 2023 Influenza Vaccine (#1) 2024 Meningococcal B Vaccine Aged Out No l onger eligible based on patient's age to complete this topic Insurance [facility] Care Teams Button And Buckle Maker Relationship Specialty Start Date End Date Mary Wilkinson [address] [place] [address] [address] SUSAN GANDARA [address] PCP - General Family Medicine 03/17/14
--- OUTSIDE RECORDS SUMMARY | 2024-08-28 10:33 | XMS_ITS | Encounter Summary ---
Author Organization [facility] Address [address] [place] [address] Care Team Providers Care Tire Service Supervisor Name Role Phone Lennie Troy APRN Primary Care Provider [phone] [place] MD Unavailable [phone] Reason for Visit * Reason Comments Med Change Request Encounter Details Date Type Department Care Team (Late st Contact Info) Description 07/04/2024 Refill [facility] Endocrinology [address] [place] [address] Eloise Jaramillo PA [address] [facility] [address] [place] [address] Type 2 diabetes mellitus with hyperglycemia, with long-term current use of insulin ([facility]) Social History Tobacco Use Types Packs/Day Years [...] any time in the past 12 m [facility], were you homeless or living in a [...] Description 09/20/2024 12:20 PM EDT Office Visit [facility] Endocrinology [address] [place] [phone] Eloise Jaramillo PA [address] [place] [address] documented as of this encounter Visit Diagnoses Diagnosis Type 2 diabetes mellitus with hyperglycemia, with long-term current use of insulin ([facility]) documented in this encounter Additional Health Concerns Assessment Noted Time A fall risk assessment has been complete d for the patient 06/20/2024 2:47 PM EDT A Body Mass Index follow-up plan has been documented for the patient 06/29/2024 9:37 AM EDT documented as of this encounter Care Teams Tire Service Supervisor Relationship Specialty Start Date End Date Lennie Troy APRN [address] [place] [address] PCP - General 05/03/24 [place] MD [address] [place] [address] Referring Physician 06/21/24 documented as of this encounter
--- OUTSIDE RECORDS SUMMARY | 2024-08-28 10:33 | XMS_ITS | Clinical Summary ---
Author Organization [facility] Address [address] [place] [address] Care Team Providers Care Tool Coordinator Name Role Phone Lennie Troy APRN Primary Care Provider [place] MD Unavailable [phone] Allergies No known active allergies Medications albuterol [...] Information Patient not taking.Reported on 06/20/2024 Tiotropium [place] Monohydrate (Spiriva Respimat) 2.5 MCG/ACT inhaler Inhale [...] hyperglycemia, with long-term current use of insulin ([facility]) Take 1 tablet by mouth daily. 90 tablet 1 5 12/11/19 25 Active insulin glargine (Lantus SoloStar) 100 UNIT/ML injection penIndications:T ype 2 diabetes mellitus with hyperglycemia, with long-term current use of insulin ([facility]) Inject 36 Units under the skin nightly. 15 mL 4 5 12/11/19 25 Active insulin lispro 100 UNIT/ML injection penIndications:T ype 2 diabetes mellitus with hyperglycemia, with long-term current use of insulin ([facility]) Inject 10 Units under the skin [...] hyperglycemia, with long-term current use of insulin ([facility]) Change every 10 days. 200 each 5 Active pen needle, diabetic 31G X 5 MM miscIndications: Type 2 diabetes mellitus with hyperglycemia, with long-term current use of insulin ([facility]) Use as directed with insulin pen. 100 each 5 Active BD [employer] miscIndications: Type 2 diabetes mellitus with hyperglycemia, with long-term current use of insulin ([facility]) Use to dispose of insulin pen needles up to 4x daily. 1 each 5 Active metFORMIN (Glucophage) 500 MG tabletIndication s:Type 2 diabetes mellitus with hyperglycemia, with long-term current use of insulin ([facility]) TAKE 2 TABLETS BY MOUTH 2 TIMES [...] Type Department Care Team Description 07/04/2024 Refill [facility] Endocrinology [address] [place] [address] Eloise Jaramillo PA Type 2 diabetes mellitus with hyperglycemia, with long-term current use of insulin ([facility]) 06/20/2024 2:40 PM EDT Office Visit [facility] Cardiothoracic [address], [address] [place] [phone] MD Coronary artery disease involving [place] coronary artery of [place] heart without angina pectoris (Primary Dx) 06/20/2024 2:13 PM EDT - 06/20/2024 11:59 PM EDT Hospital Encounter [facility] [address], [address] [place] [address] Coronary artery disease involving [place] coronary artery of [place] heart without angina pectoris Discharge Disposition: Home or Self Care 06/20/2024 Travel 06/13/2024 2:40 PM EDT [facility] [address] [place] [address] Eloise Jaramillo PA Type 2 diabetes mellitus with hyperglycemia, with long-term current use of insulin ([facility]) (Primary Dx); Type 2 diabetes mellitus with hyperglycemia, unspecified whether termite control representative insulin use ([facility]) 06/13/2024 Travel 06/08/2024 Travel 05/31/2024 Telephone [facility] [address] [place] [address] Yani Dolan Rafa 05/30/2024 Travel 05/29/2024 Travel 05/22/2024 5:24 AM EDT - 05/30/2024 2:37 PM EDT Hospital Encounter [facility] [address] [place] [address] MD Type 2 diabetes mellitus with hyperglycemia, unspecified whether senior care insulin use ([facility]) (Primary Dx); Electrolyte abnormality; Post-op pain; On mechanically assisted ventilation ([facility]); NSTEMI (non-ST elevated myocardial infarction) ([facility]); S/P CABG x 4; Coronary artery disease involving [place] coronary artery of [place] heart without angina pectoris; Type 2 diabetes mellitus with other specified complication, without long-term current use of insulin ([facility]); Chronic obstructive pulmonary disease, unspecified COPD type ([facility]); Hyperlipidemia with target LDL less than 100; Primary hypertension; Gastroesophageal reflux disease without esophagitis; Coronary artery disease of [place] artery of [place] heart with stable angina pectoris ([facility]); On supplemental oxygen by nasal cannula; Cardiac volume overload; Anemia, unspecified type; Leukocytosis, unspecified type; Type 2 diabetes mellitus with other specified complication, with long-term current use of insulin ([facility]); Atrial fibrillation with rapid ventricular response ([facility]); Coronary artery disease involving [place] mountain heart, unspecified vessel or lesion type, unspecified whether angina present Discharge Disposition: Home or Self Care from Last 3 Months Immunizations Immunization Administration [...] any time in the past 12 m [facility], were you homeless or living in a retirement (including now)? No 05/23/2024 Utilities Answer Date Recorded In the past 12 months has e electric, gas, oil, or water company [...] 12:20 PM EDT Office Visit [facility] Endocrinology [address] [place] [address] Eloise Jaramillo PA [address] [address] Health Maintenance Due Date Last Done [...] (2 - Td or Tdap) 10/25/2020 10/25/2010 [id number] Vaccine (4 - season) 2023 01/25/2021, 05/06/2020, 04/08/2020 FIT-DNA 05/18/2024 05/18/2021 [facility]-Colorectal Cancer Screening 05/18/2024 [facility]-Diabetes: Hemoglobin A1C 08/08/2024 05/09/2024 [facility]-Influenza Vaccine (#1) 2024 [facility]- SDOH Screenings 11/22/2024 [facility]-Adult SDOH [...] 2:25 PM EDT Coronary artery disease involving [place] coronary artery of [place] heart without angina pectoris CBC W/O DIFFERENTIAL Routine 06/20/2024 2:06 PM EDT Coronary artery disease involving [place] coronary artery of [place] heart without angina pectoris BASIC METABOLIC PANEL, PLASMA Routine 06/20/2024 2:06 PM EDT Coronary artery disease involving [place] coronary artery of [place] heart without angina pectoris POCT GLUCOSE METER [...] W/O DIFFERENTIAL Routine 05/29/2024 2:16 AM EDT HEMOGLOBIN A1C Routine 05/09/2024 11:59 AM EDT Coronary artery disease involving [place] coronary artery of [place] heart without angina pectoris from Last 3 Months or Most Recently Relevant to Health Maintenance Results * XR Chest 2 Views (06/20/2024 2:25 PM EDT) Only the most recent of2 resultswithin the time period is included. Anatomical [...] 2:06 PM EDT) Only the most recent of3 resultswithin the time period is included. WBC Count 10.02 3.70 - 10.30 10*3/uL LAB HEMATOLOGY METHOD 06/20/2024 4:11 PM EDT [facility] RBC Count 4.96 4.60 - 6.10 10*6/uL LAB HEMATOLOGY METHOD 06/20/2024 4:11 PM EDT [facility] HGB 12.0(L) 13.7 - 17.5 g/dL LAB HEMATOLOGY METHOD 06/20/2024 4:11 PM EDT [facility] HCT 39.7(L) 40.0 - 51.0 % LAB HEMATOLOGY METHOD 06/20/2024 4:11 PM EDT [facility] Platelet Count 430(H) 155 - 369 10*3/uL LAB HEMATOLOGY METHOD 06/20/2024 4:11 PM EDT [facility] MCV 80 79 - 98 fL LAB HEMATOLOGY METHOD 06/20/2024 4:11 PM EDT [facility] MCH 24.2(L) 26.0 - 32.0 pg LAB HEMATOLOGY METHOD 06/20/2024 4:11 PM EDT [facility] MCHC 30.2(L) 30.7 - 35.5 g/dL LAB HEMATOLOGY METHOD 06/20/2024 4:11 PM EDT [facility] RDW 14.1 11.5 - 14.5 % LAB HEMATOLOGY METHOD 06/20/2024 4:11 PM EDT [facility] MPV 8.9 8.8 - 12.5 fL LAB HEMATOLOGY METHOD 06/20/2024 4:11 PM EDT [facility] nRBC 0.0 <=0.0 per 100 WBCs LAB HEMATOLOGY METHOD 06/20/2024 4:11 PM EDT [facility] Blood Venous blood specimen / Unknown Venipuncture / Unknown 06/20/2024 2:06 PM EDT 06/20/2024 2:06 PM EDT us Kishan St MD LAB BLOOD ORDERABLES Final R esult [facility] [address] [place] [address] * (ABNORMAL) Basic Metabolic Panel, Plasma (06/20/2024 2:06 PM EDT) Only the most recent of3 resultswithin the time period is included. Glucose, Plasma 146(H) 74 - 99 mg/dL 06/20/2024 4:21 PM EDT [facility] BUN, Plasma 16 7 - 21 mg/dL 06/20/2024 4:21 PM EDT [facility] Creatinine, Plasma 1.11 0.70 - 1.20 mg/dL 06/20/2024 4:21 PM EDT [facility] BUN/Creatinine Ratio 14 06/20/2024 4:21 PM EDT [facility] Sodium, Plasma 135(L) 136 - 145 mmol/L 06/20/2024 4:21 PM EDT [facility] Potassium, Plasma 4.2 3.6 - 4.9 mmol/L 06/20/2024 4:21 PM EDT [facility] Chloride, Plasma 99 97 - 107 mmol/L 06/20/2024 4:21 PM EDT [facility] CO2, Plasma 25 22 - 29 mmol/L 06/20/2024 4:21 PM EDT [facility] Anion Gap 11 6 - 16 mmol/L 06/20/2024 4:21 PM EDT [facility] Total Calcium, Plasma 10.1 8.9 - 10.2 mg/dL 06/20/2024 4:21 PM EDT [facility] eGFRcr 76.5 mL/min/1.7 3m*2 06/20/2024 4:21 PM EDT [facility] Comment:Reported eGFRcr in m L/min/1.73m2 is based the CKD-EPI 2020 equation that does not use a race coefficient. Blood Venous blood specimen / Unknown Venipuncture / Unknown 06/20/2024 2:06 PM EDT 06/20/2024 2:06 PM EDT us Kishan St MD LAB BLOOD ORDERABLES Final R esult [facility] [address] [place] [address] * (ABNORMAL) POCT glucose meter (05/30/2024 12:31 PM EDT) Only the most recent of7 resultswithin the time period is included. POCT Glucose 153(H) 74 - 99 mg/dL 05/30/2024 12:32 PM EDT [facility] Comment:Accuracy of a glucos e result [...] Comment 05/30/2024 12:32 PM EDT [facility] Mails Supervisor ID Lupe Keane 05/31/19 12:32 PM EDT [facility] Device ID [id number] 05/30/2024 12:32 PM EDT [facility] Specimen Type POC Capillary 05/30/2024 12:32 PM EDT [facility] Blood Capillary blood specimen / Unknown 05/30/2024 12:31 PM EDT 05/30/2024 12:32 PM EDT us Kishan St MD LAB POINT OF CARE TE ST DOCKED DEVICE UNSOLICITED RESULTS Final Result [facility] [address] [place] [address] * XR Chest 1 View (05/30/2024 4:55 AM EDT) Anatomical Region Laterality Modality Chest Digital [...] Kishan Ortega MD on 05/30/2024 9:39 AM us Elian HIGH IMG XR PROCEDURES Final Resu lt * Magnesium (05/30/2024 2:04 AM EDT) Only the most recent of2 resultswithin the time period is included. Magnesium, Plasma 1.9 1.9 - 2.4 mg/dL 05/30/2024 2:40 AM EDT [facility] Blood Venous blood specimen / Unknown Venipuncture / Unknown 05/30/2024 2:04 AM EDT 05/30/2024 2:11 AM EDT Sb H[facility] LAB BLOOD ORDERABLES Final Result Performing Organization Address [facility] de Phone Number [facility] [address] [place] [address] * (ABNORMAL) Hemoglobin A1c (05/09/2024 11:59 AM EDT) Hemoglobin A1c 7.6(H) <5.7 % 05/09/2024 1:41 PM EDT [facility] Blood Venous blood specimen / Unknown Venipuncture / Unknown 05/09/2024 11:59 AM EDT 05/09/2024 11:59 AM EDT Narrative [facility] - 05/09/2024 1:41 PM EDT HA1C Interpretive Data: Diagnosis of Diabetes: Diabetic > or = 6.5% Pre-diabetic 5.7 to 6.4% Non-diabetic < or = 5.6% Glycemic Targets for Type I and Type II Diabetics: Non- Adults <7.0% Adults <6.0% Children and Adolescents <7.5% Source: [place] [employer]. Standards of medical care in diabetes,2017. Diabetes Care.2017:40 (suppl 1):S1-S135. HbA1c assay performed by an ion-exchange chromatography method that is certified traceable to the DCCT. Sb HIGH LAB BLOOD ORDERABLES Final Result Performing Organization Address [facility] Co de Phone Number [facility] [address] [place] [address] from Last 3 Months or Most Recently Relevant to Health Maintenance Insurance [employer] Advance Directives * Full Code (Latest Code Status on File) Date Activated Date Inactivated Comments 05/22/2024 3:42 PM 05/30/2024 4:37 PM Care Teams Tool Coordinator Relationship Specialty Start Date End Date Lennie Troy APRN [facility] [place] [address] PCP - General 05/03/24 [place] MD [address] [place] [address] Referring Physician 06/21/24
== END 2024-08-27 23:59 | disposition home or self-care (01) ==
LOC: LAB.DROPOF 08-28 10:31
PROVIDERS: PCP Nurse Practitioner; Visit Provider Nurse Practitioner
DX: E11.9 Type 2 diabetes mellitus without complications (principal); E55.9 Vitamin D deficiency, unspecified; I10 Essential (primary) hypertension; K21.9 Gastro-esophageal reflux disease without esophagitis
CPT/HCPCS: 80053; 80061; 82043; 82306; 82570; 83036

== ENCOUNTER 2024-10-03 11:39 | Outpatient (CLI) | payer BC, SELFPAY ==
--- OUTSIDE RECORDS SUMMARY | 2024-10-04 13:54 | XMS_ITS | Clinical Summary ---
Author Organization [facility] Address [address] [place] [address] Phone Care Team Providers Care Spine Nurse Name Role Phone Jaja, Mary Matta Primary Care Provider [phone] Allergies No known active allergies Medications Melatonin [...] CHONDROPLASTY ; Surgeon: Teodoro Dockery MD; [facility]; Service: Orthopedics Medical History Medical History Date Comments Allergy GERD (gastroesophageal reflux disease) Asthma slight Hypertension [place] (myocardial infarction) (HCC) 03/2005 Hyperlipidemia Ulcer in [...] patient's age to complete this topic [facility] Care Teams Spine Nurse Relationship Specialty Start Date End Date Mary Wilkinson [address] [place] [address] [address] S[place] GAND[place] [id number] PCP - General Family Medicine 03/17/14
--- OUTSIDE RECORDS SUMMARY | 2024-10-04 13:54 | XMS_ITS | Clinical Summary ---
Author Organization [facility] Address [address] [place] [address] Care Team Providers Care Insurance Agency Manager Name Role Phone Lennie Troy APRN Primary Care Provider [place] MD Unavailable [phone] Allergies No known active allergies Medications albuterol [...] Information Patient not taking.Reported on 06/20/2024 Tiotropium [place] Monohydrate (Spiriva Respimat) 2.5 MCG/ACT inhaler Inhale [...] hyperglycemia, with long-term current use of insulin ([facility]) Take 1 tablet by mouth daily. 90 tablet 1 5 12/11/19 25 Active insulin glargine (Lantus SoloStar) 100 UNIT/ML injection penIndications:T ype 2 diabetes mellitus with hyperglycemia, with long-term current use of insulin ([facility]) Inject 36 Units under the skin nightly. 15 mL 4 5 12/11/19 25 Active insulin lispro 100 UNIT/ML injection penIndications:T ype 2 diabetes mellitus with hyperglycemia, with long-term current use of insulin ([facility]) Inject 10 Units under the skin 3 [...] with long-term current use of insulin ([facility]) Change every 10 days. 200 each 5 Active pen needle, diabetic 31G X 5 MM miscIndications: Type 2 diabetes mellitus with hyperglycemia, with long-term current use of insulin ([facility]) Use as directed with insulin pen. 100 each 5 Active [employer] miscIndications: Type 2 diabetes mellitus with hyperglycemia, with long-term current use of insulin ([facility]) Use to dispose of insulin pen needles up to 4x daily. 1 each 5 Active metFORMIN (Glucophage) 500 MG tabletIndication s:Type 2 diabetes mellitus with hyperglycemia, with long-term current use of insulin ([facility]) TAKE 2 TABLETS BY MOUTH [...] Type Department Care Team Description 07/04/2024 Refill [facility] [address] [place] [address] Eloise Jaramillo, [place] Type 2 diabetes mellitus with hyperglycemia, with long-term current use of insulin ([facility]) from Last 3 Months Immunizations Immunization Administration [...] any time in the past 12 m [facility], were you homeless or living in a intermediate (including now)? No 05/23/2024 Utilities Answer Date Recorded In the past 12 months has e [employer], gas, oil, or water [employer] threatened to shut off services in your [...] Care Team (Late st Contact Info) Description 12/25/2024 12:20 PM EST Office [facility] [address] [place] [address] Eloise Jaramillo PA [address] [facility] [address] [place] [address] Health Maintenance Due Date Last Done Comments [facility]-Depression Screening 1964 [facility]-HIV Screening 1964 [facility]-Hepatitis C Screening 1964 [facility]-Infant/Child/Adol SDOH Screenings 1964 Diabetes: Dental Exam 1974 [...] (2 - Td or Tdap) 10/25/2020 10/25/2010 [id number] Vaccine ( season) 2023 01/25/2021, 05/06/2020, 04/08/2020 FIT-DNA 05/18/2024 [...] Procedure Name Priority Date/Time Associated Diagnosis Comments HEMOGLOBIN A1C Routine 05/09/2024 11:59 AM EDT Coronary artery disease involving [place] coronary artery of [place] heart without angina pectoris from Last 3 Months or Most Recently Relevant to Health Maintenance Results * (ABNORMAL) Hemoglobin A1c (05/09/2024 11:59 AM EDT) Hemoglobin A1c 7.6(H) <5.7 % 05/09/2024 1:41 PM EDT [facility] Blood Venous blood specimen / Unknown Venipuncture / Unknown 05/09/2024 11:59 AM EDT 05/09/2024 11:59 AM EDT Narrative [facility] - 05/09/2024 1:41 PM EDT HA1C Interpretive Data: Diagnosis of Diabetes: Diabetic > or = 6.5% Pre-diabetic 5.7 to 6.4% Non-diabetic < or = 5.6% Glycemic Targets for Type I and Type II Diabetics: Non- Adults <7.0% Adults <6.0% Children and Adolescents <7.5% Source: [place] [employer]. Standards of medical care in diabetes,2017. Diabetes Care.2017:40 (suppl 1):S1-S135. HbA1c assay performed by an ion-exchange chromatography method that is certified traceable to the DCCT. Sb HIGH LAB BLOOD ORDERABLES Final Result [facility] [address] [place] [address] from Last 3 Months or Most Recently Relevant to Health Maintenance Insurance ANTHEM Advance Directives * Full Code (Latest Code Status on File) Date Activated Date Inactivated Comments 05/22/2024 3:42 PM 05/30/2024 4:37 PM Care Teams Insurance Agency Manager Relationship Specialty Start Date End Date Lennie Troy APRN [address] [place] [address] PCP - General 05/03/24 [place] MD [address] [address] Referring Physician 06/21/24
== END 2024-10-03 23:59 | disposition home or self-care (01) ==
LOC: LAB.DROPOF 10-04 13:45
PROVIDERS: PCP Nurse Practitioner; Visit Provider Nurse Practitioner
DX: S90.821A Blister (nonthermal), right foot, initial encounter (principal)
CPT/HCPCS: 87070; 87077; 87186; 87205

== ENCOUNTER 2024-12-02 12:36 | Outpatient (CLI) | payer BC, SELFPAY ==
[2024-12-02 16:29] LABS: Hematocrit 42.0 % (42.0-52.0); Hemoglobin 13.2 g/dL (14.1-18.0); Immature Granulocytes % 0.2 %; Mean Corpuscular HGB Conc 31.4 g/dL (31.8-35.4); Mean Corpuscular Hemoglobin 24.2 pg (27.0-31.2); Mean Corpuscular Volume 76.9 fl (80-94); Nucleated Red Blood Cells % 0 %; Platelet Count 323 K/mm3 (142-424); Red Blood Count 5.46 M/mm3 (4.60-6.20); Red Cell Distribution Width-SD 45.1 fL; White Blood Count 10.2 K/mm3 (4.8-10.8)
[2024-12-02 17:40] LABS: Thyroid Stimulating Hormone 0.56 uIU/mL (0.465-4.68)
[2024-12-02 22:54] LABS: Free T4 (Free Thyroxine) 1.32 ng/dl (0.78-2.19)
--- OUTSIDE RECORDS SUMMARY | 2024-12-04 12:47 | XMS_ITS | Clinical Summary ---
Author Organization [facility] Address [address] [place] [address] Care Team Providers Care Woodworker Helper Name Role Phone Lennie Troy APRN Primary Care Provider [phone] [place] MD Unavailable [phone] Allergies No known active allergies Medications albuterol [...] Information Patient not taking.Reported on 06/20/2024 Tiotropium [place] Monohydrate (Spiriva Respimat) 2.5 MCG/ACT inhaler Inhale [...] hyperglycemia, with long-term current use of insulin Take 1 tablet by mouth daily. 90 tablet 1 5 12/11/19 25 Active insulin glargine (Lantus SoloStar) 100 UNIT/ML injection penIndications:T ype 2 diabetes mellitus with hyperglycemia, with long-term current use of insulin Inject 36 Units under the skin nightly. 15 mL 4 5 12/11/19 25 Active insulin lispro 100 UNIT/ML injection penIndications:T ype 2 diabetes mellitus with hyperglycemia, with long-term current use of insulin Inject 10 Units under the skin 3 [...] hyperglycemia, with long-term current use of insulin Change every 10 days. 200 each 5 Active pen needle, diabetic 31G X 5 MM miscIndications: Type 2 diabetes mellitus with hyperglycemia, with long-term current use of insulin Use as directed with insulin pen. 100 each 5 Active [employer] miscIndications: Type 2 diabetes mellitus with hyperglycemia, with long-term current use of insulin Use to dispose of insulin pen needles up to 4x daily. 1 each 5 Active metFORMIN (Glucophage) 500 MG tabletIndication s:Type 2 diabetes mellitus with hyperglycemia, with long-term current use of insulin TAKE 2 TABLETS BY MOUTH 2 TIMES A DAY WITH MEALS. 360 tablet 1 5 Active Active Problems Problem Noted Date Diagnosed Date Atrial fibrillation with rapid ventricular respo nse 05/24/2024 Volume overload 05/23/2024 S/P CABG x 4 05/22/2024 Acute blood loss anemia 05/22/2024 ADD [...] for CABG -Plan for fast track extubation Post-op pain 05/22/2024 12/01/2024 Electrolyte abnormality 05/22/202405/14 Leukocytosis 05/22/2024 05/28/2024 Immunizations Immunization Administration Dates Next Due Tdap [...] any time in the past 12 m [facility], were you homeless or living in a residential (including now)? No 05/23/2024 Utilities Answer Date [...] Description 12/25/2024 12:20 PM EST Office Visit [facility] [address] [place] [address] Eloise Jaramillo PA [address] [place] [address] Health Maintenance Due Date Last Done Comments [facility]-Depression Screening 1965 [facility]-HIV Screening 1964 [facility]-Hepatitis C Screening 1964 [facility]-Infant/Child/Adol SDOH Screenings 1964 Diabetes: Dental Exam 1974 [facility]-Hepatitis A Vaccines (1 of 2 - Risk 2-dose series) 12/05/1983 [facility]-Pneumococcal Vaccine: 50+ Years (1 of 2 - PCV) 12/05/1983 CT Colonography 2009 Colonoscopy 2009 FIT 2009 FOBT 2009 Sigmoidoscopy 2009 [facility]-Zoster Vaccines (1 of 2) 2014 [facility]-DTaP,Tdap,and Td Vaccines (2 - Td or Tdap) 10/25/2020 10/25/2010 FIT-DNA 05/18/2024 05/18/2021 [facility]-Colorectal Cancer Screening 05/18/2024 [facility]-Diabetes: Hemoglobin A1C 08/08/2024 05/09/2024 [id number] Vaccine ( season) 2024 01/25/2021, 05/06/2020, 04/08/2020 [facility]-Influenza Vaccine (#1) 2024 [facility]- SDOH Screenings 11/22/2024 [facility]-Adult SDOH Screenings 11/22/2024 05/23/2024 [facility]-RSV Vaccine: 60+ Years or (1 - Risk 60-74 years 1-dose series) 2024 [facility]-Obesity Intervention Completed 025, 06/13/2024, 05/09/2024, Additional [...] 11:59 AM EDT Coronary artery disease involving [place] coronary artery of [place] heart without angina pectoris from Last 3 Months or Most Recently Relevant to Health Maintenance Results * (ABNORMAL) Hemoglobin A1c (05/09/2024 11:59 AM EDT) Hemoglobin A1c 7.6(H) <5.7 % 05/09/2024 1:41 PM EDT [facility] Blood Venous blood specimen / Unknown Venipuncture / Unknown 05/09/2024 11:59 AM EDT 05/09/2024 11:59 AM EDT Narrative [facility] - 05/09/2024 1:41 PM EDT HA1C Interpretive Data: Diagnosis of Diabetes: Diabetic > or = 6.5% Pre-diabetic 5.7 to 6.4% Non-diabetic < or = 5.6% Glycemic Targets for Type I and Type II Diabetics: Non- Adults <7.0% Adults <6.0% Children and Adolescents <7.5% Source: [place] [employer]. Standards of medical care in diabetes,2017. Diabetes Care.2017:40 (suppl 1):S1-S135. HbA1c assay performed by an ion-exchange chromatography method that is certified traceable to the DCCT. us Sb HIGH LAB BLOOD ORDERABLES Final Result [facility] [address] [place] [address] from Last 3 Months or Most Recently Relevant to Health Maintenance Insurance ANTH Advance Directives * Full Code (Latest Code Status on File) Date Activated Date Inactivated Comments 05/22/2024 3:42 PM 05/30/2024 4:37 PM Care Teams Woodworker Helper Relationship Specialty Start Date End Date Lennie Troy APRN [facility] [place] [address] PCP - General 05/03/24 [place] Dunham MD [address] [place] [address] Referring Physician 06/21/24
== END 2024-12-02 23:59 ==
LOC: LAB.DROPOF 12-04 12:36
PROVIDERS: PCP Nurse Practitioner; Visit Provider Nurse Practitioner
DX: R07.0 Pain in throat (principal); R59.0 Localized enlarged lymph nodes; Z87.891 Personal history of nicotine dependence; J01.00 Acute maxillary sinusitis, unspecified; K59.00 Constipation, unspecified
CPT/HCPCS: 84439; 84443; 85025

== ENCOUNTER 2024-12-10 10:19 | Outpatient (CLI) | payer BC, SELFPAY ==
--- NOTE | 2024-12-10 10:30 | US_ITS ---
FINAL REPORT CLINICAL HISTORY: throat pain, hx smoking, LAD FINDINGS: Limited sonographic images of the neck was obtained. There are a few small scattered benign-appearing lymph nodes. The submandibular and parotid glands appear homogeneous and symmetric. IMPRESSION: Few small scattered benign-appearing lymph nodes. If clinical suspicion of an underlying mass persists, recommend an infuse neck CT. Reviewed, Interpreted and Dictated by Andrea Giron MD Transcribed by Arlene Peralta Authenticated and [facility]
--- OUTSIDE RECORDS SUMMARY | 2024-12-10 10:36 | XMS_ITS | Clinical Summary ---
Author Organization [facility] Address [address] [place] [address] Care Team Providers Care Diving Board Assembler Name Role Phone Lennie Troy APRN Primary Care Provider [phone] [place] MD Unavailable [phone] Allergies No known active allergies Medications albuterol [...] Information Patient not taking.Reported on 06/20/2024 Tiotropium [place] Monohydrate (Spiriva Respimat) 2.5 MCG/ACT inhaler Inhale [...] the skin nightly. 15 mL 4 5 Active insulin lispro 100 UNIT/ML injection penIndications:T [...] any time in the past 12 m [facility], were you homeless or living in [...] Description 12/25/2024 12:20 PM EST Office Visit [place] [facility] Endocrinology [address] [place] [address] Eloise Jaramillo PA [address] [place] [address] Health Maintenance Due Date Last [...] Screening 05/18/2024 [facility]-Diabetes: Hemoglobin A1C 08/08/2024 05/09/2024 [id number] Vaccine ( season) 2024 01/25/2021, 05/06/2020, 04/08/2020 [...] 11:59 AM EDT Coronary artery disease involving [place] coronary artery of [place] heart without angina pectoris from Last 3 Months or Most Recently Relevant to Health Maintenance Results * (ABNORMAL) Hemoglobin A1c (05/09/2024 11:59 AM EDT) Hemoglobin A1c 7.6(H) <5.7 % 05/09/2024 1:41 PM EDT [facility] Blood Venous blood specimen / Unknown Venipuncture / Unknown 05/09/2024 11:59 AM EDT 05/09/2024 11:59 AM EDT Narrative [facility] - 05/09/2024 1:41 PM EDT HA1C Interpretive Data: Diagnosis of Diabetes: Diabetic > or = 6.5% Pre-diabetic 5.7 to 6.4% Non-diabetic < or = 5.6% Glycemic Targets for Type I and Type II Diabetics: Non- Adults <7.0% Adults <6.0% Children and Adolescents <7.5% Source: [place] Diabetes [employer]. Standards of medical care in diabetes,2017. Diabetes Care.2017:40 (suppl 1):S1-S135. HbA1c assay performed by an ion-exchange chromatography method that is certified traceable to the DCCT. Sb HIGH LAB BLOOD ORDERABLES Final Result [facility] [address] [place] [address] from Last 3 Months or Most Recently Relevant to Health Maintenance Insurance ANTHEM Advance Directives * Full Code (Latest Code Status on File) Date Activated Date Inactivated Comments 05/22/2024 3:42 PM 05/30/2024 4:37 PM Care Teams Diving Board Assembler Relationship Specialty Start Date End Date Lennie Troy APRN [facility] [place] [address] PCP - General 05/03/24 [place] Dunham MD [address] [place] [address] Referring Physician 06/21/24
--- NOTE | 2024-12-10 11:00 | US_ITS ---
FINAL REPORT CLINICAL HISTORY: throat pain, hx smoking, LAD FINDINGS: Limited sonographic images of the thyroid were obtained. The right lobe of the thyroid measures 5.2 x 2.0 x 1.7 cm. The left lobe of the thyroid measures 5.1 x 1.7 x 1.9 cm. Isthmus measures 5 mm. There is an anechoic focus in the right lobe of the thyroid with smooth margins measuring 6 mm in greatest dimension. IMPRESSION: TR 1 nodule in the right lobe of the thyroid. No follow-up is recommended. Reviewed, Interpreted and Dictated by Andrea Giron MD Transcribed by Arlene Peralta [facility]henticated [facility]
== END 2024-12-10 23:59 | disposition home or self-care (01) ==
LOC: RAD 10:20
PROVIDERS: PCP Nurse Practitioner; Visit Provider Nurse Practitioner
DX: E04.1 Nontoxic single thyroid nodule (principal); R07.0 Pain in throat; R59.0 Localized enlarged lymph nodes; Z87.891 Personal history of nicotine dependence
CPT/HCPCS: 76536